=== PATIENT | male | born 1960 | race Caucasian/White ===

== ENCOUNTER 2022-01-19 08:59 | Day surgery (SDC) | payer MEDICARE, MEDICAID, SELFPAY ==
--- NOTE | 2022-01-18 14:24 | HO.ANESPROP2 ---
Documented by User: Nkechi Duran NP 01/18/22 14:25 HPI - Anesthesia Eval Consult details Narrative: 61yo M for Right Basilic Vein Transposition ESRD with HD [facility] Past Medical History Medical History Acute renal failure on dialysis Blind right eye Chronic kidney disease Edema End stage renal disease Gout HTN (hypertension) Neuropathy Sleep apnea Social History Social History Patient Tobacco Use Status: Never used Tobacco Use of substances other than those prescribed or required for medical reasons: No Are you DNR?: No Advance Directives: No Advance Directives Information Provided: Yes Meds Allergies Allergy/AdvReac Type Severity Reaction Status Date / Time prednisone AdvReac Unknown shortness Verified 08/20/19 00:00 of breath zolpidem AdvReac Hallucinati Verified 01/18/22 13:48 ons Home Medications Medication Instructions Recorded Confirmed Last Taken Type albuterol sulfate 90 mcg/actuation 2 puff inhalation Q6H PRN wheezing 01/18/22 01/18/22 Unknown History aerosol inhaler allopurinol 100 mg tablet 2 tab PO DAILY 01/18/22 01/18/22 Unknown History calcitriol 0.5 mcg capsule 1 cap PO 2XW 01/18/22 01/18/22 Unknown History clonidine HCl 0.1 mg tablet 1 tab PO TID 01/18/22 01/18/22 Unknown History clonidine HCl 0.3 mg tablet 1 tab PO TID 01/18/22 01/18/22 Unknown History ferrous sulfate 325 mg (65 mg 1 tab PO DAILY 01/18/22 01/18/22 Unknown History iron) tablet,delayed release folic acid 1 mg tablet 1 tab PO DAILY 01/18/22 01/18/22 Unknown History furosemide 80 mg tablet 1 tab PO BID 01/18/22 01/18/22 Unknown History gabapentin 100 mg capsule 2 cap PO TID 01/18/22 01/18/22 Unknown History levothyroxine 125 mcg tablet 1 tab PO QAM 01/18/22 01/18/22 Unknown History lorazepam 0.5 mg tablet 1 - 2 tab PO 01/18/22 Unknown History metoprolol succinate 50 mg 1 tab PO DAILY 01/18/22 01/18/22 01/19/22 History tablet,extended release 24 hr oxycodone 5 mg tablet 1 tab PO Q6H PRN severe pain 01/18/22 01/18/22 Unknown History pregabalin 50 mg capsule 1 cap PO DAILY PRN unknown 01/18/22 01/18/22 01/19/22 History sevelamer carbonate 800 mg tablet 3 tab PO TID 01/18/22 01/18/22 Unknown History Exam Exam Date and Time: January 18, 2022 142 Assessment and Plan Assessment Anesthesia Assessment: Chart Reviewed Documented by User: Vito Gloria MD 01/19/22 11:50 PMFSH Past Medical History Medical History Acute renal failure on dialysis Blind right eye Chronic kidney disease Edema End stage renal disease Gout HTN (hypertension) Neuropathy Sleep apnea Family History Family history of problems with anesthesia: No Surgical History History of Problems with Anesthesia: No Social History Social History Patient Tobacco Use Status: Never used Tobacco Use of substances other than those prescribed or required for medical reasons: No Are you DNR?: No Advance Directives: No Advance Directives Information Provided: Yes Meds Allergies Allergy/AdvReac Type Severity Reaction Status Date / Time prednisone AdvReac Unknown shortness Verified 08/20/19 00:00 of breath zolpidem AdvReac Hallucinati Verified 01/18/22 13:48 ons Home Medications Medication Instructions Recorded Confirmed Last Taken Type albuterol sulfate 90 mcg/actuation 2 puff inhalation Q6H PRN wheezing 01/18/22 01/18/22 Unknown History aerosol inhaler allopurinol 100 mg tablet 2 tab PO DAILY 01/18/22 01/18/22 Unknown History calcitriol 0.5 mcg capsule 1 cap PO 2XW 01/18/22 01/18/22 Unknown History clonidine HCl 0.1 mg tablet 1 tab PO TID 01/18/22 01/18/22 Unknown History clonidine HCl 0.3 mg tablet 1 tab PO TID 01/18/22 01/18/22 Unknown History ferrous sulfate 325 mg (65 mg 1 tab PO DAILY 01/18/22 01/18/22 Unknown History iron) tablet,delayed release folic acid 1 mg tablet 1 tab PO DAILY 01/18/22 01/18/22 Unknown History furosemide 80 mg tablet 1 tab PO BID 01/18/22 01/18/22 Unknown History gabapentin 100 mg capsule 2 cap PO TID 01/18/22 01/18/22 Unknown History levothyroxine 125 mcg tablet 1 tab PO QAM 01/18/22 01/18/22 Unknown History lorazepam 0.5 mg tablet 1 - 2 tab PO 01/18/22 Unknown History metoprolol succinate 50 mg 1 tab PO DAILY 01/18/22 01/18/22 01/19/22 History tablet,extended release 24 hr oxycodone 5 mg tablet 1 tab PO Q6H PRN severe pain 01/18/22 01/18/22 Unknown History pregabalin 50 mg capsule 1 cap PO DAILY PRN unknown 01/18/22 01/18/22 01/19/22 History sevelamer carbonate 800 mg tablet 3 tab PO TID 01/18/22 01/18/22 Unknown History Exam Airway Mallampati Class: III TM Dist: >3cm Neck ROM: Full Loose/Missing/Broken Teeth: Yes (lower bottom 4 teeth missing) Heart: [id number] Lungs: cta b/l Assessment and Plan Assessment Anesthesia Assessment: Anesthesia Plan Discussed Final Anesthetic Review Family History of Problems with Anesthesia: No History of Problems with Anesthesia: No NPO: Yes ASA Class: IV Final Preanesthetic Review: No Changes in Pt Med Stat, Meds/Allgs Chart Reviewed, Consent Obtained/Reviewed and Anes Risks/Benef Reviewed Patient Risk: High Procedure Risk: Intermediate Assessment/Block/Sedation in SS: Assess/Block/Sedation-SS Anesthetic Plan Anesthetic Plan: GA, MAC: and Agree w/ Assess. and Plan Disposition: Standard PACU
[2022-01-19] VITALS (10 sets, daily range): BP systolic 106–155; BP diastolic 56–85; PULSE 61–82; RESP 14–22; TEMP 35.8–36.3; O2SAT 93–100; BMI 33.5
[2022-01-19 10:29] LABS: Anion Gap 22 (12-20); Carbon Dioxide 23 mmol/L (22-29); Chloride 99 mmol/L (96-108); Potassium 5.5 mmol/L (3.3-5.1); Sodium 138 mmol/L (135-145)
[2022-01-19] MEDS: 0.9 % Sodium Chloride 1,000 ML 50 ML IVCONT (11:31)
--- NOTE | 2022-01-19 16:22 | P.OP_ITS ---
Operative Note Operative Note Date of Service: 01/19/22 Narrative: Pre-op Dx: ESRD Post-op Dx: ESRD Operation: Right arm basilic vein transposition Surgeon: Jarrod Garcia MD Anesthesia: MAC, local Procedure: The patient was placed on the OR table in a supine position. Lower extremity compression devices were placed. The anesthesiologist administered the pre- operative antibiotic. An US of the upper arm cephalic and basilic veins was performed on the right arm. After successful induction of MAC anesthesia, the right arm was prepped and draped in a sterile fashion. A surgical timeout took place. Local anesthetic was used. An incision was made over the upper arm basilic vein, above the elbow. The Bovie electrocautery was used to dissect through the subcutaneous tissue. The basilic vein was isolated and skeletonized. Vessel loops were placed around it. Two more incisions were made along the medial aspect of the upper arm, over the basilic vein. The entire basilic vein was dissected out. Branches were ligated and divided with 2-0 silk ties. The basilic vein was ligated and divided just above the medial epicondyle of the elbow. The basilic vein was marked and tunneled along the bicep. The brachial artery was dissected out, through the incision just above the elbow. Proximal and distal control was obtained. The cut end of the basilic vein was anastomosed to the brachial artery using a 6-0 Prolene suture, in a running fashion. The clamps were released and a thrill was noted. Hemostasis was maintained. The incisions were closed in layers. Surgical glue was applied. The hand was well perfused. The patient tolerated the procedure well. All in strument, sponge and needle counts were correct at the end of the case. Findings: The cephalic outflow vein from the first operation still has flow. It was not ligated.
[2022-01-19] MEDS: fentaNYL citrate/PF 100 MCG/2 ML VIAL 25 MCG IVPUSH ×4 (16:25→16:50)
[2022-01-19] MEDS: oxyCODONE HCl Immed Release 5 MG TABLET PO (16:45)
[2022-01-19] MEDS: Acetaminophen 325 MG TABLET 650 MG PO (17:35)
== END 2022-01-19 17:38 | disposition home or self-care (01) ==
PROVIDERS: Nurse Practitioner; PCP Internal Medicine; Visit Provider Transplant Surgery
PROC: (CPT 36819; principal; 2022-01-19 11:40)
DX: I12.0 Hypertensive chronic kidney disease with stage 5 chronic kidney disease or end stage renal disease (principal); N18.6 End stage renal disease; Z99.2 Dependence on renal dialysis; I25.10 Atherosclerotic heart disease of native coronary artery without angina pectoris; Z79.899 Other long term (current) drug therapy; Z88.8 Allergy status to other drugs, medicaments and biological substances
CPT/HCPCS: 36819; 36415; 80051; J0690; J2250; J2795; J3010; J3370

== ENCOUNTER → 2022-10-02 14:06 | Outpatient (BNVA) | payer MEDICARE, MEDICAID, SELFPAY | PROVIDERS: PCP Internal Medicine; Visit Provider Internal Medicine | DX: M79.604 Pain in right leg (principal); M79.605 Pain in left leg | CPT/HCPCS: 99202 ==

== ENCOUNTER 2022-11-29 06:11 | Inpatient (IN) | payer MEDICARE, MEDICAID, SELFPAY ==
[2022-11-29] VITALS (11 sets, daily range): BP systolic 132–191; BP diastolic 68–86; PULSE 73–90; RESP 14–18; TEMP 36.4–36.9; O2SAT 96–99; BMI 34.7; BMI 35.2
--- NOTE | ~2022-11-29 | US_ITS ---
EXAMINATION: US ARTERIAL DUPLEX LOWER EXTREMITY BILATERAL CLINICAL INFORMATION: Bilateral severe lower extremity pain, rule out peripheral arterial disease. COMPARISON: None TECHNIQUE: Linear transducer grayscale and duplex Doppler ultrasound images of the bilateral lower extremities were obtained. FINDINGS: Duplex Doppler interrogation of the bilateral lower extremities showed normal tri and biphasic arterial waveforms. Arterial peak systolic velocities are as follows: Right: Common femoral: 102 cm/sec Profunda femoral: 43 cm/sec Superficial femoral proximal: 55 cm/sec Superficial femoral mid: 53 cm/sec, incidental collateral branches incidentally noted. Superficial femoral distal: 53 cm/sec Popliteal: 60 cm/sec. Posterior tibial: 46 cm/sec Peroneal: 57 cm/sec Anterior tibial: 46 cm/sec Left: Common femoral: 108 cm/sec Profunda femoral: 62 cm/sec Superficial femoral proximal: 72 cm/sec Superficial femoral mid: 79 cm/sec. Superficial femoral distal: 99 cm/sec, incidental collateral branches. Popliteal: 85 cm/sec. Posterior tibial: 52 cm/sec, incidental collateral branches proximally. Peroneal: 114 cm/sec Anterior tibial: 144 cm/sec US/US arterial duplex LE BI IMPRESSION: Mildly asymmetrically elevated arterial velocities in the left anterior tibial and peroneal arteries suggestive of mild stenosis.
--- NOTE | ~2022-11-29 | CT_ITS ---
EXAMINATION: CT ABDOMEN AND PELVIS WITHOUT CONTRAST CLINICAL INFORMATION: Flank pain, rule out kidney stone. COMPARISON: None available. TECHNIQUE: Multidetector volumetric imaging was performed from the superior aspect of the liver through the pubic symphysis. Sagittal and coronal reformatted images were obtained on the technologist's workstation. This CT examination was performed using dose optimization techniques as appropriate, variously including the following: *Automated exposure control *Adjustment of mA and/or kV according to patient size (this includes techniques or standardized protocols for targeted exams where dose is matched to indication/reason for exam; i.e. extremities or head) *Use of iterative reconstruction technique DLP: 701 mGy-cm FINDINGS: CEILING CLEANER: Median sternotomy hardware. Pelvic phleboliths. Nonspecific bowel pattern. LUNG BASES: Enlarged heart. No pericardial effusion. Mild atelectasis. LIVER, GALLBLADDER, AND BILIARY TREE: The liver is normal in size, shape, and attenuation. No focal hepatic lesion or biliary ductal dilatation is present. The gallbladder is under distended containing 2 cm cholesterol gallstone but no gallbladder wall thickening, or obvious pericholecystic inflammatory changes. PANCREAS: Unremarkable. SPLEEN: Unremarkable. ADRENAL GLANDS: Unremarkable. KIDNEYS AND URETERS: Bilateral kidneys are atrophic. Bilateral renal lesions, some too small to characterize. 2 potential solid lesions in the left lower pole, larger measuring 2.6 cm. No hydronephrosis, hydroureter, or calculi seen. No perinephric stranding. BLADDER: Under distended with diffuse wall thickening. The right superior aspect of the urinary bladder is tethered into the origin of the right fat filled inguinal hernia. GASTROINTESTINAL TRACT: Under distended stomach, small hiatal hernia. Nonobstructive bowel pattern. Unremarkable terminal ileum and appendix. Moderate fecal retention. Diverticulosis without diverticulitis. ABDOMINAL WALL: Large fat filled inguinal hernias, right greater than left. The superior aspect of the urinary bladder is tethered into the origin of the right groin hernia. LYMPH NODES: No pathologic retroperitoneal lymphadenopathy. Nonspecific groin lymph nodes, largest on the left measures 2 cm. VASCULAR: Atherosclerotic calcifications nonaneurysmal aorta and tortuous iliac arteries. Somewhat small caliber inferior vena cava, correlate with volume status. PELVIC VISCERA: Prostate containing calcifications. Pelvic phleboliths. OSSEOUS STRUCTURES: No suspicious osseous lesions. CT/CT abdomen pelvis wo IV con IMPRESSION: No CT evidence of renal, ureteral, bladder calculi, or hydroureteronephrosis. Atrophic kidneys. Bilateral renal lesions with suspicion for left lower pole solid lesion(s). Initial renal sonographic evaluation recommended. If indeterminate, renal protocol MRI should be performed. Cholelithiasis. Diverticulosis. Large fat filled inguinal hernias, right greater than left. On the right, superior aspect of the urinary bladder tethered into the origin of the inguinal hernia. Fleischner guidelines were followed.
--- NOTE | ~2022-11-29 | US_ITS ---
EXAMINATION: US ABDOMEN LIMITED CLINICAL INFORMATION: Right upper quadrant pain. COMPARISON: CT scan of the abdomen and pelvis from earlier today. TECHNIQUE: Real-time imaging of the right upper quadrant abdominal viscera. FINDINGS: PANCREAS: Visualized portions unremarkable. LIVER: Unremarkable. GALLBLADDER: Multiple gallstones are seen without mural thickening or pericholecystic fluid. Color Doppler showed no abnormal vascular flow. COMMON BILE DUCT: Normal in caliber measuring 0.6 cm in diameter. RIGHT KIDNEY: Renal cortical thinning. Interpolar anechoic cyst measures 1.3 cm. No hydronephrosis or nephrolithiasis. Color Doppler showed no abnormal vascular flow. FREE FLUID: None. US/US abdomen limited IMPRESSION: 1. Cholelithiasis without evidence for acute cholecystitis. 2. Right renal cortical atrophy and small interpolar right renal cyst demonstrates benign features, not requiring follow-up at this time.
--- NOTE | ~2022-11-29 | XR_ITS ---
EXAMINATION: XR RIBS, RIGHT CLINICAL INFORMATION: Pain. COMPARISON: None available. TECHNIQUE: A frontal chest and 5 views of the right ribs were obtained. FINDINGS: Lungs are clear. No consolidation, pneumothorax, or pleural effusion. The cardiomediastinal silhouette and pulmonary vasculature are normal. There has been a prior median sternotomy. Osseous structures are unremarkable. Ribs are intact. No fractures are identified. XR/XR ribs RT min 3V w CXR1V IMPRESSION: No active cardiopulmonary disease. No evidence for rib fracture.
--- NOTE | ~2022-11-29 | XR_ITS ---
EXAMINATION: XR FOOT, LEFT CLINICAL INFORMATION: Left foot pain. COMPARISON: None available. TECHNIQUE: AP, lateral, and oblique views of the left foot. FINDINGS: Dorsiflexion of the digits limits evaluation of the phalanges. There is no acute fracture or dislocation. The tarsal bones are normally aligned. Small plantar and retrocalcaneal spurs are noted. Moderate to severe atherosclerosis is noted. XR/XR foot LT 2V IMPRESSION: 1. Small degenerative calcaneal spurs. No acute fracture. 2. Moderate to severe atherosclerosis.
--- NOTE | 2022-11-29 06:32 | MHC.EDTECH ---
Patient came in by ambulance, Patient was changed into hospital attire,vitals were taken. Call randhawa within reach
--- NOTE | 2022-11-29 06:45 | ED.GENADULT ---
HPI - General Adult General Chief complaint: General Medical Stated complaint: dizziness Time Seen by Provider: 11/29/22 06:40 Source: patient Mode of arrival: EMS Limitations: other (poor historian ) History of Present Illness HPI narrative: Patient is a 62 year old male with a history of ESRD who is presenting with bilateral leg pain and right rib pain. Patient states that his legs have been in pain for 12 years due to chronic wounds bilaterally. He is followed by the wound care center for these wounds has baseline numbness, and tingling. He is unable to describe his right rib pain, poor historian states it hurts w/ certain movements and with breathing but denies falls. Patient was unable to go to dialysis this morning due to his pain. He states hes here for pain control Related Data Home Medications Medication Instructions Recorded Confirmed allopurinol 100 mg tablet 2 tab PO DAILY 01/18/22 10/02/22 calcitriol 0.5 mcg capsule 1 cap PO 2XW 01/18/22 10/02/22 levothyroxine 125 mcg tablet 1 tab PO QAM 01/18/22 10/02/22 metoprolol succinate 50 mg 1 tab PO DAILY 01/18/22 10/02/22 tablet,extended release 24 hr pregabalin 50 mg capsule 1 cap PO DAILY PRN unknown 01/18/22 10/02/22 sevelamer carbonate 800 mg tablet 3 tab PO TID 01/18/22 10/02/22 Previous Rx's Medication Instructions Recorded atorvastatin 40 mg tablet 40 mg PO DAILY #30 caps 04/14/20 amlodipine 10 mg tablet 10 mg PO DAILY #30 tabs 09/23/20 Allergies Allergy/AdvReac Type Severity Reaction Status Date / Time prednisone AdvReac Unknown shortness Verified 10/02/22 14:09 of breath zolpidem AdvReac Hallucinati Verified 10/02/22 14:09 ons Review of Systems Review of Systems: Constitutional : No Weight loss, No Fever, No Chills, No Fatigue, No Malaise ENT/Mouth : No sore throat, No Rhinorrhea Eyes: No Eye Pain, No Swelling, No Redness Cardiovascular : No Chest Pain, No SOB, No Dyspnea on Exertion, No Orthopnea, No Edema, No Palpitations Respiratory : No Cough, No Sputum, No Wheezing Gastrointestinal : No Nausea, No Vomiting, No Diarrhea, No Constipation, No abdominal Pain, No Hematochezia, No Melena Genitourinary : No Dysuria, No Urinary Frequency, No Hematuria, Musculoskeletal : +Right sided rib pain, No joint pain, No Myalgias, No Joint Swelling Skin : +bilateral chornic leg wounds Neuro : No Weakness, No Numbness, No Dizziness, No Headache Psych : No Anxiety/Panic, No Depression All other systems reviewed and are negative Yes all other systems are reviewed and are negative [facility] Past Medical History Attestation statement: The following information was validated with the patient. Source: old records reviewed and nursing notes reviewed Medical History (Updated 11/29/22 @ 14:59 by BEN [place]) Acquired hypothyroidism Acute renal failure on dialysis Atherosclerosis of inupiat coronary artery of inupiat heart without angina pectoris Blind right eye Chronic diastolic heart failure Chronic gout due to renal impairment Chronic kidney disease Edema End stage renal disease ESRD on dialysis Essential hypertension Foot pain, bilateral Gout Hallucinations HTN (hypertension) Hyperlipidemia Impacted cerumen of left ear Impaired fasting glucose Iron deficiency anemia Moderate episode of recurrent major depressive disorder Neuropathy Normocytic anemia Obesity, Class II, BMI 35-39.9 Polyp of colon, adenomatous Restless leg syndrome Seasonal allergic rhinitis due to pollen Sensory neuropathy Sleep apnea Stasis dermatitis of both legs Thrombocytopenia Surgical History (Updated 10/01/22 @ 12:13 by Jeronimo Lopez) History of coronary artery bypass graft Social History Social History Alcohol intake: never Patient Tobacco Use Status: Never used Tobacco Smoked in Last 30 Days: No Use of substances other than those prescribed or required for medical reasons: No Advance Directives: Yes Advance Directives Information Provided: No Advance Directives on File: No Physical Exam ED Vital Signs: Vital Signs - 24 hr 11/29/22 06:37 11/29/22 06:48 11/29/22 09:27 Temperature 98.0 F 98.0 F Pulse Rate 73 73 73 Respiratory Rate 18 18 Blood Pressure 137/75 137/75 155/82 H Pulse Oximetry 97 97 Oxygen Delivery Method Room Air Room Air 11/29/22 09:36 11/29/22 09:28 11/29/22 09:31 Temperature 98.3 F Pulse Rate 74 73 78 Respiratory Rate 16 Blood Pressure 166/80 H 132/74 139/68 Pulse Oximetry 96 Oxygen Delivery Method Room Air 11/29/22 11:31 11/29/22 13:51 11/29/22 14:33 Temperature 97.6 F 98.4 F Pulse Rate 79 90 81 Respiratory Rate 14 14 16 Blood Pressure 139/81 171/83 H Pulse Oximetry 96 98 Oxygen Delivery Method Room Air Room Air BMI result Body Mass Index 34.7 VSS Appearance: Alert.? Oriented X3.? No acute distress.? Head: Normocephalic, atraumatic, no step-offs or deformities Eyes: Pupils equal, round and reactive to light.? ENT: Pharynx normal.? Neck: Normal inspection.? Neck supple.? CVS: Normal heart rate and rhythm.? Pulses normal.? Respiratory: No respiratory distress.? Breath sounds normal.? Abdomen: Soft and nontender.? Skin: Skin warm and dry.? Normal skin color.? Normal skin turgor.? Extremities: +bilateral leg wounds to anterior shins that are chronic. No discharge or draingage noted form the wounds, no erythema or warmth. Pulses 1+ dorsalis pedis, anterior tibialis pulses symmetric bilaterally. Motor and sensory function intact bilaterally.? No calf ttp. 5/5 strength to bilateral upper and lower extremities. No footdrop. He is noted to have a large sore to the ball of his left foot lateral aspect, this has been there for a while per patient Back: +Right rib tenderness to palpation. No midline tenderness, no C-spine tenderness, full range of motion, no CVA tenderness bilaterally Neuro: Oriented X 3.? No motor deficit.? No sensory deficit. CN 2-12 intact Course Reevaluation(s) Reevaluation #1: CBC with a macrocytic anemia, chemistry with high potassium 5.4 will given Lokelma, anion gap of 22 likely secondary to acute dehydration poor p.o. intake, also elevated BUN and creatinine chronic in nature however dehydration likely contributing patient eating and drinking well. Patient does have a history of CKD and this is not a new finding, patient on hemodialysis scheduled to be dialyzed on Sunday. Troponin elevated 62.8 likely secondary to CKD, repeat troponin 77.9 not meeting delta criteria, patient without chest pain and shortness of breath, his right-sided pain is likely musculoskeletal, I do not suspect ACS. EKG is also nonischemic. BNP elevated 598, no baseline to compare with no sign sof fluid overload on exam or chf. D-dimer negative, unlikely PE/DVT. COVID negative. CT abdomen pelvis with no evidence of renal or ureteral bladder calculi or hydro ureter nephrosis, atrophic kidneys noted bilateral renal lesions with suspicion for left lower pole solid lesion, discuss this with patient, cholelithiasis no signs of acute cholecystitis, will obtain right upper quadrant ultrasound to rule out cholecystitis due to location of patient's pain. Diverticulosis. Bilateral large fat filled inguinal hernias right greater than left. Time: 11:30 Reevaluation #2: Ultrasound limited of abdomen right upper quadrant with cholelithiasis without evidence for acute cholecystitis. Right renal cortical atrophy and small interpolar right renal cyst. Time: 13:00 Reevaluation #3: US pending. Received a call patient's potassium 6.0. Will give calcium gluconate, D50, albuterol, patient's last glucose in the 80s will not give insulin at this time. Plan is for hospital admission patient will also likely require dialysis. Time: 14:23 Additional Reevaluation(s): Patient's BUN and creatinine chronically elevated secondary to CKD patient missed dialysis, reach out to renal, patient to be admitted, we will correct his potassium, they will dialyze patient while in the hospital. Dr. woods aware of plan. Medications Administered Generic Name Dose Route Start Last Admin Trade Name Freq PRN Reason Stop Dose Admin Calcium Gluconate 2 gm in 100 mls @ 50 mls/hr 11/29/22 14:19 11/29/22 14:39 Calcium Gluconate IV 11/29/22 16:18 50 mls/hr ONCE ONE Administration Discontinued Medications Generic Name Dose Route Start Last Admin Trade Name Freq PRN Reason Stop Dose Admin Albuterol Sulfate 10 mg 11/29/22 14:19 11/29/22 14:31 Albuterol Sulfate 2.5 Mg/0.5 Ml Vial.Neb INHALE 11/29/22 14:20 10 mg ONCE ONE Administration Dextrose 25 gm 11/29/22 14:19 11/29/22 14:39 Dextrose 50 % 25 Gm/50 Ml Syringe IVPUSH 11/29/22 14:20 25 gm ONCE ONE Administration Hydromorphone HCl 1 mg 11/29/22 09:46 11/29/22 10:11 Hydromorphone Hcl 1 Mg/Ml Syringe IVPUSH 11/29/22 09:47 1 mg ONCE ONE Administration Protocol Lidocaine 2 patch 11/29/22 13:15 11/29/22 14:38 Lidocaine 4 % Patch Adh..Patch TRANSDERMA 11/29/22 13:16 2 patch ONCE ONE Administration Protocol Morphine Sulfate 4 mg 11/29/22 06:46 11/29/22 08:35 Morphine Sulfate 4 Mg/Ml Cartridge IVPUSH 11/29/22 06:47 4 mg ONCE ONE Administration Protocol Sodium Zirconium Cyclosilicate 10 gm 11/29/22 13:14 11/29/22 14:39 Sodium Zirconium Cyclosilicate 10 Gm Powd.Pack PO 11/29/22 13:15 10 gm ONCE ONE Administration Medical Decision Making Medical Decision Making [facility] Narrative: 62 year old male presenting with bilateral leg and right rib pain. Exam significant for +bilateral leg wounds to anterior shins that are chronic. No discharge or draingage noted form the wounds, no erythema or warmth. Pulses 1+ dorsalis pedis, anterior tibialis pulses symmetric bilaterally. Motor and sensory function intact bilaterally.? No calf ttp. 5/5 strength to bilateral upper and lower extremities. No footdrop. He is noted to have a large sore to the ball of his left foot lateral aspect, this has been there for a while per patient. R rib pain w/ clear breath sounds This is likely chronic leg pain. Unlikely gangrene, necrotizing infection or acute arterial infarction since it is bilateral in nature, extremities are neurovacularly intact, and chronic in nature. No signs of acute cellulitis, septic joint. Rib pain is likely chornic in nature and musculoskeletal. No signs of flail chest or pneumothorax. This is unlikely pe, acs due to stable vitals and lack of chest pain or shortness of breath. Wounds on legs likely chronic, no signs of osteomyelitis, necrosis, gangrene, arterial or venous occlusion. Plan: labs, imaging, ekg, urine Differential Diagnosis Differential Diagnoses: The differential diagnosis associated with the presentation includes This is likely chronic leg pain. Unlikely gangrene, necrotizing infection or acute arterial infarction since it is bilateral in nature, extremities are neurovacularly intact, and chronic in nature. Rib pain is likely chornic in nature. This is unlikely pe, acs due to stable vitals and lack of chest pain or shortness of breath. Wounds on legs likely chronic, no signs of osteomyelitis, necrosis, gangrene, arterial or venous occlusion. Admission/Observation Consideration of admission/observation: Escalation of care including admission/observation considered Not indicated. Lab Data MDM Lab Attestation statement: I reviewed the patient's lab results. 11/29/22 08:05 11/29/22 08:05 Labs: Lab Results 11/29/22 11/29/22 11/29/22 Range/Units 08:05 08:05 08:05 WBC 8.9 (4.8-10.8) X10*3/uL RBC 3.64 L (4.60-5.80) X10*6/uL Hgb 12.3 L (14.0-18.0) g/dl Hct 37.1 L (42.0-52.0) % MCV 101.9 H (80.0-98.0) fL MCH 33.8 H (27.0-33.0) pg MCHC 33.2 (31.0-36.0) g/dl RDW 15.3 (11.0-16.0) % Plt Count 136 L (160-400) X10*3/uL MPV 9.6 (9.4-12.4) fL Immature Gran % (Auto) 0.6 H (0.0-0.4) % Neut % (Auto) 63.5 (45-73) % Lymph % (Auto) 21.7 (20-40) % [place] % (Auto) 11.1 H (2-11) % Eos % (Auto) 2.4 (0-4) % Baso % (Auto) 0.7 (0-2) % Lymph # (Auto) 1.9 (1.2-4.9) X10*3/uL [place] # (Auto) 1.0 (0.1-1.2) X10*3/uL Eos # (Auto) 0.2 (0.0-0.4) X10*3/uL Baso # (Auto) 0.1 (0.0-0.2) X10*3/uL Abs Immat Gran (auto) 0.05 H (0.00-0.03) X10*3/uL Absolute Neuts (auto) 5.7 (2.0-8.3) x10*3/uL Absolute Nucleated RBC 0.000 (0.0-0.012) X10*3/uL Nucleated RBC % (auto) 0.0 (0.0-0.2) /100WBC D-Dimer High Sensitivty 199 NG/ML Sodium 137 (135-145) mmol/L Potassium 5.4 H (3.3-5.1) mmol/L Chloride 93 L (96-108) mmol/L Carbon Dioxide 27 (22-29) mmol/L Anion Gap 22 H (12-20) BUN 68 H (9-16) mg/dL Creatinine 10.44 H* (0.5-1.4) mg/dL Estim Creat Clear Calc 8.5 Estimated GFR 5 Random Glucose 86 (60-115) mg/dL Lactic Acid (0.5-2.0) mmol/L Calcium 11.0 H (8.4-10.2) mg/dL Magnesium 2.1 (1.6-2.6) mg/dL Total Bilirubin 0.3 (0.0-1.0) mg/dL AST 15 (5-37) U/L ALT 5 (0-40) U/L Alkaline Phosphatase 88 (39-117) U/L Total Creatine Kinase 67 (38-174) U/L Troponin I High Sens (<3.5-35.0) ng/L C-Reactive Protein 1.38 H (< or = 0.50) mg/dL B-Natriuretic Peptide (<100) pg/mL Total Protein 7.2 (6.5-8.0) g/dL Albumin 3.8 (3.5-5.0) g/dL Lipase 31 (8-78) U/L Urine Color Urine Appearance Urine pH (5.0-9.0) Ur Specific [place] (1.005-1.025) Urine Protein (Neg-Trace) mg/dL Urine Glucose (UA) (Negative) mg/dL Urine Ketones (Negative) mg/dL Urine Blood (Negative) Urine Nitrite (Negative) Ur Leukocyte Esterase (Negative) Urine RBC (0-2) /HPF Urine WBC (0-5) /HPF Ur Squamous Epith Cells (0-2) /HPF Urine Bacteria (None Seen) Hyaline Casts (0-2) /LPF COVID-19 ([facility]) (Negative) COVID-19 Clin Com 11/29/22 11/29/2223 Range/Units 08:05 08:05 08:05 WBC (4.8-10.8) X10*3/uL RBC (4.60-5.80) X10*6/uL Hgb (14.0-18.0) g/dl Hct (42.0-52.0) % MCV (80.0-98.0) fL MCH (27.0-33.0) pg MCHC (31.0-36.0) g/dl RDW (11.0-16.0) % Plt Count (160-400) X10*3/uL MPV (9.4-12.4) fL Immature Gran % (Auto) (0.0-0.4) % Neut % (Auto) (45-73) % Lymph % (Auto) (20-40) % [place] % (Auto) (2-11) % Eos % (Auto) (0-4) % Baso % (Auto) (0-2) % Lymph # (Auto) (1.2-4.9) X10*3/uL [place] # (Auto) (0.1-1.2) X10*3/uL Eos # (Auto) (0.0-0.4) X10*3/uL Baso # (Auto) (0.0-0.2) X10*3/uL Abs Immat Gran (auto) (0.00-0.03) X10*3/uL Absolute Neuts (auto) (2.0-8.3) x10*3/uL Absolute Nucleated RBC (0.0-0.012) X10*3/uL Nucleated RBC % (auto) (0.0-0.2) /100WBC D-Dimer High Sensitivty NG/ML Sodium (135-145) mmol/L Potassium (3.3-5.1) mmol/L Chloride (96-108) mmol/L Carbon Dioxide (22-29) mmol/L Anion Gap (12-20) BUN (9-16) mg/dL Creatinine (0.5-1.4) mg/dL Estim Creat Clear Calc Estimated GFR Random Glucose (60-115) mg/dL Lactic Acid 1.0 (0.5-2.0) mmol/L Calcium (8.4-10.2) mg/dL Magnesium (1.6-2.6) mg/dL Total Bilirubin (0.0-1.0) mg/dL AST (5-37) U/L ALT (0-40) U/L Alkaline Phosphatase (39-117) U/L Total Creatine Kinase (38-174) U/L Troponin I High Sens 62.8 H (<3.5-35.0) ng/L C-Reactive Protein (< or = 0.50) mg/dL B-Natriuretic Peptide 598 H (<100) pg/mL Total Protein (6.5-8.0) g/dL Albumin (3.5-5.0) g/dL Lipase (8-78) U/L Urine Color Urine Appearance Urine pH (5.0-9.0) Ur Specific [place] (1.005-1.025) Urine Protein (Neg-Trace) mg/dL Urine Glucose (UA) (Negative) mg/dL Urine Ketones (Negative) mg/dL Urine Blood (Negative) Urine Nitrite (Negative) Ur Leukocyte Esterase (Negative) Urine RBC (0-2) /HPF Urine WBC (0-5) /HPF Ur Squamous Epith Cells (0-2) /HPF Urine Bacteria (None Seen) Hyaline Casts (0-2) /LPF COVID-19 ([facility]) (Negative) COVID-19 Clin Com 11/29/22 11/29/22 11/29/22 Range/Units 08:05 10:58 13:57 WBC (4.8-10.8) X10*3/uL RBC (4.60-5.80) X10*6/uL Hgb (14.0-18.0) g/dl Hct (42.0-52.0) % MCV (80.0-98.0) fL MCH (27.0-33.0) pg MCHC (31.0-36.0) g/dl RDW (11.0-16.0) % Plt Count (160-400) X10*3/uL MPV (9.4-12.4) fL Immature Gran % (Auto) (0.0-0.4) % Neut % (Auto) (45-73) % Lymph % (Auto) (20-40) % [place] % (Auto) (2-11) % Eos % (Auto) (0-4) % Baso % (Auto) (0-2) % Lymph # (Auto) (1.2-4.9) X10*3/uL [place] # (Auto) (0.1-1.2) X10*3/uL Eos # (Auto) (0.0-0.4) X10*3/uL Baso # (Auto) (0.0-0.2) X10*3/uL Abs Immat Gran (auto) (0.00-0.03) X10*3/uL Absolute Neuts (auto) (2.0-8.3) x10*3/uL Absolute Nucleated RBC (0.0-0.012) X10*3/uL Nucleated RBC % (auto) (0.0-0.2) /100WBC D-Dimer High Sensitivty NG/ML Sodium (135-145) mmol/L Potassium 6.0 H* (3.3-5.1) mmol/L Chloride (96-108) mmol/L Carbon Dioxide (22-29) mmol/L Anion Gap (12-20) BUN (9-16) mg/dL Creatinine (0.5-1.4) mg/dL Estim Creat Clear Calc Estimated GFR Random Glucose (60-115) mg/dL Lactic Acid (0.5-2.0) mmol/L Calcium (8.4-10.2) mg/dL Magnesium (1.6-2.6) mg/dL Total Bilirubin (0.0-1.0) mg/dL AST (5-37) U/L ALT (0-40) U/L Alkaline Phosphatase (39-117) U/L Total Creatine Kinase (38-174) U/L Troponin I High Sens 77.9 H (<3.5-35.0) ng/L C-Reactive Protein (< or = 0.50) mg/dL B-Natriuretic Peptide (<100) pg/mL Total Protein (6.5-8.0) g/dL Albumin (3.5-5.0) g/dL Lipase (8-78) U/L Urine Color Urine Appearance Urine pH (5.0-9.0) Ur Specific [place] (1.005-1.025) Urine Protein (Neg-Trace) mg/dL Urine Glucose (UA) (Negative) mg/dL Urine Ketones (Negative) mg/dL Urine Blood (Negative) Urine Nitrite (Negative) Ur Leukocyte Esterase (Negative) Urine RBC (0-2) /HPF Urine WBC (0-5) /HPF Ur Squamous Epith Cells (0-2) /HPF Urine Bacteria (None Seen) Hyaline Casts (0-2) /LPF COVID-19 ([facility]) Negative (Negative) COVID-19 Clin Com See Note 11/29/22 Range/Units 14:28 WBC (4.8-10.8) X10*3/uL RBC (4.60-5.80) X10*6/uL Hgb (14.0-18.0) g/dl Hct (42.0-52.0) % MCV (80.0-98.0) fL MCH (27.0-33.0) pg MCHC (31.0-36.0) g/dl RDW (11.0-16.0) % Plt Count (160-400) X10*3/uL MPV (9.4-12.4) fL Immature Gran % (Auto) (0.0-0.4) % Neut % (Auto) (45-73) % Lymph % (Auto) (20-40) % [place] % (Auto) (2-11) % Eos % (Auto) (0-4) % Baso % (Auto) (0-2) % Lymph # (Auto) (1.2-4.9) X10*3/uL [place] # (Auto) (0.1-1.2) X10*3/uL Eos # (Auto) (0.0-0.4) X10*3/uL Baso # (Auto) (0.0-0.2) X10*3/uL Abs Immat Gran (auto) (0.00-0.03) X10*3/uL Absolute Neuts (auto) (2.0-8.3) x10*3/uL Absolute Nucleated RBC (0.0-0.012) X10*3/uL Nucleated RBC % (auto) (0.0-0.2) /100WBC D-Dimer High Sensitivty NG/ML Sodium (135-145) mmol/L Potassium (3.3-5.1) mmol/L Chloride (96-108) mmol/L Carbon Dioxide (22-29) mmol/L Anion Gap (12-20) BUN (9-16) mg/dL Creatinine (0.5-1.4) mg/dL Estim Creat Clear Calc Estimated GFR Random Glucose (60-115) mg/dL Lactic Acid (0.5-2.0) mmol/L Calcium (8.4-10.2) mg/dL Magnesium (1.6-2.6) mg/dL Total Bilirubin (0.0-1.0) mg/dL AST (5-37) U/L ALT (0-40) U/L Alkaline Phosphatase (39-117) U/L Total Creatine Kinase (38-174) U/L Troponin I High Sens (<3.5-35.0) ng/L C-Reactive Protein (< or = 0.50) mg/dL B-Natriuretic Peptide (<100) pg/mL Total Protein (6.5-8.0) g/dL Albumin (3.5-5.0) g/dL Lipase (8-78) U/L Urine Color Yellow Urine Appearance Clear Urine pH 8.5 (5.0-9.0) Ur Specific [place] 1.010 (1.005-1.025) Urine Protein 300 (3+) H (Neg-Trace) mg/dL Urine Glucose (UA) 100 H (Negative) mg/dL Urine Ketones Negative (Negative) mg/dL Urine Blood Trace H (Negative) Urine Nitrite Negative (Negative) Ur Leukocyte Esterase Negative (Negative) Urine RBC 0-2 (0-2) /HPF Urine WBC 0-5 (0-5) /HPF Ur Squamous Epith Cells 0-2 (0-2) /HPF Urine Bacteria None Seen (None Seen) Hyaline Casts 0-2 (0-2) /LPF COVID-19 ([facility]) (Negative) COVID-19 Clin Com Independent Interpretation I performed an independent interpretation of an: EKG (Ventricular rate of 74, FL normal, QRS normal, QT/QTC normal. No ST elevations or inversions concerning for acute ischemia.), Plain X-Ray (XR/XR foot LT 2V IMPRESSION: 1. Small degenerative calcaneal spurs. No acute fracture. 2. Moderate to severe atherosclerosis.) and Ultrasound (US/US abdomen limited IMPRESSION: 1. Cholelithiasis without evidence for acute cholecystitis. 2. Right renal cortical atrophy and small interpolar right renal cyst demonstrates benign features, not requiring follow-up at this time.) Radiology Impression Discussion of test interpretation with radiology: I have reviewed the radiologist's reading. Prescription Management I considered prescription management with: Pain Medication Morphine for pain. Core Measures AMI core measures followed: Yes Measure exclusions: not indicated Critical Care Time Critical Care Time Critical Care Time: Yes Total Critical Care Time: 35 Attestation: I attest to this time spent taking care of the patient, obtaining history, physical, reviewing labs, imaging, speaking to my attending, speaking to specialist. Discharge Plan Discharge Clinical Impression: Bilateral leg pain, Chronic wound, Acute hyperkalemia, CKD (chronic kidney disease) Patient Disposition: Admitted As Inpatient
--- NOTE | 2022-11-29 06:46 | ECG_ITS ---
Test Reason : WEAKNESS Blood Pressure : / mmHG Vent. Rate : 074 BPM Atrial Rate : 074 BPM P-R Int : 208 ms QRS Dur : 092 ms QT Int : 402 ms P-R-T Axes : 053 -28 074 degrees QTc Int : 446 ms Normal sinus rhythm Minimal voltage criteria for LVH, may be normal variant ( Gregory product ) Inferior infarct , age undetermined Abnormal ECG When compared with ECG of 19-JUL-2015 12:18, Vent. rate has increased BY [address] no longer elevated in Lateral leads T wave inversion no longer evident in Inferior leads Referred By: Cong Jha Electronically Signed By:NICHELLE AGUIAR
--- NOTE | 2022-11-29 06:46 | ED.GENADULT ---
HPI - General Adult General Chief complaint: General Medical Stated complaint: dizziness Time Seen by Provider: 11/29/22 06:40 Source: patient Mode of arrival: ambulatory Limitations: other (poor historian) History of Present Illness HPI narrative: Patient is a 62 year old male with a history of ESRD on dialysis presenting today with a primary complaint of right lower rib pain and pain in his bilateral leg and foot bounds. Patient states he has been having pain in his legs lasting 12 years. He is seen for his wounds at the wound clinic for these wounds. Patient also having right lower rib pain but unable to give more details, poor historian. Related Data Home Medications Medication Instructions Recorded Confirmed allopurinol 100 mg tablet 2 tab PO DAILY 01/18/22 10/02/22 calcitriol 0.5 mcg capsule 1 cap PO 2XW 01/18/22 10/02/22 levothyroxine 125 mcg tablet 1 tab PO QAM 01/18/22 10/02/22 metoprolol succinate 50 mg 1 tab PO DAILY 01/18/22 10/02/22 tablet,extended release 24 hr pregabalin 50 mg capsule 1 cap PO DAILY PRN unknown 01/18/22 10/02/22 sevelamer carbonate 800 mg tablet 3 tab PO TID 01/18/22 10/02/22 Previous Rx's Medication Instructions Recorded atorvastatin 40 mg tablet 40 mg PO DAILY #30 caps 04/14/20 amlodipine 10 mg tablet 10 mg PO DAILY #30 tabs 09/23/20 Allergies Allergy/AdvReac Type Severity Reaction Status Date / Time prednisone AdvReac Unknown shortness Verified 10/02/22 14:09 of breath zolpidem AdvReac Hallucinati Verified 10/02/22 14:09 ons Review of Systems Review of Systems: Constitutional : No Weight loss, No Fever, No Chills, No Fatigue, No Malaise ENT/Mouth : No sore throat, No Rhinorrhea Eyes: No Eye Pain, No Swelling, No Redness Cardiovascular : No Chest Pain, No SOB, No Dyspnea on Exertion, No Orthopnea, No Edema, No Palpitations Respiratory : No Cough, No Sputum, No Wheezing Gastrointestinal : No Nausea, No Vomiting, No Diarrhea, No Constipation, No abdominal Pain, No Hematochezia, No Melena Genitourinary : No Dysuria, No Urinary Frequency, No Hematuria, Musculoskeletal : No joint pain, No Myalgias, No Joint Swelling Skin : +painful chronic leg and feet wounds bilaterally, No rash Neuro : No Weakness, No Numbness, No Dizziness, No Headache Psych : No Anxiety/Panic, No Depression All other systems reviewed and are negative Yes all other systems are reviewed and are negative [facility] Past Medical History Medical History (Updated 11/29/22 @ 07:12 by BEN [place]) Acquired hypothyroidism Acute renal failure on dialysis Atherosclerosis of [place] coronary artery of [place] heart without angina pectoris Blind right eye Chronic diastolic heart failure Chronic gout due to renal impairment Chronic kidney disease Edema End stage renal disease ESRD on dialysis Essential hypertension Foot pain, bilateral Gout Hallucinations HTN (hypertension) Hyperlipidemia Impacted cerumen of left ear Impaired fasting glucose Iron deficiency anemia Moderate episode of recurrent major depressive disorder Neuropathy Normocytic anemia Obesity, Class II, BMI 35-39.9 Polyp of colon, adenomatous Restless leg syndrome Seasonal allergic rhinitis due to pollen Sensory neuropathy Sleep apnea Stasis dermatitis of both legs Thrombocytopenia Surgical History (Updated 10/01/22 @ 12:13 by Jeronimo Lopez) History of coronary artery bypass graft Social History Social History Alcohol intake: never Patient Tobacco Use Status: Never used Tobacco Smoked in Last 30 Days: No Use of substances other than those prescribed or required for medical reasons: No Advance Directives: Yes Advance Directives Information Provided: No Advance Directives on File: No Physical Exam ED Vital Signs: Vital Signs - 24 hr 11/29/22 06:37 11/29/22 06:48 11/29/22 09:27 Temperature 98.0 F 98.0 F Pulse Rate 73 73 73 Respiratory Rate 18 18 Blood Pressure 137/75 137/75 155/82 H Pulse Oximetry 97 97 Oxygen Delivery Method Room Air Room Air 11/29/22 09:36 11/29/22 09:28 11/29/22 09:31 Temperature 98.3 F Pulse Rate 74 73 78 Respiratory Rate 16 Blood Pressure 166/80 H 132/74 139/68 Pulse Oximetry 96 Oxygen Delivery Method Room Air 11/29/22 11:31 Temperature 97.6 F Pulse Rate 79 Respiratory Rate 14 Blood Pressure 139/81 Pulse Oximetry 96 Oxygen Delivery Method Room Air BMI result Body Mass Index 34.7 VSS Appearance: Alert.? Oriented X3.? No acute distress.? Head: Normocephalic, atraumatic, no step-offs or deformities Neck: Normal inspection.? Neck supple.? CVS: Normal heart rate and rhythm.? Pulses normal.? Respiratory: No respiratory distress.? Breath sounds normal.? Abdomen: Soft and nontender.? Skin: +Closed skin wounds to the bilateral legs and feet, no discharge or drainage noted. Pulses 2+ and symmetric bilaterally. Motor and sensory function intact bilaterally. Skin warm and dry. Normal skin turgor.? Extremities: No lower extremity edema.? No calf ttp. 5/5 strength to bilateral upper and lower extremities Back: No midline tenderness, no C-spine tenderness, full range of motion, no CVA tenderness bilaterally Neuro: Oriented X 3.? No motor deficit.? No sensory deficit. CN 2-12 intact Medications Administered Discontinued Medications Generic Name Dose Route Start Last Admin Trade Name Freq PRN Reason Stop Dose Admin Hydromorphone HCl 1 mg 11/29/22 09:46 11/29/22 10:11 Hydromorphone Hcl 1 Mg/Ml Syringe IVPUSH 11/29/22 09:47 1 mg ONCE ONE Administration Protocol Morphine Sulfate 4 mg 11/29/22 06:46 11/29/22 08:35 Morphine Sulfate 4 Mg/Ml Cartridge IVPUSH 11/29/22 06:47 4 mg ONCE ONE Administration Protocol Medical Decision Making Medical Decision Making [facility] Narrative: 62 year old female with bilateral leg pain and right sided leg pain. Exam significant for chronic bilateral leg and foot wounds with no discharge, drainage, or signs of infection noted. Bilateral leg pain is likely chronci in nature. Unlikely gangrene or necrotizing infection, no threat to limb and extremities neurovascularly intact. Rib pain unlikely ACS, PE as no shortness of breath or chest pain. Plan: labs, urine, EKG, imaging Differential Diagnosis Differential Diagnoses: The differential diagnosis associated with the presentation includes Bilateral leg pain is likely chronci in nature. Unlikely gangrene or necrotizing infection, no threat to limb and extremities neurovascularly intact. Rib pain unlikely ACS, PE as no shortness of breath or chest pain. Admission/Observation Consideration of admission/observation: Escalation of care including admission/observation considered Not indicated. Lab Data [facility] Lab Attestation statement: I reviewed the patient's lab results. 11/29/22 08:05 11/29/22 08:05 Labs: Lab Results 11/29/22 11/29/22 11/29/22 Range/Units 08:05 08:05 08:05 WBC 8.9 (4.8-10.8) X10*3/uL RBC 3.64 L (4.60-5.80) X10*6/uL Hgb 12.3 L (14.0-18.0) g/dl Hct 37.1 L (42.0-52.0) % MCV 101.9 H (80.0-98.0) fL MCH 33.8 H (27.0-33.0) pg MCHC 33.2 (31.0-36.0) g/dl RDW 15.3 (11.0-16.0) % Plt Count 136 L (160-400) X10*3/uL MPV 9.6 (9.4-12.4) fL Immature Gran % (Auto) 0.6 H (0.0-0.4) % Neut % (Auto) 63.5 (45-73) % Lymph % (Auto) 21.7 (20-40) % [place] % (Auto) 11.1 H (2-11) % Eos % (Auto) 2.4 (0-4) % Baso % (Auto) 0.7 (0-2) % Lymph # (Auto) 1.9 (1.2-4.9) X10*3/uL [place] # (Auto) 1.0 (0.1-1.2) X10*3/uL Eos # (Auto) 0.2 (0.0-0.4) X10*3/uL Baso # (Auto) 0.1 (0.0-0.2) X10*3/uL Abs Immat Gran (auto) 0.05 H (0.00-0.03) X10*3/uL Absolute Neuts (auto) 5.7 (2.0-8.3) x10*3/uL Absolute Nucleated RBC 0.000 (0.0-0.012) X10*3/uL Nucleated RBC % (auto) 0.0 (0.0-0.2) /100WBC D-Dimer High Sensitivty 199 NG/ML Sodium 137 (135-145) mmol/L Potassium 5.4 H (3.3-5.1) mmol/L Chloride 93 L (96-108) mmol/L Carbon Dioxide 27 (22-29) mmol/L Anion Gap 22 H (12-20) BUN 68 H (9-16) mg/dL Creatinine 10.44 H* (0.5-1.4) mg/dL Estim Creat Clear Calc 8.5 Estimated GFR 5 Random Glucose 86 (60-115) mg/dL Lactic Acid (0.5-2.0) mmol/L Calcium 11.0 H (8.4-10.2) mg/dL Magnesium 2.1 (1.6-2.6) mg/dL Total Bilirubin 0.3 (0.0-1.0) mg/dL AST 15 (5-37) U/L ALT 5 (0-40) U/L Alkaline Phosphatase 88 (39-117) U/L Total Creatine Kinase 67 (38-174) U/L Troponin I High Sens (<3.5-35.0) ng/L C-Reactive Protein 1.38 H (< or = 0.50) mg/dL B-Natriuretic Peptide (<100) pg/mL Total Protein 7.2 (6.5-8.0) g/dL Albumin 3.8 (3.5-5.0) g/dL Lipase 31 (8-78) U/L COVID-19 ([facility]) (Negative) COVID-19 Clin Com 11/29/22 11/29/22 11/29/22 Range/Units 08:05 08:05 08:05 WBC (4.8-10.8) X10*3/uL RBC (4.60-5.80) X10*6/uL Hgb (14.0-18.0) g/dl Hct (42.0-52.0) % MCV (80.0-98.0) fL MCH (27.0-33.0) pg MCHC (31.0-36.0) g/dl RDW (11.0-16.0) % Plt Count (160-400) X10*3/uL MPV (9.4-12.4) fL Immature Gran % (Auto) (0.0-0.4) % Neut % (Auto) (45-73) % Lymph % (Auto) (20-40) % [place] % (Auto) (2-11) % Eos % (Auto) (0-4) % Baso % (Auto) (0-2) % Lymph # (Auto) (1.2-4.9) X10*3/uL [place] # (Auto) (0.1-1.2) X10*3/uL Eos # (Auto) (0.0-0.4) X10*3/uL Baso # (Auto) (0.0-0.2) X10*3/uL Abs Immat Gran (auto) (0.00-0.03) X10*3/uL Absolute Neuts (auto) (2.0-8.3) x10*3/uL Absolute Nucleated RBC (0.0-0.012) X10*3/uL Nucleated RBC % (auto) (0.0-0.2) /100WBC D-Dimer High Sensitivty NG/ML Sodium (135-145) mmol/L Potassium (3.3-5.1) mmol/L Chloride (96-108) mmol/L Carbon Dioxide (22-29) mmol/L Anion Gap (12-20) BUN (9-16) mg/dL Creatinine (0.5-1.4) mg/dL Estim Creat Clear Calc Estimated GFR Random Glucose (60-115) mg/dL Lactic Acid 1.0 (0.5-2.0) mmol/L Calcium (8.4-10.2) mg/dL Magnesium (1.6-2.6) mg/dL Total Bilirubin (0.0-1.0) mg/dL AST (5-37) U/L ALT (0-40) U/L Alkaline Phosphatase (39-117) U/L Total Creatine Kinase (38-174) U/L Troponin I High Sens 62.8 H (<3.5-35.0) ng/L C-Reactive Protein (< or = 0.50) mg/dL B-Natriuretic Peptide 598 H (<100) pg/mL Total Protein (6.5-8.0) g/dL Albumin (3.5-5.0) g/dL Lipase (8-78) U/L COVID-19 ([facility]) (Negative) COVID-19 Clin Com 08/23/23 08/23/23 Range/Units 08:05 10:58 WBC (4.8-10.8) X10*3/uL RBC (4.60-5.80) X10*6/uL Hgb (14.0-18.0) g/dl Hct (42.0-52.0) % MCV (80.0-98.0) fL MCH (27.0-33.0) pg MCHC (31.0-36.0) g/dl RDW (11.0-16.0) % Plt Count (160-400) X10*3/uL MPV (9.4-12.4) fL Immature Gran % (Auto) (0.0-0.4) % Neut % (Auto) (45-73) % Lymph % (Auto) (20-40) % [place] % (Auto) (2-11) % Eos % (Auto) (0-4) % Baso % (Auto) (0-2) % Lymph # (Auto) (1.2-4.9) X10*3/uL [place] # (Auto) (0.1-1.2) X10*3/uL Eos # (Auto) (0.0-0.4) X10*3/uL Baso # (Auto) (0.0-0.2) X10*3/uL Abs Immat Gran (auto) (0.00-0.03) X10*3/uL Absolute Neuts (auto) (2.0-8.3) x10*3/uL Absolute Nucleated RBC (0.0-0.012) X10*3/uL Nucleated RBC % (auto) (0.0-0.2) /100WBC D-Dimer High Sensitivty NG/ML Sodium (135-145) mmol/L Potassium (3.3-5.1) mmol/L Chloride (96-108) mmol/L Carbon Dioxide (22-29) mmol/L Anion Gap (12-20) BUN (9-16) mg/dL Creatinine (0.5-1.4) mg/dL Estim Creat Clear Calc Estimated GFR Random Glucose (60-115) mg/dL Lactic Acid (0.5-2.0) mmol/L Calcium (8.4-10.2) mg/dL Magnesium (1.6-2.6) mg/dL Total Bilirubin (0.0-1.0) mg/dL AST (5-37) U/L ALT (0-40) U/L Alkaline Phosphatase (39-117) U/L Total Creatine Kinase (38-174) U/L Troponin I High Sens 77.9 H (<3.5-35.0) ng/L C-Reactive Protein (< or = 0.50) mg/dL B-Natriuretic Peptide (<100) pg/mL Total Protein (6.5-8.0) g/dL Albumin (3.5-5.0) g/dL Lipase (8-78) U/L COVID-19 ([facility]) Negative (Negative) COVID-19 Clin Com See Note Independent Interpretation I performed an independent interpretation of an: EKG Prescription Management I considered prescription management with: Pain Medication Morphine given for pain. Core Measures AMI core measures followed: Yes Measure exclusions: not indicated Critical Care Time Critical Care Time Critical Care Time: No Discharge Plan Discharge Clinical Impression: Bilateral leg pain, Chronic wound Patient Disposition: Still a Patient Instructions: Leg Pain (ED) Prescriptions: No Action atorvastatin 40 mg tablet 40 mg PO DAILY Qty: 30 3RF amlodipine 10 mg tablet 10 mg PO DAILY Qty: 30 3RF metoprolol succinate 50 mg tablet extended release 24 hr 1 tab PO DAILY allopurinol 100 mg tablet 2 tab PO DAILY calcitriol 0.5 mcg capsule 1 cap PO 2XW levothyroxine 125 mcg tablet 1 tab PO QAM pregabalin 50 mg capsule 1 cap PO DAILY PRN (Reason: unknown) sevelamer carbonate 800 mg tablet 3 tab PO TID
--- OUTSIDE RECORDS SUMMARY | 2022-11-29 07:13 | XMS_ITS | Continuity of Care Document ---
Author Name Unknown Organization [facility] Address [address] [place] [id number]- Care Team Providers Care External Relations Manager Name Role Phone Keri BELTRAN, Leo Moy Primary Care Physician [place] [facility] [place]): [place]06[place]22 - 10/07/[address] [address]- Encounter Diagnosis Leg pain(Final) - 10/06/22 Leg pain(Final) - 10/07/22 Discharge Disposition: A-D/C Home Attending Physician: Kay Mendosa MD Admitting Physician: Nicci Underwood MD Referring Physician: Not on Staff, Referring MD Allergies, Adverse Reactions, Alerts Substance Reaction Severity Status Ambien Prednisone Active Immunizations Given and Recorded Vaccine Date Status Refusal Reason SARS-CoV-2 (COVID-19) mRNA BNT-162b2 vac 05/31/21 Recorded SARS-CoV-2 (COVID-19) mRNA BNT-162b2 vac 06/23/20 Recorded SARS-CoV-2 (COVID-19) mRNA BNT-162b2 vac 06/01/20 Recorded Medications acetaminophen 325 mg oral tablet 650 mg, By Mouth, Every 4 hours, PRN, for 5 days, Temperature Greater than 100.5 not to exceed 4000mg/day, # 40 tablet, Refills 0, Tot. Refills 0, Acute 10/12/22 14:53:00 EDT, Pain , Mild, 10/07/22 14:53:00 EDT, Route to Pharmacy Electronically, [facility]... Start Date: 10/07/22 Stop Date: 10/12/22 Status: Ordered amLODIPine 10 mg oral tablet 1 tablet = 10 mg, By Mouth, Daily, # 90 tablet, 0 Refills, Maintenance, 10/06/22 22:50:00 EDT, Tablet, Partial fill upon patient request if the prescription is for a schedule II opioid drug. Start Date: 10/06/22 Status: Ordered aspirin 81 mg oral delayed release tablet 81 mg, 1, tablet, By Mouth, Daily, # 90 tablet, Refills 0, Maintenance, 05/06/19 18:22:00 EST Start Date: 05/06/19 Status: Ordered docusate sodium 100 mg oral capsule 1 capsule = 100 mg, By Mouth, 2 times a day, PRN as needed for constipation, # 20 capsule, 0 Refills, Maintenance, 08/09/22 12:05:00 EDT, Capsule, Partial fill upon patient request if the prescription is for a schedule II opioid drug. Start Date: 08/09/22 Status: Ordered duloxetine 30 mg oral enteric coated capsule 1 capsule = 30 mg, By Mouth, Daily, # 30 capsule, 0 Refills, Maintenance, 08/09/22 12:01:00 EDT, Partial fill upon patient request if the prescription is for a schedule II opioid drug. Start Date: 08/09/22 Status: Ordered Epoetin Joshua 1 mL = 20,000 units, Subcutaneous Injection, Every Sunday, Sunday and Sunday, 0 Refills, Maintenance, 07/25/21 15:39:00 EDT, Injection, Partial fill upon patient request if the prescription is fora schedule II opioid drug. Start Date: 07/25/21 Status: Ordered Fish Oil 1000 mg oral capsule 2 capsule = 2,000 mg, By Mouth, Daily, 0 Refills, Maintenance, 08/09/22 12:02:00 EDT, Partial fill upon patient request if the prescription is for a schedule II opioid drug. Start Date: 08/09/22 Status: Ordered hydrALAZINE 25 mg oral tablet 50 mg, Tablet, By Mouth, 10/07/22 15:00:00 EDT Start Date: 10/07/22 Stop Date: 10/07/22 Status: Completed hydrALAZINE 50 mg oral tablet 1 tablet = 50 mg, By Mouth, 3 times a day, # 90 tablet, 0 Refills, Maintenance, 08/01/22 13:07:00 EDT, Tablet, [id number], Partial fill upon patient request if the prescription is for a schedule II opioid drug., 175, cm, 08/01/22 11:52:... Start Date: 08/01/22 Status: Ordered levothyroxine 125 mcg (0.125 mg) oral tablet 1 tablet = 0.125 mg, By Mouth, Daily, # 90 tablet, 4 Refills, Maintenance, Tablet Start Date: 07/10/11 Status: Ordered loratadine 10 mg oral tablet 10 mg, 1, tablet, By Mouth, Daily, # 30 tablet, Refills 0, Maintenance, 10/06/22 22:55:00 EDT, Partial fill upon patient request if the prescription is for a schedule II opioid drug. Start Date: 10/06/22 Status: Ordered metoprolol 50 mg oral tablet, extended release 50 mg, XL Tablet, By Mouth, Hold for: SBP <100, HR <60bpm, 10/07/22 9:00:00 EDT Start Date: 10/07/22 Stop Date: 10/07/22 Status: Completed metoprolol succinate 25 mg oral capsule, extended release 2 capsule = 50 mg, By Mouth, Daily, # 30 capsule, 0 Refills, Maintenance, 06/03/19 11:47:00 EST, ERCapsule Start Date: 06/03/19 Status: Ordered oxyCODONE 5 mg oral tablet 5 mg, Tablet, By Mouth, Every 6 hours, Hold for: SBP <100, RR<12/lethargy, PRN for Pain , Moderate, Routine, 10/06/22 23:47:00 EDT Start Date: 10/06/22 Stop Date: 10/08/22 Status: Discontinued oxyCODONE 5 mg oral tablet 5 mg, By Mouth, Every 6 hours, PRN, for 5 days, # 20 tablet, Refills 0, Tot. Refills 0, Acute 10/12/22 14:44:00 EDT, Pain , Moderate, 10/07/22 14:44:00 EDT, Route to Pharmacy Electronically, [facility], Partial fill upon patient request... Start Date: 10/07/22 Stop Date: 10/12/22 Status: Ordered polyethylene glycol 3350 oral powder for reconstitution = 17 Gm, By Mouth, Daily, PRN Constipation, for 15 days, dissolve in water before taking, # 255 Gm,0 Refills, Acute 10/22/22 14:45:00 EDT, 10/07/22 14:45:00 EDT, REC Powder, [facility], Partial fill upon patient request if the prescript... Start Date: 10/07/22 Stop Date: 10/22/22 Status: Ordered sevelamer carbonate 800 mg oral tablet 2 tablet = 1,600 mg, By Mouth, 3 times a day Start Date: 01/27/22 Status: Ordered Vitamin D3 1000 intl units oral tablet 1 tablet = 1,000 International_Units, By Mouth, Daily, # 90 tablet, 3 Refills, Maintenance Start Date: 04/20/11 Status: Ordered Problem List Condition Confirmation Course Effective Dates Status H ealth Status Informant Arthroscopy of knee Confirmed Active Chronic renal impairment Confirmed Active CKD stage 3 Confirmed Active CAD (coronary artery disease) Confirmed Active Edema Confirmed Active Gout Confirmed Active H/O: obesity Confirmed Active Heart failure with preserved ejection fraction Confirmed Active Hypertension Confirmed Active Hypothyroidism Confirmed Active Obese class I Confirmed Active Sleep apnea Confirmed Active Results Orders for Microbiology Reports Name Date Blood Culture (BLOOD CULTURE) 10/06/22 Microbiology Reports TEST:Blood Culture STATUS:Unauthenticated BODY SITE: SOURCE:Blood COLLECTED DATE/TIME:10/06/22 11:55 AM Blood Culture SPECIMEN DESCRIPTION : BLOOD LAC SPECIAL REQUESTS : NONE CULTURE : NO GROWTH AFTER 24 HOURS REPORT STATUS : PRELIMINARY REPORT Radiology Reports * Exam Date Time Procedure Performing Provider Status 10/06/22 10:29 AM Chest 2 Views Frontal and Lat Emmanuel Barry; Auth (Verified) Notes: (Chest 2 Views Frontal and Lat) Reason For Exam: Shortness of Breath RESULT: Chest 2 Views Frontal and Lat Chest 2 Views Frontal and Lat HX OF PRESENT ILLNESS: pt co bilateral leg pain blateral hand pain for 5 years; Reason: Shortness of Breath; Clinical Question(s): CHF COMPARISON: Chest radiograph from 07/31/2022. FINDINGS: LINES AND TUBES: None. LUNGS AND PLEURA: Clear lungs. Normal pulmonary vascularity. Trace bilateral pleural effusions, but decreased since previously. No pneumothorax. HEART, MEDIASTINUM AND NATE: Mild prominence of the cardiac silhouette, unchanged. Normal mediastinal and hilar contour. BONES AND SOFT TISSUES: No acute abnormality. Status post median sternotomy with sternal fixation. IMPRESSION: Trace bilateral pleural effusions, decreased since previously. No acute abnormality.. I have personally reviewed the images and I agree with this report. WSN: [id number] Ordering Physician: Carmen Guzman Dictated By: Yogesh Wilson MD Dictated Date/Time: 10/06/22 10:45 a Reviewed By: Trae Faulkner MD Signed By: Trae Faulkner MD Signed Date/Time: 10/06/22 10:50 am Transcribed By: JUSTEN Transcribed Date/Time: 10/06/22 10:37 am Vital Signs Most recent to oldest [Reference Range]: 1 2 3 Height 175 cm (10/07/22 1:56 PM) 175 cm (10/07/22 11:03 AM) 175 cm (10/07/22 7:47 AM) Weight 106.4 kg (10/06/22 7:28 PM) Oxygen Saturation [94-100 %] 98 % (10/07/22 1:56 PM) 95 % (10/07/22 11:03 AM) 98 % (10/07/22 7:47 AM) Pulse Rate [55-90 bpm] 71 bpm (10/07/22 1:56 PM) 78 bpm (10/07/22 11:03 AM) 77 bpm (10/07/22 8:34 AM) Body Mass Index [18.5-24.99 kg/m2] 34.74 kg/m2 *>HHI* (10/06/22 7:28 PM) Blood Pressure [90-138/55-84 mm Hg] 126/84mm Hg (10/07/22 3:44 PM) 129/77mm Hg (10/07/22 1:56 PM) 135/71mm Hg (10/07/22 11:03 AM) Respiratory Rate [16-30 br/min] 18 br/min (10/07/22 2:41 PM) 18 br/min (10/07/22 1:56 PM) 18 br/min (10/07/22 1:41 PM) Temperature [96.8-100.4 DegF] 98.2 DegF (10/07/22 1:56 PM) 97.4 DegF (10/07/22 11:03 AM) 98 DegF (10/07/22 7:47 AM) Mode of Delivery (Oxygen) Room air (10/07/22 1:56 PM) Room air (10/07/22 11:03 AM) Room air (10/07/22 7:47 AM) Blood pressure sites Arm, left (10/07/22 1:56 PM) Arm, left (10/07/22 11:03 AM) Arm, left (10/07/22 7:47 AM) Temperature Route Oral (10/07/22 1:56 PM) Oral (10/07/22 11:03 AM) Oral (10/07/22 7:47 AM) Dry Weight 106.4 kg (10/06/22 7:28 PM) Social History Social History Type Response Smoking Status Never (less than 100 in lifetime) entered on: 08/01/22 Sex Admission evaluation note * Vero Curry: PERFORM, MODIFY Event Display: Admission Note Authored Date: [id number] Patient: ??MINAL COTTRELL ? Age:??62 Years?Sex:??Male?:??1960?? Chief Complaint/Reason for Consultation Chronic bilateral leg pain for at least 5 years, was as as needed Percocet prescribed by his PCP. ??Seems medication adjustment happened and patient was longer able to control pain. ??Missed dialysissessions due to inability to walk due to pain. History of Present Illness Patient is a 62-year-old male with past medical history of morbid obesity, CAD, s/p x3 CABG (May 2019), KOLE???on CPAP, ESRD???on hemodialysis Sunday/Sunday/Sunday, essential hypertension, hyperlipidemia, gout, hypothyroidism, chronic bilateral lower extremity pain due to known atherosclerosis ofbypass graft with resting pain/claudication???follows with Dr. [facility] for [facility].?? Last visit was 3 days ago. ?? Patient came to emergency department today because he was no longer able to tolerate his chronic pain after his chronic pain medications were ?adjusted.?Patient told this ghost writer that he has long-standing history (at least 5 years) of bilateral chronic lower extremity pain ; and??has been managed well on as needed Percocet that was prescribed by his PCPs??Dr. García and Dr. Berry; apparently Dr. Berry has moved her practice to [place]. ??Unable to set tease out from the patient as to what has changed recently, as he is changing subject very quick something else??regarding when asked whether Percocet is no longer enough, or whether it was reduced. ??Patient becomes defensive stating that he is not a drug addict.?Reportedly PCP??requested that patient see pain specialist (which he did this past Monday 10/02, he cannot recall MD's name?? stating it is somewhere in [place] ).?? Apparently, after being seen by pain specialist,??he was referred to vascular specialist??prior to??starting patient on pain medication plan.?He saw Dr. Perez??for initial visit on 10/02,??and was instructed to come back in a month for completion of the work-up. ??Unfortunately,??due to severity of ongoing pain, along with?? frustration with??the system , ??he missed his Sunday dialysis (10/04), and was unable to complete dialysis today due to the amount of pain that he was then.?? He clarifies that the pain is chronic, and is unchanged in character/location from his chronic pain.?? Denies any new ulcers/lesions/skin rash/edema.?? Remainder review systems is negative for chest pain/dyspnea/cough, no abdominal pain/distention/nausea/vomiting/diarrhea/melena; no symptoms. ?? ED course: Moderately hypertensive while in the emergency department.?? No fevers.?? No hypoxia or tachypnea.?? General chemistry panel was reassuring; without evidence of electrolyte derangements.?? CBC was notable for slightly worsening macrocytic anemia with H/H dropped from previous 13.1/40.8 (08/01) -9.3/20.1 today.?? Chronic thrombocytopenia seems stable. Twelve-lead EKG was obtained to ensure there were no electrolyte???associated abnormalities/arrhythmias, and fortunately there was none.?? No evidence of ischemic findings either. ?? He required 2 doses of 1 mg IV Dilaudid while in the emergency department.?? He is to be admitted for pain management.?? Possible inpatient addiction medicine consultation depending on his overnight clinical course. Review of Systems ?? Constitutional symptoms: ??Negative except as documented in HPI.?? Respiratory symptoms:??No dyspnea. ??No cough. ??No pleuritic pain. Cardiovascular symptoms:??No chest pain, no syncopal events. Gastrointestinal symptoms: ??Negative Genitourinary symptoms: ??Negative Musculoskeletal symptoms:??Chronic bilateral lower extremity pain. Neurologic symptoms:?Negative Objective ? Vital Signs?? Temperature: 98 DegF (10/06/22 19:34:00) Temperature Route: Oral (10/06/22 19:34:00) Pulse Rate: 74 bpm (10/06/22 19:34:00) Respiratory Rate: 18 br/min (10/06/22 23:36:00) Systolic Blood Pressure:??143 mm Hg??High (10/06/22 19:34:00) Diastolic Blood Pressure:??97 mm Hg??High (10/06/22 19:34:00) Blood pressure sites: Arm, right (10/06/22 19:34:00) Mean Arterial Pressure: 112 mm Hg (10/06/22 19:34:00) Pulse Pressure: 46 mm Hg (10/06/22 19:34:00) Oxygen Saturation:??93 %??Low (10/06/22 19:34:00) Mode of Delivery (Oxygen): Room air (10/06/22 19:34:00) Early Warning Score: 5 (10/06/22 23:40:56) ? Pain Scores?? No qualifying data available. ? Intake/Output? No Data Available ? Physical Exam GEN:??Moderately obese gentleman. ??PAEZ x3. ??Nontoxic. ??Appears to be in??moderate distress due to bilateral??lower extremity pain, requesting??additional pain medication.?? Appears euvolemic on exam. CV: Regular rate and rhythm. S1 and S2 normal . No murmurs PULM: ??BS clear to auscultation BL. ABD: Soft. Nontender. Non-distended. Normal bowel sounds present x4 quadrants EXT: No lower extremity edema or asymmetry.?? No hair on the distal aspects of both lower extremity.?? Some healed scabs, without??cellulitic??changes on both shins. NEURO: No gross neurologic focal deficits. PSYCH: AOx3.Patient is calm and pleasant.? Assessment/Plan Patient is a 62-year-old male with past medical history of morbid obesity, CAD, s/p x3 CABG (May 2019), KOLE???on CPAP, ESRD???on hemodialysis Sunday/Sunday/Sunday, essential hypertension, hyperlipidemia, gout, hypothyroidism, chronic bilateral lower extremity pain due to known atherosclerosis ofbypass graft with resting pain/claudication???follows with Dr. Perez for vascular surgery servicesat [facility].?? Last visit was 3 days ago. ? Diagnoses 1. ??Leg pain ??(M79.606) 2. ??Intractable pain ??(R52) ?? Longstanding history of bilateral lower extremity pain, suspect due to known atherosclerotic disease of both legs ??? Recent pain medication adjustment, now with inadequate ain control -Previously was prescribed Percocet by his PCPs, something likely happened and patient was referredto pain specialist, 10/02.??Was subsequently sent to Dr. Perez, who saw him on 10/03 for initial visit with plan for another visit in approximately 1 mo for US..?? Did not yet receive new pain management prescription, and grew frustrated with hw long it takes and still in a lot of pain. ??? It would be ideal, to contact PCPs office during normal business hours (which could be challenging given October weekend) to clarify patient's prior pain management and what has recently changed -Consider inpatient pain specialist if evaluation, to expedite pain medication plan, which will allow for compliance with hemodialysis attendance ??? Tonight will admit patient for pain management with??PRN Tylenol / Oxycodone ??5 mg q6hrs / andDilaudid 1mg q4hrs (was started on Dilaudid by emergency department with good response). ? ESRD???change in HD Sunday/Sunday/Sunday Missed Sunday hemodialysis session, only partially completed Sunday hemodialysis session -Dr. Cash of nephrology kindly saw patient in the emergency department, and will continue hemodialysis as per his current schedule; given there is no indication for urgent hemodialysis ??? Resume all antihypertensive medications, per his medication list -resume sevelamer TID ??? Repeat BMP/electrolytes in the morning ??? Monitor volume status with serial I/Os and daily weights -renal diet ?? Acute on chronic a macrocytic anemia, anemia of chronic disease ??? Slightly down trended from previous 13.1/40.8, two 9.3/28.1 on the day of admission.?? Could bedue to missing EPO tx that he normally receives every Sunday/Sunday/Sunday ??? Denied any symptoms to suggest GI bleed/other bleeding ??? Will Hemoccult stools, although suspicion is very low given he is only on low-dose ASA ??? Repeat CBC in the morning ?? Chronic and Stable Issues: ?? CAD s/p CABG -Continue low-dose ASA, metoprolol, omega 3 supplementation ?? Essential hypertension -Resume hydralazine, metoprolol ?? Hypothyroidism -Continue levothyroxine 0.125mg QD ?? Quality Measures: DVT prophylaxis:??Heparin SQ TID Diet:??Renal diet Code Status:??Full code, as per discussion with patient at bedside ? Histories Allergies Allergies ?(Active and Proposed Allergies Only) Ambien? (Severity: Unknown severity, Onset: Unknown) ?Reactions: Prednisone ? Past Medical History/Problem List Active Problems??(13) Anemia Arthroscopy of knee CAD (coronary artery disease) Chronic renal impairment CKD stage 3 Edema Gout H/O: obesity Heart failure with preserved ejection fraction Hypertension Hypothyroidism Obese class I Sleep apnea ? Past Surgical History x3 CABG??May 2019 ? Social History Alcohol Details:??Use: Never. Employment/School Details:??Status: Retired. Exercise Details:??Self assessment: Poor condition. Home/Environment Details:??Living situation: Home/Independent. ??Lives with: Alone. Substance Abuse Details:??Use: Past. ??Type: Cocaine, Marijuana, Prescription medications. Tobacco Details:??Use: Never (less than 100 in lifetime). Electronic Cigarette/Vaping Details:??Electronic Cigarette Use: Never. ? Psychosocial History Lives alone at home, independent ADLs. ?? Family History No significant family history of her mother or father that patient is aware of Sister ()??breast cancer,??pancreatic cancer ? Medications Home Medications Amlodipine (amLODIPine 10 mg oral tablet)?1?tab(s)?10?Milligram?By Mouth?Daily Aspirin (aspirin 81 mg oral delayed release tablet)?81?Milligram?1?tablet?By Mouth?Daily Cholecalciferol (Vitamin D3 1000 intl units oral tablet)?1?tab(s)?1,000?International Unit?By Mouth?Daily Docusate (docusate sodium 100 mg oral capsule)?1?capsule?100?Milligram?By Mouth?2times a day?as needed?as needed for constipation Duloxetine (duloxetine 30 mg oral enteric coated capsule)?1?capsule?30?Milligram?By Mouth?Daily Epoetin Joshua?1?Milliliter?20,000?unit(s)?Subcutaneous Injection?Every Sunday, Sunday and Sunday hydrALAZINE (hydrALAZINE 50 mg oral tablet)?1?tab(s)?50?Milligram?By Mouth?3 times a day Levothyroxine (levothyroxine 125 mcg (0.125 mg) oral tablet)?1?tab(s)?0.125?Milligram?By Mouth?Daily Loratadine (loratadine 10 mg oral tablet)?10?Milligram?1?tablet?By Mouth?Daily Metoprolol (metoprolol succinate 25 mg oral capsule, extended release)?2?capsule?50?Milligram?By Mouth?Daily [place]-3 Polyunsaturated Fatty Acids (Fish Oil 1000 mg oral capsule)?2?capsule?2,000?Milligram?By Mouth?Daily Sevelamer (sevelamer carbonate 800 mg oral tablet)?2?tab(s)?1,600?Milligram?By Mouth?3 times a day ? Results Recent Labs BLOOD COUNT & DIFF WBC 7.1 k/mm3 ()?? 10/06/2022 11:55 RBC 2.72 m/mm3 (Low)?? 10/06/2022 11:55 Hgb 9.3 Gm/dL (Low)?? 10/06/2022 11:55 Hct 28.1 % (Low)?? 10/06/2022 11:55 MCV 103.3 femtoliters (High)?? 10/06/2022 11:55 MCH 34.2 pg (High)?? 10/06/2022 11:55 MCHC 33.1 g/dL ()?? 10/06/2022 11:55 Platelet Count 121 k/mm3 (Low)?? 10/06/2022 11:55 RDW-SD 53.1 femtoliters (High)?? 10/06/2022 11:55 MPV 10.1 femtoliters ()?? 10/06/2022 11:55 Nucleated RBC (Automated) 0.0 #/100 WBC'S ()?? 10/06/2022 11:55 Abs. NRBC 0.0 k/mm3 ()?? 10/06/2022 11:55 Abs. Neut 5.1 k/mm3 ()?? 10/06/2022 11:55 Abs. Lymph 1.0 k/mm3 ()?? 10/06/2022 11:55 Abs. [place] 0.7 k/mm3 ()?? 10/06/2022 11:55 Abs. Eo 0.2 k/mm3 ()?? 10/06/2022 11:55 Abs. Baso 0.1 k/mm3 ()?? 10/06/2022 11:55 Neut % 71.5 % ()?? 10/06/2022 11:55 Lymph % 14.2 % (Low)?? 10/06/2022 11:55 [place] % 10.2 % ()?? 10/06/2022 11:55 Eos % 2.4 % ()?? 10/06/2022 11:55 Baso % 0.7 % ()?? 10/06/2022 11:55 Imm Gran 1.0 % ()?? 10/06/2022 11:55 Abs. Imm Gran 0.1 k/mm3 ()?? 10/06/2022 11:55 ?? CHEM GENERAL Sodium 139 mmol/L ()?? 10/06/2022 11:55 Potassium 4.3 mmol/L ()?? 10/06/2022 11:55 Chloride 95 mmol/L (Low)?? 10/06/2022 11:55 Bicarbonate Level 31 mmol/L (High)?? 10/06/2022 11:55 Anion Gap 13 ()?? 10/06/2022 11:55 Glucose Level 98 mg/dL ()?? 10/06/2022 11:55 BUN 36 mg/dL (High)?? 10/06/2022 11:55 Creatinine-Blood 6.8 mg/dL (High)?? 10/06/2022 11:55 Estimated GFR Creatinine 8 ML/MIN/1.73 M2 ()?? 10/06/2022 11:55 Calcium 9.6 mg/dL ()?? 10/06/2022 11:55 ?? HEME OTHER Hold Blue Top SPECIMEN DISCARDED AFTER 4 HOURS. ()?? 10/06/2022 11:55 ?? MISC. CHEMISTRY Hold Green Top SPECIMEN DISCARDED AFTER 1 WEEK ()?? 10/06/2022 11:55 Hold Gel Top SPECIMEN DISCARDED AFTER 1 WEEK ()?? 10/06/2022 11:55 Hold Gel Top 2 SPECIMEN DISCARDED AFTER 1 WEEK ()?? 10/06/2022 11:55 ?? VIROLOGY COVID-19 by RT-PCR NEGATIVE ()?? 10/06/2022 10:40 ? Imaging(s) Chest 2 Views Frontal and Lat ?? 10/06/2022 10:29??by Trae Faulkner MD IMPRESSION: ?? Trace bilateral pleural effusions, decreased since previously. No acute abnormality.. ? Hospital Progress note * Shi Orellana RN: PERFORM, SIGN, VERIFY Event Display: Progress Note Hospital Authored Date: Patient: MINAL COTTRELL JR Age: 62 years Sex: Male : 1960 Associated Diagnoses: None Author: Shi Orellana RN Findings Evaluation (Discharge Note: Patient A+Ox4. 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 Medicated with PRN oxycodone and tylenol for bilat leg pain with fair effect. Lungs clear,+BS. Bilat lower leg ulcers which patient reports he recently saw Dr Perez who provided a cream and is using it with a dressing at home. Tolerating PO well. Ambulating with walker to bathroom and gary k to bed with steady gait. All discharge paperwork reviewed and signed. IV removed. Left unit via wheelchair to pharmacy and brown entrance to meet ride home.) * Erin Middleton RN: PERFORM, SIGN, VERIFY Event Display: Progress Note Hospital Authored Date: Patient: MINAL COTTRELL JR Age: 62 years Sex: Male : 1960 Associated Diagnoses: None Author: Erin Middleton RN Findings Narrative/Incidental Behavioral Resource RN Note - Chart reviewed due to triggering of systems- generated psych consult per Hanna Suicide Severity Scale on edge polisher assessment of suicidality. Patient stated, yes when asked if ???wished to be ?? in the past month but denied having ???suicidal thoughts?? inthe past month. Symptoms MAY warrant formal psych consult at this time - relayed this to Dr. Mendosa via Cortext. Please continue to assess for depression and suicidal ideation, consider placing formal psychiatric consult if warranted. Education on symptoms of depression and when to seek help placed in pt's dc plan. Please do not hesitate to order new psychiatric consult if patient???s SI status changes. Please call Behavior Resource team at [phone] or Cortext/page with any questions or concerns: Vitor Iglesias, Rica Ramsay, Lucy Montana or Erin Middleton . * Mickey Mercer RN: PERFORM, SIGN, VERIFY Event Display: Progress Note Hospital Authored Date: Patient: MINAL COTTRELL JR Age: 62 years Sex: Male : 1960 Associated Diagnoses: None Author: Mickey Mercer RN Findings Upon arrival to unit patient alert and oriented to self/time/place/event Patient reports 06/16 LE pain, medicated with PRN Dilaudid 1mg prior to arrival to unit Patient ambulatory with walker and tolerating PO intake Will continue to monitor, safety and comfort measures maintained Consult note * Patricia Cash MD: PERFORM, MODIFY, MODIFY, MODIFY Event Display: Consultation Note Authored Date: [id number] Patient: ??MINAL COTTRELL ? Age:??62 Years?Sex:??Male?:??1960?? Primary Applications Developer:??_ Attending:??Not on Staff, Attending MD Admission Date: 10/06/2022 ?? Chief Complaint and Reason for Consultation ?? LE pain, Maintain MWF regimen of HD ? History of Present Illness ?? 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 Now presenting lower extremity excruciating pain that is now resolved with IV Dilaudid.?? Patient has had2 reduce the duration of his hemodialysis session and calluses under because of lower extremity pain.?? He reports it is not acute, has been going on for a while but nobody wants to prescribe opioidsfor his pain.?? He was previously on Percocet that has since discontinued.?? Now being evaluated by vascular for lower extremity ulcers as well as this pain. ?? Denies shortness of breath, nausea vomiting, any acute illness.?? He has g decent urine output at baseline apparently.?? Review of system otherwise negative Past Medical History Active Problems??(13) Anemia Arthroscopy of knee CAD (coronary artery disease) Chronic renal impairment CKD stage 3 Edema Gout H/O: obesity Heart failure with preserved ejection fraction Hypertension Hypothyroidism Obese class I Sleep apnea ? Medications: Medication List ? Active Medications ?Ordered ? Hydromorphone: 1 mg, 1 mL, IV Push Slowly, Every 15 minutes, PRN: ? Pain , Moderate. ?Prescribed ? Cholecalciferol: 1,000 International_Units, 1 tablet, By Mouth, ? Daily, 90 tablet. ? hydrALAZINE: 50 mg, 1 tablet, By Mouth, 3 times a day, 90 tablet, 0 ? Refill(s). ? Levothyroxine: 0.125 mg, 1 tablet, By Mouth, Daily, 90 tablet. ?Documented ? Amlodipine: 10 mg, 1 tablet, By Mouth, Daily, 0 Refill(s). ? Aspirin: 81 mg, 1 tablet, By Mouth, Daily, 90 tablet, 0 Refill(s). ? Docusate: 100 mg, 1 capsule, By Mouth, 2 times a day, PRN: as needed ? for constipation, 20 capsule, 0 Refill(s). ? Duloxetine: 30 mg, 1 capsule, By Mouth, Daily, 30 capsule, 0 ? Refill(s). ? Epoetin Joshua: 20,000 units, 1 mL, Subcutaneous Injection, Every ? Sunday, Sunday and Sunday, 0 Refill(s). ? Metoprolol: 50 mg, 2 capsule, By Mouth, Daily, 30 capsule, 0 ? Refill(s). ? [place]-3 Polyunsaturated Fatty Acids: 2,000 mg, 2 capsule, By Mouth, ? Daily, 0 Refill(s). ? Sevelamer: 1,600 mg, 2 tablet, By Mouth, 3 times a day. ? Medications Inactivated in the Last 72 Hours ? Allopurinol: 100 mg, 1 tablet, By Mouth, Daily, 60 tablet, 0 ? Refill(s). ?? FH: reviewed and non-contributory ?? Social: reviewed ? Review of Systems Const: no fever, no chills HEENT: no dizziness, no headaches, no vision changes Resp: no SOB, no wheezing, no cough CV: no chest pain, no palpitations, no edema, no orthopnea, no syncope GI: no abdominal pain, no n/v, no diarrhea, no constipation, no melena, no hematochezia : no dysuria, no hematuria MSK: no myalgias, no DROM, no back pain Neuro: no paresthesias, no focal weakness?? Skin: no rashes Heme: No easy bruising, no bleeding or clotting tendency ?? 01/16 systems were reviewed and were negative for any positive or negative complain, except as mentioned above. ?? Objective Vital Signs (last 24 hrs) ?Last Charted Heart Rate Peripheral?73 bpm ??(OCT 06 13:41) Resp Rate?16 br/min ??(OCT 06 13:41) SBP?H??153mm Hg ??(OCT 06 13:41) DBP?65 mm Hg ??(OCT 06 13:41) SpO2?98 % ??(OCT 06 13:41) No qualifying data available. ?? Intake/Output? No Data Available ?? Physical Exam General: ??NAD, AAOx4 Cardio: normal S1 snd S2, no MRG, RRR Resp: CTAB Abdo: NT, ND, Extremities: No peripheral edema, Skin: No rashes or other abnormalities Neuro: Grossly intact Dialysis Access: RUE fistula ?? BLOOD COUNT & DIFF WBC 7.1 k/mm3 ()?? 10/06/2022 11:55 RBC 2.72 m/mm3 (Low)?? 10/06/2022 11:55 Hgb 9.3 Gm/dL (Low)?? 10/06/2022 11:55 Hct 28.1 % (Low)?? 10/06/2022 11:55 MCV 103.3 femtoliters (High)?? 10/06/2022 11:55 MCH 34.2 pg (High)?? 10/06/2022 11:55 MCHC 33.1 g/dL ()?? 10/06/2022 11:55 Platelet Count 121 k/mm3 (Low)?? 10/06/2022 11:55 RDW-SD 53.1 femtoliters (High)?? 10/06/2022 11:55 MPV 10.1 femtoliters ()?? 10/06/2022 11:55 Nucleated RBC (Automated) 0.0 #/100 WBC'S ()?? 10/06/2022 11:55 Abs. NRBC 0.0 k/mm3 ()?? 10/06/2022 11:55 Abs. Neut 5.1 k/mm3 ()?? 10/06/2022 11:55 Abs. Lymph 1.0 k/mm3 ()?? 10/06/2022 11:55 Abs. [place] 0.7 k/mm3 ()?? 10/06/2022 11:55 Abs. Eo 0.2 k/mm3 ()?? 10/06/2022 11:55 Abs. Baso 0.1 k/mm3 ()?? 10/06/2022 11:55 Neut % 71.5 % ()?? 10/06/2022 11:55 Lymph % 14.2 % (Low)?? 10/06/2022 11:55 [place] % 10.2 % ()?? 10/06/2022 11:55 Eos % 2.4 % ()?? 10/06/2022 11:55 Baso % 0.7 % ()?? 10/06/2022 11:55 Imm Gran 1.0 % ()?? 10/06/2022 11:55 Abs. Imm Gran 0.1 k/mm3 ()?? 10/06/2022 11:55 ?? CHEM GENERAL Sodium 139 mmol/L ()?? 10/06/2022 11:55 Potassium 4.3 mmol/L ()?? 10/06/2022 11:55 Chloride 95 mmol/L (Low)?? 10/06/2022 11:55 Bicarbonate Level 31 mmol/L (High)?? 10/06/2022 11:55 Anion Gap 13 ()?? 10/06/2022 11:55 Glucose Level 98 mg/dL ()?? 10/06/2022 11:55 BUN 36 mg/dL (High)?? 10/06/2022 11:55 Creatinine-Blood 6.8 mg/dL (High)?? 10/06/2022 11:55 Estimated GFR Creatinine 8 ML/MIN/1.73 M2 ()?? 10/06/2022 11:55 Calcium 9.6 mg/dL ()?? 10/06/2022 11:55 ?? HEME OTHER Hold Blue Top SPECIMEN DISCARDED AFTER 4 HOURS. ()?? 10/06/2022 11:55 ?? MISC. CHEMISTRY Hold Green Top SPECIMEN DISCARDED AFTER 1 WEEK ()?? 10/06/2022 11:55 Hold Gel Top SPECIMEN DISCARDED AFTER 1 WEEK ()?? 10/06/2022 11:55 Hold Gel Top 2 SPECIMEN DISCARDED AFTER 1 WEEK ()?? 10/06/2022 11:55 ?? VIROLOGY COVID-19 by RT-PCR NEGATIVE ()?? 10/06/2022 10:40 ?? No qualifying data available ? Assessment/Plan ?? 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 ESRD on HD MWF @ [place] FSGS HTN Accesss: AVF RUE LE ulcers- partially healed LE pain ? Patient has longstanding lower extremity pain that has led to discontinuation of his hemodialysis session today and prompting admission to the ED for opioids. He is hoping that he will receive more opioids for home so that he can continue his hemodialysis session.?? He was recently seen by vascularwith no intervention however reports that her ultrasound needs to be done later in October.? Recommendations ?? -We will continue hemodialysis as per schedule MWF?? via AVF RUE -There is no indication for urgent hemodialysis Rx for hemodialysis session tomorrow -We will continue home antihypertensives : Amlodipine 10 mg, metoprolol 50, hydralazine -Anemia of chronic disease continue Velphoro - can discuss with vascular team if any inpatient intervention is needed, i doubt it - pain management as per primary ?? Discussed with Dr Steven ?? Thank you for allowing us to participate in care of this patient. Renal team will continue to follow. Please do not hesitate to contact with any questions/concerns should they arise. ?? Patricai Cash MD Nephrology??fellow PGY-4 ?? Available by [facility]?? Please note that this document was generated with the assistance of??ISMA[employer]?voice recognition technology, and may contain vocabulary/syntax errors.?Please do not hesitate to contact me in case of any questions or concerns. ? Note * Navya BELTRAN, Kay: PERFORM Event Display: Discharge/Transfer Note Hospital Authored Date: [id number] Patient: ??MINAL COTTRELL ? Age:??62 Years?Sex:??Male?:??1960?? Patient Information Discharge Location: [facility] Primary Care Physician: Leo Saavedra MD Admit Date/Time: 10/06/22 09:33 Discharge Disposition Discharge Disposition: Home: No Services Discharge Diagnosis Leg pain (M79.606) Intractable pain (R52) Leg pain (M79.606) _ Discharge Medications Acetaminophen (acetaminophen 325 mg oral tablet)?650?Milligram?By Mouth?Every 4 hours?as needed?for 5?Days?Temperature Greater than 100.5not to exceed 4000 mg/day?Pain , Mild Amlodipine (amLODIPine 10 mg oral tablet)?1?tab(s)?10?Milligram?By Mouth?Daily Aspirin (aspirin 81 mg oral delayed release tablet)?81?Milligram?1?tablet?By Mouth?Daily Cholecalciferol (Vitamin D3 1000 intl units oral tablet)?1?tab(s)?1,000?International Unit?By Mouth?Daily Docusate (docusate sodium 100 mg oral capsule)?1?capsule?100?Milligram?By Mouth?2times a day?as needed?as needed for constipation Duloxetine (duloxetine 30 mg oral enteric coated capsule)?1?capsule?30?Milligram?By Mouth?Daily Epoetin Joshua?1?Milliliter?20,000?unit(s)?Subcutaneous Injection?Every Sunday, Sunday and Sunday hydrALAZINE (hydrALAZINE 50 mg oral tablet)?1?tab(s)?50?Milligram?By Mouth?3 times a day Levothyroxine (levothyroxine 125 mcg (0.125 mg) oral tablet)?1?tab(s)?0.125?Milligram?By Mouth?Daily Loratadine (loratadine 10 mg oral tablet)?10?Milligram?1?tablet?By Mouth?Daily Metoprolol (metoprolol succinate 25 mg oral capsule, extended release)?2?capsule?50?Milligram?By Mouth?Daily [place]-3 Polyunsaturated Fatty Acids (Fish Oil 1000 mg oral capsule)?2?capsule?2,000?Milligram?By Mouth?Daily Oxycodone (oxyCODONE 5 mg oral tablet)?5?Milligram?By Mouth?Every 6 hours?as needed?for 5?Days?Pain , Moderate Polyethylene Glycol 3350 (polyethylene glycol 3350 oral powder for reconstitution)?17?gram?By Mouth?Daily?as needed?Constipation?for 15?Days?dissolve in water before taking Sevelamer (sevelamer carbonate 800 mg oral tablet)?2?tab(s)?1,600?Milligram?By Mouth?3 times a day ?? Medications Started Acetaminophen (acetaminophen 325 mg oral tablet)?650?Milligram?By Mouth?Every 4 hours?as needed?for 5?Days?Temperature Greater than 100.5not to exceed 4000 mg/day?Pain , Mild Oxycodone (oxyCODONE 5 mg oral tablet)?5?Milligram?By Mouth?Every 6 hours?as needed?for 5?Days?Pain , Moderate Polyethylene Glycol 3350 (polyethylene glycol 3350 oral powder for reconstitution)?17?gram?By Mouth?Daily?as needed?Constipation?for 15?Days?dissolve in water before taking Medications Discontinued None Doses Changed None PCP Follow-Up/Heads-Up Patient came with significant lower extremity pain. ??Started on acetaminophen and??oxycodone. ??Patient is to follow-up with Dr. Copeland and pain clinic. ??He will also benefit from wound care??evaluation as outpatient. Future Appointments Sunday 1:00 PM EDT ?? Where: [facility] [address] [address]- Status: Pending Sunday 2:30 PM EDT ?? With: Xiomara Dave NP Where: [facility] [address] [place] [id number]- Status: Pending Objective ??62-year-old male with?? medical history of morbid obesity, CAD, s/p x3 CABG (May 2019), KOLE???on CPAP, ESRD???on hemodialysis Sunday/Sunday/Sunday, essential hypertension, hyperlipidemia, gout, hypothyroidism, chronic bilateral lower extremity pain due to known atherosclerosis of bypass graft with resting pain/claudication???follows with Dr. Perez for vascular surgery services at [facility].?? Last visit was 3 days??prior to ED arrival. ? Longstanding history of bilateral lower extremity pain, suspect due to known atherosclerotic disease of both legs Previously was prescribed Percocet by his PCPs, something likely happened and patient was referred to pain specialist, 10/02.?? Was subsequently sent to Dr. Perez, who saw him on 10/03 for initial visit with plan for another visit in approximately 1 mo for US..? Good pain control with Tylenol and Oxycodone for now. Please continue meds as outpatient and adjust as needed. Pt will follow up with Dr. Perez and pain management as outpatient. ? ESRD???change in HD Sunday/Sunday/Sunday Missed Sunday hemodialysis session, only partially completed Sunday hemodialysis session Continue meds and HD as scheduled. ?? Acute on chronic a macrocytic anemia, anemia of chronic disease Pt has Hgb of??9.7 from 13 in the??past No bleeding noticed. Remained stable during??hospital stay Outpatient follow up.? CAD s/p CABG Continue low-dose ASA, metoprolol, omega 3 supplementation ?? Essential hypertension Resume hydralazine, metoprolol ?? Hypothyroidism Continue levothyroxine 0.125mg QD ?? Leg ulceration-- present on admission Uses cream provided by??his PCP Outpatient wound care follow up. ? Measurements?? Height: 175 cm (10/07/22) Weight: 106.4 kg (10/06/22) Dry Weight: 106.4 kg (10/06/22) Body Mass Index:??34.74 kg/m2??Critical (10/06/22) ? Vital Signs?? Temperature: 98.2 DegF (10/07/22 13:56:00) Temperature Route: Oral (10/07/22 13:56:00) Pulse Rate: 71 bpm (10/07/22 13:56:00) Respiratory Rate: 18 br/min (10/07/22 13:56:00) Systolic Blood Pressure: 129 mm Hg (10/07/22 13:56:00) Diastolic Blood Pressure: 77 mm Hg (10/07/22 13:56:00) Blood pressure sites: Arm, left (10/07/22 13:56:00) Mean Arterial Pressure: 94 mm Hg (10/07/22 13:56:00) Pulse Pressure: 52 mm Hg (10/07/22 13:56:00) Oxygen Saturation: 98 % (10/07/22 13:56:00) Mode of Delivery (Oxygen): Room air (10/07/22 13:56:00) Early Warning Score: 3 (10/07/22 13:56:58) ? . Physical Exam GEN:??Lying on the bed, not in any apparent distress CV: Regular rate and rhythm. S1 and S2 normal . No murmurs PULM: ??BS clear to auscultation BL. ABD: Soft. Nontender. Non-distended. Normal bowel sounds present x4 quadrants EXT: No lower extremity edema or asymmetry.?? No hair on the distal aspects of both lower extremity.?? Some healed scabs, without??cellulitic??changes on both shins.?? Mild??abrasions noticed on the front of the nugent area. ??No signs of infection. NEURO: No gross neurologic focal deficits. PSYCH: AOx3.Patient is calm and pleasant.?? Pending Results Blood Culture ordered on 10/06/2022 Patient Education Titles Depression: Tips to Help Yourself?? Depression?? Follow-Up Appointments Added Follow Up ?Time Frame ?Comments Leo Saavedra MD?1 to 2 weeks Patient Instructions During this hospitalization you were??treated for: Significant leg pain Lower extremity wound Atherosclerosis of bypass graft of both legs with rest pain ? You will go home with the following NEW medications: Acetaminophen (acetaminophen 325 mg oral tablet)?650?Milligram?By Mouth?Every 4 hours?as needed?for 5?Days?Temperature Greater than 100.5not to exceed 4000 mg/day?Pain , Mild Oxycodone (oxyCODONE 5 mg oral tablet)?5?Milligram?By Mouth?Every 6 hours?as needed?for 5?Days?Pain , Moderate Polyethylene Glycol 3350 (polyethylene glycol 3350 oral powder for reconstitution)?17?gram?By Mouth?Daily?as needed?Constipation?for 15?Days?dissolve in water before taking ? The following medications were CHANGED : None ? The following medications were?? STOPPED: None ? Activity changes: -?As tolerated. ? Who to follow up with after being discharged from the hospital: -??Please follow up at your primary??care doctor's office in 1-2 weeks. Please make appointment with the clinic. - Please follow up with??Dr. Perez??as outpatient. Please call office to schedule appointment. - You can use current wound treatment provided by your primary care provider.?? You will benefit from visiting ??wound care clinic as outpatient, your primary?? care doctor needs to make the arrangement. ?? Reasons to immediately return to the emergency room or call 911: - You pass out or faint. - You have any other concerns that you think require emergency management. Post Discharge Care Diet: Renal diet Discharge ?10/07/22 15:01:00 EDT Discharge Prescriptions ?ePrescribed, ??10/07/22 15:01:00 EDT Home Health Face to Face ^HomeHealth[facility]F Results Discharge Labs BLOOD COUNT & DIFF WBC 7.0 k/mm3 ()?? 10/07/2022 00:19 RBC 2.93 m/mm3 (Low)?? 10/07/2022 00:19 Hgb 9.7 Gm/dL (Low)?? 10/07/2022 00:19 Hct 30.5 % (Low)?? 10/07/2022 00:19 MCV 104.1 femtoliters (High)?? 10/07/2022 00:19 MCH 33.1 pg ()?? 10/07/2022 00:19 MCHC 31.8 g/dL (Low)?? 10/07/2022 00:19 Platelet Count 116 k/mm3 (Low)?? 10/07/2022 00:19 RDW-SD 54.3 femtoliters (High)?? 10/07/2022 00:19 MPV 10.8 femtoliters ()?? 10/07/2022 00:19 Nucleated RBC (Automated) 0.0 #/100 WBC'S ()?? 10/07/2022 00:19 Abs. NRBC 0.0 k/mm3 ()?? 10/07/2022 00:19 Abs. Neut 5.1 k/mm3 ()?? 10/06/2022 11:55 Abs. Lymph 1.0 k/mm3 ()?? 10/06/2022 11:55 Abs. [place] 0.7 k/mm3 ()?? 10/06/2022 11:55 Abs. Eo 0.2 k/mm3 ()?? 10/06/2022 11:55 Abs. Baso 0.1 k/mm3 ()?? 10/06/2022 11:55 Neut % 71.5 % ()?? 10/06/2022 11:55 Lymph % 14.2 % (Low)?? 10/06/2022 11:55 [place] % 10.2 % ()?? 10/06/2022 11:55 Eos % 2.4 % ()?? 10/06/2022 11:55 Baso % 0.7 % ()?? 10/06/2022 11:55 Imm Gran 1.0 % ()?? 10/06/2022 11:55 Abs. Imm Gran 0.1 k/mm3 ()?? 10/06/2022 11:55 ?? CHEM GENERAL Sodium 137 mmol/L ()?? 10/07/2022 00:19 Potassium 4.6 mmol/L ()?? 10/07/2022 00:19 Chloride 95 mmol/L (Low)?? 10/07/2022 00:19 Bicarbonate Level 28 mmol/L ()?? 10/07/2022 00:19 Anion Gap 14 ()?? 10/07/2022 00:19 Glucose Level 94 mg/dL ()?? 10/07/2022 00:19 BUN 41 mg/dL (High)?? 10/07/2022 00:19 Creatinine-Blood 7.4 mg/dL (High)?? 10/07/2022 00:19 Estimated GFR Creatinine 8 ML/MIN/1.73 M2 ()?? 10/07/2022 00:19 Calcium 9.4 mg/dL ()?? 10/07/2022 00:19 Magnesium 2.2 mg/dL ()?? 10/07/2022 00:19 ? HEME OTHER Hold Blue Top SPECIMEN DISCARDED AFTER 4 HOURS. ()?? 10/06/2022 11:55 ? MISC. CHEMISTRY Hold Green Top SPECIMEN DISCARDED AFTER 1 WEEK ()?? 10/06/2022 11:55 Hold Gel Top SPECIMEN DISCARDED AFTER 1 WEEK ()?? 10/06/2022 11:55 Hold Gel Top 2 SPECIMEN DISCARDED AFTER 1 WEEK ()?? 10/06/2022 11:55 ? URINE OTHER Est Creatinine Clearance 10.05 mL/min ()?? 10/07/2022 02:47 ? VIROLOGY COVID-19 by RT-PCR NEGATIVE ()?? 10/06/2022 10:40 ? Microbiology ?? COVID-19 (Novel Coronavirus), Rapid PCR?? Completed?? Source: Nasal Body Site: Nose Collected Dt/Tm: 10/06/2022 09:55 Last Updated Dt/Tm: 10/06/2022 11:45 ? Imaging(s) ?Chest 2 Views Frontal and Lat ?? 10/06/2022 10:29??by Trae Faulkner MD ?IMPRESSION: ?? Trace bilateral pleural effusions, decreased since previously. No acute abnormality.. ? 35 minutes spent on discharge * Esteban RENDON , Shi Ross: PERFORM, MODIFY Event Display: Patient Education/Instruction Authored Date: Inpatient Adult Discharge Instructions [address] [address] Name: MINAL COTTRELL : 1960 Visit: 10/06/2022 09:33:00 Current Date: 10/07/2022 15:28 Account: [id number] Inpatient Adult Discharge Instructions We would like to thank you for allowing us to assist you with your healthcare needs. The following includes patient education materials and information regarding your injury/illness. Our entire staffstrives to provide an excellent experience for our patients and their families. PLEASE ENSURE YOU FOLLOW-UP PER THE INSTRUCTIONS BELOW! ?? YOUR OPINION IS IMPORTANT TO US! Please complete the survey you may receive by mail or email. Your feedback will be used to make improvements to the healthcare experiences of our patients and their families. Surveys are administered by [employer]. ?? If further treatment with your primary care physician or another doctor is recommended, it is important for you to keep the appointment. Call your primary care physician or return to the Emergency Department immediately if your condition worsens, fails to improve, or new symptoms develop. If you need to find a doctor, you can call [email or web address] for a referral at [phone] or toll free at [phone]) or log in to [email or web address].. ?? You can view and manage your care through the patient portal or by using a health care tyrone of your choosing. [employer] is a website that allows you to securely view your medical information including your hospital discharge summary, office visit summaries, medications and follow-up visits. You can also request appointments, renew medications, and request access to your medical information using a health care tyrone of your choosing, or just ask a question. You can enroll at [email or web address] or register during your next office visit. You have been discharged from [facility], Patient Care Unit: D3B. If you have any questions regarding these instructions after you leave, please call us and we will be happy to assist you. [facility] Your Care Team Attending Physician Kay Mendosa MD Discharging Providers Kay Mendosa MD Reason for Admission Chronic bilateral leg pain for at least 5 years, was as as needed Percocet prescribed by his PCP. ??Seems medication adjustment happened and patient was longer able to control pain. ??Missed dialysissessions due to inability to walk due to pain. Your Diagnosis Leg pain Intractable pain Leg pain Tests Performed Below is a partial list of the tests performed during your hospitalization. You may have had other tests and procedures not included in this list. Please discuss all test results with your provider. Basic Metabolic Panel CBC CBC w/ Differential COVID-19 (Novel Coronavirus), Rapid PCR HOLD BLUE TUBE HOLD GEL TUBE X2 HOLD GREEN TUBE Magnesium Level XR Chest 2 Views Frontal and Lat Primary Care Provider Keri BELTRAN, Leo Moy Advance Directive Health Care Proxy on File Yes - Health Care Proxy Discharge Vitals Temperature: 98.2 DegF Height: 175 cm Pulse Rate: 71 bpm Weight: 106.4 kg Respiratory Rate: 18 br/min Body Mass Index:??34.74 kg/m2??Critical Systolic Blood Pressure: 129 mm Hg Body surface area: 2.27 Diastolic Blood Pressure: 77 mm Hg ?? Oxygen Saturation: 98 % ?? Studies Pending All tests and labs ordered during this hospital stay have been completed unless listed below. Please discuss all pending results with your provider listed above in these instructions. ?? Blood Culture What to do next Instructions From Your Doctor During this hospitalization you were??treated for: Significant leg pain Lower extremity wound Atherosclerosis of bypass graft of both legs with rest pain ? You will go home with the following NEW medications: Acetaminophen (acetaminophen 325 mg oral tablet)?650?Milligram?By Mouth?Every 4 hours?as needed?for 5?Days?Temperature Greater than 100.5not to exceed 4000 mg/day?Pain , Mild Oxycodone (oxyCODONE 5 mg oral tablet)?5?Milligram?By Mouth?Every 6 hours?as needed?for 5?Days?Pain , Moderate Polyethylene Glycol 3350 (polyethylene glycol 3350 oral powder for reconstitution)?17?gram?By Mouth?Daily?as needed?Constipation?for 15?Days?dissolve in water before taking ? The following medications were CHANGED : None ? The following medications were?? STOPPED: None ? Activity changes: -?As tolerated. ? Who to follow up with after being discharged from the hospital: -??Please follow up at your primary??care doctor's office in 1-2 weeks. Please make appointment with the clinic. - Please follow up with??Dr. Perez??as outpatient. Please call office to schedule appointment. - You can use current wound treatment provided by your primary care provider.?? You will benefit from visiting ??wound care clinic as outpatient, your primary?? care doctor needs to make the arrangement. ?? Reasons to immediately return to the emergency room or call 911: - You pass out or faint. - You have any other concerns that you think require emergency management. Discharge Orders Diet:??Renal diet Scheduled Follow-Up Appointments Sunday 1:00 PM EDT ?? Where: [facility] [address] [place] [id number]- Status: Pending Sunday 2:30 PM EDT ?? With: Tenzin CASEY, Xiomara Peña Where: [facility] [address] [address]- Status: Pending You Need to Schedule the Following Appointments Follow Up with??Keri BELTRAN, Leo Moy When:??Within 1 to 2 weeks Where: [address] [place] [address] [address] [place] [address]- Discharge Medications SIMBA MINAL :1960 Visit Date:10/06/2022 Medications: Please continue your medications until treatment is completed or stopped by your provider. Medications not listed below should be discontinued. Discuss any questions related to medications with your provider. What How Much When Instructions Next Dose New Acetaminophen (acetaminophen 325 mg oral tablet) 650 Milligram Oral Every 4 hours as needed for Pain , Mild Duration: 5 Days Temperature Greater than 100.5 not to exceed 4000 mg/ day ?? Pickup at [facility] 3 take as directed New Oxycodone (oxyCODONE 5 mg oral tablet) 5 Milligram Oral Every 6 hours as needed for Pain , Moderate Duration: 5 Days Pickup at [facility] 3 next due 730pm New Polyethylene Glycol 3350 (polyethylene glycol 3350 oral powder for reconstitution) 17 gram Oral Daily as needed for Constipation Duration: 15 Days dissolve in water before taking ?? Pickup at [facility] 3 take as directed Unchanged Amlodipine (amLODIPine 10 mg oral tablet) 1 tab(s) Oral Daily take tomorrow morning Unchanged Aspirin (aspirin 81 mg oral delayed release tablet) 1 tab(s) Oral Daily take tomorrow morning Unchanged Cholecalciferol (Vitamin D3 1000 intl units oral tablet) 1 tab(s) Oral Daily take as directed Unchanged Docusate (docusate sodium 100 mg oral capsule) 1 capsule Oral Twice a day as needed for as needed for constipation take as directed Unchanged Duloxetine (duloxetine 30 mg oral enteric coated capsule) 1 capsule Oral Daily take tomorrow morning Unchanged Epoetin Joshua 20,000 unit(s) Subcutaneous Injection Sunday, Sunday and Sunday take as directed Unchanged hydrALAZINE (hydrALAZINE 50 mg oral tablet) 1 tab(s) Oral 3 times a day take at 9pm tonight Unchanged Levothyroxine (levothyroxine 125 mcg (0.125 mg) oral tablet) 1 tab(s) Oral Daily take tomorrow morning Unchanged Loratadine (loratadine 10 mg oral tablet) 1 tab(s) Oral Daily take tomorrow morning Unchanged Metoprolol (metoprolol succinate 25 mg oral capsule, extended release) 2 capsule Oral Daily take tomorrow morning Unchanged [place]-3 Polyunsaturated Fatty Acids (Fish Oil 1000 mg oral capsule) 2 capsule Oral Daily take as directed Unchanged Sevelamer (sevelamer carbonate 800 mg oral tablet) 2 tab(s) Oral 3 times a day take with dinner Pharmacy Information [facility] 3: [address], [place] [id number] [phone] Test Results Below is a partial list of the most recent Laboratory test results done prior to this discharge. You may have had other tests and procedures not included in this list. Please discuss all test resultswith your provider. Est Creatinine Clearance - 10.05 mL/min (10/07/2022) Basic Metabolic Panel (10/07/2022) ???Sodium - 137 mmol/L???Potassium - 4.6 mmol/L???Chloride - 95 mmol/L???Bicarbonate Level - 28 mmol/L???Anion Gap - 14???Glucose Level - 94 mg/dL???BUN - 41 mg/dL???Creatinine-Blood - 7.4 mg/dL???Estimated GFR Creatinine - 8 ML/MIN/1.73 M2???Calcium - 9.4 mg/dL CBC (10/07/2022) ???WBC - 7.0 k/mm3???RBC - 2.93 m/mm3???Hgb - 9.7 Gm/dL???Hct - 30.5 %???MCV - 104.1 femtoliters???MCH - 33.1 pg???MCHC - 31.8 g/dL???Platelet Count - 116 k/mm3???RDW-SD - 54.3 femtoliters???MPV - 10.8 femtoliters???Nucleated RBC (Automated) - 0.0 #/100 WBC'S???Abs. NRBC - 0.0 k/mm3 CBC w/ Differential (10/06/2022) ???WBC - 7.1 k/mm3???RBC - 2.72 m/mm3???Hgb - 9.3 Gm/dL???Hct - 28.1 %???MCV - 103.3 femtoliters???MCH - 34.2 pg???MCHC - 33.1 g/dL???Platelet Count - 121 k/mm3???RDW-SD - 53.1 femtoliters???MPV - 10.1 femtoliters???Nucleated RBC (Automated) - 0.0 #/100 WBC'S???Abs. NRBC - 0.0 k/mm3???Abs. Neut - 5.1 k/mm3???Abs. Lymph - 1.0 k/mm3???Abs. [place] - 0.7 k/mm3???Abs. Eo - 0.2 k/mm3???Abs. Baso - 0.1 k/mm3???Neut % - 71.5 %???Lymph % - 14.2 %???[place] % - 10.2 %???Eos % - 2.4 %???Baso % - 0.7 %???Imm Gran - 1.0 %???Abs. Imm Gran - 0.1 k/mm3 COVID-19 (Novel Coronavirus), Rapid PCR (10/06/2022) ???COVID-19 by RT-PCR - NEGATIVE HOLD BLUE TUBE (10/06/2022) ???Hold Blue Top - SPECIMEN DISCARDED AFTER 4 HOURS. HOLD GEL TUBE X2 (10/06/2022) ???Hold Gel Top - SPECIMEN DISCARDED AFTER 1 WEEK???Hold Gel Top 2 - SPECIMEN DISCARDED AFTER 1 WEEK HOLD GREEN TUBE (10/06/2022) ???Hold Green Top - SPECIMEN DISCARDED AFTER 1 WEEK Magnesium Level (10/07/2022) ???Magnesium - 2.2 mg/dL Allergies (NKA means No Known Allergies) Ambien??(Prednisone) Problems Active Problems??(13) Anemia?? Arthroscopy of knee?? CAD (coronary artery disease)?? Chronic renal impairment?? CKD stage 3?? Edema?? Gout?? H/O: obesity?? Heart failure with preserved ejection fraction?? Hypertension?? Hypothyroidism?? Obese class I?? Sleep apnea?? Education Materials Below is the list of Educational Leaflet Providered with your Discharge Instructions. Oxycodone Oral Tablet?? Measuring Your Pain?? Depression: Tips to Help Yourself?? Depression?? Valuables and Belongings I fully understand and agree that [facility] accepts no responsibility for all my personal property including clothing, toilet articles, radios, jewelry, dentures, hearing aids, rings, money, or any other property that is in my possession or is brought to me after admission. I understand certain valuables may be placed in a hospital safe for a short period of time. I understand that the hospital is not liable for loss or damage due to accident, fire, or other natural occurrence while said property is in the safe. I accept full responsibility for any personal property that I keep with me, and will not hold the hospital responsible in case of loss or disappearance. I acknowledge that i have been encouraged to send valuables and belongings home. ?? No Valuables/Belongings: No valuables/belongings present Review of Valuable and Belonging List: With patient Date for Pt to Sign Valuables/Belongings: 10/06/22 16:41:00 ?? Other Discharge Information ? Pulmonary Rehab Status?? Pulmonary Rehab Discharge Status?? Respiratory Rate: 18 br/min ? Common Emergency Awareness Tips IS IT A STROKE? Act FAST and Check for these signs: FACE Does the face look uneven? ARM Does one arm drift down? SPEECH Does their speech sound strange? TIME Call at any sign of stroke ?? Heart Attack Signs Chest discomfort: Most heart attacks involve discomfort in the center of the chest and lasts more than a few minutes, or goes away and comes back. It can feel like uncomfortable pressure, squeezing, fullness or pain. Discomfort in upper body: Symptoms can include pain or discomfort in one or both arms, back, neck, jaw or stomach. Shortness of breath: With or without discomfort. Other signs: Breaking out in a cold sweat, nausea, or lightheaded. Remember, MINUTES DO MATTER. If you experience any of these heart attack warning signs, call to get immediate medical attention! ?? Smoking can increase your chances of developing chronic health problems and can cause harmful effects to other family members in your house. If you smoke, you are strongly encouraged to quit. Please call [facility] at [phone] or [phone] or log in to [email or web address][email or web address] for referrals to smoking cessation programs. ?? 558 Suicide & Crisis Lifeline is available 30/10 if you or someone you know needs to find a reason to keep living. By calling 021 you'll be connected to a skilled, trained counselor at a crisis center in your area. INPATIENT DISCHARGE INSTRUCTIONS SIGNATURE PAGE MINAL COTTRELL Location:[facility] Registration Date and Time:10/06/2022 09:33 EDT Primary Care Physician: Keri BELTRAN, Leo Moy, Attending Physician: Navya BELTRAN, Kay, I MINAL COTTRELL, have received the above patient education materials/instructions and have verbalized understanding. If ambulance or transport services are being used I further acknowledge being given a choice of service. ?? If you need to contact me, please call me at this number: . Patient/Bank Cashier Name: Patient/Bank Cashier Signature: Relationship to Patient: Witness Name/Signature: Date: * Esteban RENDON , Shi Lujan.: PERFORM Event Display: Patient Education Leaflets Authored Date: [id number] Oxycodone Oral Tablet ?? [id number] Oxycodone Oral Tablet Brands: Roxicodone Uses For pain. ?? Instructions This medicine may be taken with or without food. Swallow with a full glass (8 oz) of water unless your doctor gives you different instructions. Store at room temperature away from heat, light, and moisture. Do not keep in the bathroom. Please ask your doctor, nurse, or pharmacist how to discard unused medicines safely. To reduce constipation, eat high fiber foods, drink plenty of water and exercise. Avoid grapefruit juice while on this medicine. Drug interactions can change how medicines work or increase risk for side effects. Tell your healthcare providers about all medicines taken. Include prescription and vxiy-wnn-yguqlco medicines, vitamins, and herbal medicines. Speak with your doctor or pharmacist before starting or stopping any medicine. Tell your doctor if symptoms do not get better or if they get worse. ?? Cautions This medicine has an opioid. Opioids help many people but may cause addiction, especially if used for a long time. The addiction risk is higher if you have a substance use disorder (overuse of or addiction to drugs or alcohol). Ask your doctor about the benefits and risks. Ask your doctor or pharmacist if you should have naloxone on hand to treat opioid overdose. Teach your family or household members about the signs of an opioid overdose and how to treat it. If you stop this medicine suddenly after using it for a long time, you may have withdrawal. Your doctor may slowly lower your dose before stopping it. Tell your doctor right away if you have symptoms, such as unusual sweating, watering eyes, runny nose, chills, diarrhea, yawning, muscle aches, restlessness, anxiety, trouble sleeping, or thoughts of suicide. Tell your doctor and pharmacist if you ever had an allergic reaction to a medicine. Do not use the medication any more than instructed. This medicine may cause dizziness or fainting, especially after exercising or in hot weather. Be very careful when standing or sitting up quickly. If possible, avoid using with alcohol, marijuana, or other medicines that can cause dizziness or drowsiness. These include allergy/cold products, muscle relaxers, sleep aids, and pain relievers. Your ability to stay alert or to react quickly may be impaired by this medicine. Do not drive or operate machinery until you know how this medicine will affect you. This medicine passes into breast milk. Ask your doctor before . This medicine can hurt a new baby in the womb. If you become while on this medicine, tell your doctor immediately. Your doctor may switch you to a different medicine. This medicine should be used with caution in patients with breathing difficulties. Call your doctor right away if you notice slow or shallow breathing. Do not share this medicine with anyone who has not been prescribed this medicine. Some patients have serious side effects from this medicine. Ask your pharmacist to show you the information from the Food and Drug Administration (FDA) and discuss it with you. ?? Side Effects The following is a list of some common side effects from this medicine. Please speak with your doctor about what you should do if you experience these or other side effects. ??? decreased appetite ??? constipation ??? dizziness or drowsiness ??? lightheadedness ??? nausea and vomiting If you have any of the following side effects, you may be getting too much medicine. Please contactyour doctor to let them know about these side effects. ??? confusion ??? fainting ??? unusual or unexplained tiredness or weakness ??? difficulty or discomfort urinating Call your doctor or get medical help right away if you notice any of these more serious side effects: ??? agitated feeling or trouble sleeping ??? decreased awareness or responsiveness ??? breathing interruption during sleep ??? shallow, irregular breathing ??? hallucinations (unusual thoughts, seeing or hearing things that are not real) ??? seizures ??? severe stomach or bowel pain ??? weight loss A few people may have an allergic reaction to this medicine. Symptoms can include difficulty breathing, skin rash, itching, swelling, or severe dizziness. If you notice any of these symptoms, seek medical help quickly. ?? Extra Please speak with your doctor, nurse, or pharmacist if you have any questions about this medicine. ?? [email or web address] IMPORTANT NOTE: This document tells you briefly how to take your medicine, but it does not tell youall there is to know about it. Your doctor or pharmacist may give you other documents about your medicine. Please talk to them if you have any questions. Always follow their advice. There is a more complete description of this medicine available in [place]. Scan this code on your smartphone or tablet or use the web address below. You can also ask your pharmacist for a printout. If you have any questions, please ask your pharmacist. The display and use of this drug information is subject to Terms of Use. Copyright(c) 2022 [employer]. ?? [employer]. All rights reserved. This information is not intended as a substitute for professional medical care. Always follow your healthcare professional's instructions. ?? * Esteban RENDON , Shi Ross: PERFORM Event Display: Patient Education Leaflets Authored Date: [id number] Measuring Your Pain ?? 97374 Measuring Your Pain A pain scale helps you rate pain intensity. In the scale, 0 means no pain, and 10 is the worst painpossible. Pain scales are not used to compare your pain with another person's pain. A pain scale isused only to measure how your pain changes for you.??You should rate your??pain every few hours. You may feel some pain even with medicines.??It's important to??tell your healthcare provider if medici lyle don't reduce the pain. Be sure to mention if the pain suddenly increases or changes. Keep track of your pain each day. You might copy the pain journal on this page or use a small notebook. Show the journal to your healthcare provider. Last Reviewed Date: 2021 ?? [employer]. All rights reserved. This information is not intended as a substitute for professional medical care. Always follow your healthcare professional's instructions. ?? * Erin Middleton RN: PERFORM Event Display: Patient Education Leaflets Authored Date: [id number] Depression: Tips to Help Yourself ?? 22739 Depression: Tips to Help Yourself As your healthcare providers help treat your depression, you can also help yourself. Keep in mind that your illness affects you emotionally, physically, mentally, and socially. So full recovery will take time. Take care of your body and your soul, and be patient with yourself as you get better. Self-care ??? Educate yourself. Read about treatment and medicine options. If you have the energy, attend local conferences or support groups. Keep a list of useful websites and helpful books and usethem as needed. This illness is not your fault. Don???t blame yourself for your depression. ??? Manage early symptoms. If you notice symptoms returning, have triggers, or identify other factors that may lead to a depressive episode, get help as soon as possible. Ask trusted friends and family to monitor your behavior and let you know if they see anything of concern. ??? Work with your provider. Find a provider you can trust. Communicate honestly with that person. Share information on your treatment for depression and your reaction to medicines. You may need to try different medicines before finding the right one. ??? Be prepared for a crisis. Know what to do if you have a crisis. Keep the phone number of a crisis hotline handy. Know where your community's urgent care centers and the closest emergency department are. ??? Hold off on big decisions. Depression can cloud your judgment. So wait until you feel better before making major life decisions. These include changing jobs, moving, making an expensive purchase, or getting or . ??? Be patient. Recovering from depression is a process. Don???t be discouraged if it takes some time to feel better. ??? Keep it simple. Depression saps your energy and concentration. So you won???t be able to do all the things you used to do. Set small goals and do what you can. ??? Be with others. Don???t isolate yourself???you???ll only feel worse. Try to be with other people. And take part in fun activities when you can. Go to a movie, ballgame, judaism service, or social event. Talk openly with people you can trust. And accept help when it???s offered. ?? Take care of your body People with depression often lose the desire to take care of themselves. That only makes their problems worse. During treatment and afterward, make a point to: ??? Exercise. It???s a great way to take care of your body. And studies have shown that exercise helps fight depression. Aim for 30 minutesof moderate activity a day. Walking in small blocks of time (5-10 minutes) is a good way to start, but anything that gets you moving (gardening, house cleaning) counts. ??? Not use drugs or alcohol. These may ease the pain in the short term. But they???ll only make your problems worse in the long run. ??? Get relief from stress. Ask your healthcare provider for relaxation exercises and techniquesto help ease stress. Consider activities like meditation, yoga, progressive muscle relaxation, or david chi. ??? Eat right. A balanced and healthy diet helps keep your body healthy. ??? Get adequate sleep. Aim for 8 hours per night. Too much or too little sleep can cause other physical and emotional problems. ?? Last Reviewed Date: 2021 ?? 1057-9683 [employer]. All rights reserved. This information is not intended as a substitute for professional medical care. Always follow your healthcare professional's instructions. ?? Patient Care team information Care Team Personnel Name: Nicole Soria RN Position: [facility] RN Member Role: Primary Care Nurse Name: Nettie Woods RN Position: [facility] ED RN W/OE and Tasks Member Role: Primary Care Nurse Name: Amelia Molina RN Position: [facility] RN Member Role: Primary Care Nurse Name: Tami Morrow RN Position: [facility] RN Member Role: Primary Care Nurse Name: Grabiel Russell RN Position: [facility] RN Member Role: Primary Care Nurse Name: Nika Swift Position: [facility] RN Member Role: Primary Care Nurse Name: Mickey Mercer RN Position: [facility] RN Member Role: Primary Care Nurse Name: Shaina Briscoe RN Position: [facility] AMB Nurse Member Role: Primary Care Nurse Name: Leo Almendarez RN Position: [facility] RN Member Role: Primary Care Nurse Name: Delilah López RN Position: [facility] RN Member Role: Primary Care Nurse Name: Vu Martinez RN Position: [facility] RN Member Role: Primary Care Nurse Name: Salvador Ngo RN Position: [facility] RN Supv Member Role: Primary Care Nurse Name: Toya Valenzuela Position: [facility] RN Member Role: Primary Care Nurse Name: Leo Saavedra MD Position: [facility] General Pediatrics MD Member Role: PCP Address: Address: [address] [place] [address] [address] [place] [address]- Name: Nkechi Worley RN Position: [facility] RN Member Role: Primary Care Nurse Name: Delilah Guadarrama RN Position: [facility] RN Member Role: Primary Care Nurse Name: Thai Quesada MD Position: [facility] Renal MD Member Role: [employer] Consulting Physician Address: Address: [address] [facility] [place] [facility] [address] [facility], [place] [address]- Name: Emmanuel Soriano RN Position: [facility] RN Member Role: Primary Care Nurse Name: Ainsley Galdamez Position: [facility] Associate Professional Member Role: [employer] Consulting Provider Address: Address: [address] [facility] [place] [address]- [place] Name: Nidia Pollock RN Position: [facility] RN Member Role: Primary Care Nurse Name: Naresh Gibbons MD Position: [facility] Physician - Infectious Disease Member Role: Lifetime Consulting Physician Address: Address: [facility] [facility] [place] [address]- [place] Name: Lily Campbell RN Position: [facility] RN Member Role: Primary Care Nurse Name: Veena Mayberry RN Position: [facility] RN Supv Member Role: Primary Care Nurse Name: Yi Paiz RN Position: [facility] RN Member Role: Primary Care Nurse Name: [facility] Attending Position: [facility] ED Medicine MD Name: Harry White Position: [facility] ED TA [facility] Member Role: [employer] Name: Myesha Crandall Position: [facility] ED RN W/OE and Tasks Member Role: Patient Care Provider Name: Carmen Guzman MD Position: [facility] Resident Member Role: ED Resident Address: Address: [address] [place] [address] [place] [address]- Care Team Related Persons Name: BENNIE HERNÁNDEZ Address: home [address] [place] [address] Name: GENO COTTRELL Address: home [address] [address] Name: HEATHER HINOJOSA
--- OUTSIDE RECORDS SUMMARY | 2022-11-29 07:13 | XMS_ITS | Continuity of Care Document ---
Author Name Unknown Organization [facility] Address [address] [place] [address]- Care Team Providers Care Flat Folder Name Role Phone Keri BELTRAN, Leo Moy Primary Care Physician Encounter [facility] Date(s): 11/13/22 - 11/20/22 [facility] [address] [place], [place] [address] Attending Physician: Xiomara Dave NP Admitting Physician: Xiomara Dave NP Allergies, Adverse Reactions, Alerts Substance Reaction Severity Status Ambien Prednisone Active Immunizations Given and Recorded Vaccine Date Status Refusal Reason SARS-CoV-2 (COVID-19) mRNA BNT-162b2 vac 05/31/21 Recorded SARS-CoV-2 (COVID-19) mRNA BNT-162b2 vac 06/23/20 Recorded SARS-CoV-2 (COVID-19) mRNA BNT-162b2 vac 06/01/20 Recorded Medications amLODIPine 10 mg oral tablet 1 tablet [...] drug. Start Date: 08/09/22 Status: Ordered hydrALAZINE 50 mg oral tablet 1 tablet [...] drug. Start Date: 10/06/22 Status: Ordered metoprolol succinate 25 mg oral capsule, extended release 2 capsule = 50 mg, By Mouth, Daily, # 30 capsule, 0 Refills, Maintenance, 06/03/19 11:47:00 EST, ERCapsule Start Date: 06/03/19 Status: Ordered sevelamer carbonate 800 mg oral [...] I Confirmed Active Sleep apnea Confirmed Active Vital Signs Most recent to oldest [Reference Range]: 1 Height 175 cm (11/13/22 2:27 PM) Weight 106.36 kg (11/13/22 2:27 PM) Oxygen Saturation [94-100 %] 98 % (11/13/22 2:27 PM) Pulse Rate [55-90 bpm] 68 bpm (11/13/22 2:27 PM) Body Mass Index [18.5-24.99 kg/m2] 34.73 kg/m2 *>HHI* (11/13/22 2:27 PM) Blood Pressure [90-138/55-84 mm Hg] 142/ 88mm Hg *H* (11/13/22 2:27 PM) Blood pressure sites Arm, left (11/13/22 2:27 PM) Weight Obtained Via Patient/family state d (11/13/22 2:27 PM) Social History Social History Type Response Smoking Status Never (less than 100 in lifetime) entered on: 08/01/22 Sex Note * Rebecca Lee: PERFORM, SIGN, VERIFY Event Display: Patient Education/Instruction Authored Date: [id number] [facility] *[facility] [address] Clinical Summary Name MINAL COTTRELL Age 62 Years 1960 PCP Keri BELTRAN, Leo Moy PCP Visit Date 11/13/2022 13:48:00 Additional Instructions: Scheduled Appointments?? Future Appointments ?*BVS??Lab[address] ?Phone:??--?Fax:??-- ?Appt. Date:??11/16/2022?1:00 PM ?Scheduled Provider:??Ultrasound Room 4 [facility] ?*BVS[address]??[place],??[place],??[address] ?Phone:??--?Fax:??-- ?Appt. Date:??11/30/2022?2:00 PM ?Scheduled Provider:??Cecilia BELTRAN, Juan Jose Warren Follow-Up Instructions ?? With: Address: When: Tenzin CASEY, Xiomara Peña 09/07/2022 12:00 AM Comments: Bilateral venous insufficiency studies??and follow-up with MD who deals with veins Diagnosis Medications: Please continue your medications until treatment is completed or stopped by your provider. Discuss any questions related to medications with your provider. Medications to Continue with No Changes These medications were not printed or sent to your pharmacy Amlodipine (amLODIPine 10 mg oral tablet) 1 tab(s) Oral Daily. Next Dose: Aspirin (aspirin 81 mg oral delayed release tablet) 1 tab(s) Oral Daily. Next Dose: Cholecalciferol (Vitamin D3 1000 intl units oral tablet) 1 tab(s) Oral Daily. Refills: 3. Next Dose: Docusate (docusate sodium 100 mg oral capsule) 1 capsule Oral twice a day as needed as needed for constipation. Next Dose: Duloxetine (duloxetine 30 mg oral enteric coated capsule) 1 capsule Oral Daily. Next Dose: Epoetin Joshua 20,000 unit(s) Subcutaneous Injection Sunday, Sunday and Sunday. Next Dose: hydrALAZINE (hydrALAZINE 50 mg oral tablet) 1 tab(s) Oral 3 times a day. Refills: 0. Next Dose: Levothyroxine (levothyroxine 125 mcg (0.125 mg) oral tablet) 1 tab(s) Oral Daily. Refills: 4. Next Dose: Loratadine (loratadine 10 mg oral tablet) 1 tab(s) Oral Daily. Next Dose: Metoprolol (metoprolol succinate 25 mg oral capsule, extended release) 2 capsule Oral Daily. Next Dose: [place]-3 Polyunsaturated Fatty Acids (Fish Oil 1000 mg oral capsule) 2 capsule Oral Daily. Next Dose: Sevelamer (sevelamer carbonate 800 mg oral tablet) 2 tab(s) Oral 3 times a day. Next Dose: Allergy Info:?? Ambien Medications Given This Visit Future Orders ?VL Venous Dup Scan Venous Insuf LE Bilat? Order Date:11/13/22?- Complete within?4 week(s) Vital Signs Height 175 cm Weight 106.36 kg BMI 34.73 kg/m2 Blood Pressure 142 mm Hg/88 mm Hg Temperature Pulse Rate 68 bpm Respiratory Rate 02 Sat Mode of Delivery 98 %/ You can now view a summary of your hospital visit from the comfort of your home through a free online portal called [employer]. [employer] is a website that allows you to securely view your medical information including discharge summary, medications and follow-up visits. ??You can alsosend a secure electronic message to your doctor???s office to request appointments, renew medications or just ask a question. You can enroll at [email or web address] or register during your next office visit. Disclaimer:?? The information provided is of a general nature and is intended to be used in conjunction with the recommendations and advice of your health care practitioner. ??Every effort has been made to ensure that the information provided is accurate and complete at the time it is provided to you however, as your needs change, or, as new ??information becomes available, different or additional instructions may be required. If you have questions, please consult with your primary care provider or pharmacist, as appropriate. ??This information is not intended to serve as substitution for assessment and evaluation by a qualified health care provider. If you do not have a primary care provider, you may find a [facility] provider by calling [facility] at [phone]. For information about the plan of care including goals and instructions for your diagnosis, please see the patient education orders section of this document. Patient Education Materials?? The content of this educational material or handout may have been modified, supplemented, or adapted from its original content and format to support your individualized medical care. Patient Care team information Care Team Personnel Name: Nicole Soria RN Position: S RN Member Role: Primary Care Nurse Name: Nettie Woods RN Position: [facility] RN W/OE and Tasks Member Role: Primary Care Nurse Name: Amelia Molina RN Position: S RN Member Role: Primary Care Nurse Name: Tami Morrow RN Position: S RN Member Role: Primary Care Nurse Name: Grabiel Russell RN Position: S RN Member Role: Primary Care Nurse Name: Nika Swift Position: [facility] RN Member Role: Primary Care Nurse Name: Mickey Mercer RN Position: [facility] RN Member Role: Primary Care Nurse Name: Shaina Briscoe RN Position: [facility] AMB Nurse Member Role: Primary Care Nurse Name: Leo Almendarez RN Position: [facility] RN Member Role: Primary Care Nurse Name: Delilah López RN Position: [facility] RN Member Role: Primary Care Nurse Name: Vu Martinez RN Position: [facility] RN Member Role: Primary Care Nurse Name: Salvador gNo RN Position: [facility] RN Supv Member Role: Primary Care Nurse Name: Toya Valenzuela Position: [facility] RN Member Role: Primary Care Nurse Name: Leo Saavedra MD Position: [facility] General Pediatrics MD Member Role: PCP Address: Address: [address] [place] [address] [address] [place] [address]- Name: Nkechi Worley RN Position: [facility] RN Member Role: Primary Care Nurse Name: Delilah Guadarrama RN Position: [facility] RN Member Role: Primary Care Nurse Name: Thai Quesada MD Position: [facility] Renal MD Member Role: Lifetime Consulting Physician Address: Address: [address] [facility] [address] [facility], [place] [address]- [place] Name: Emmanuel Soriano RN Position: [facility] RN Member Role: Primary Care Nurse Name: Ainsley Galdamez Position: [facility] Associate Professional Member Role: Lifetime Consulting Provider Address: Address: [address] [facility] [place] [address]- [place] Name: Nidia Pollock RN Position: [facility] RN Member Role: Primary Care Nurse Name: Naresh Gibbons MD Position: [facility] Physician - Infectious Disease Member Role: Lifetime Consulting Physician Address: Address: [address] [facility] [place] [address]- [place] Name: Lily Campbell RN Position: [facility] RN Member Role: Primary Care Nurse Name: Veena Mayberry RN Position: [facility] RN Supv Member Role: Primary Care Nurse Name: Yi Paiz RN Position: [facility] RN Member Role: Primary Care Nurse Care Team Related Persons Name: BENNIE HERNÁNDEZ Address: [address] [place] [address] Name: GENO COTTRELL Address: [address] [address] Name: HEATHER HINOJOSA
--- OUTSIDE RECORDS SUMMARY | 2022-11-29 07:14 | XMS_ITS | Continuity of Care Document ---
Author Name Unknown Organization [facility] Address [address] [place] [address]- Care Team Providers Care Pastoral Counselor Name Role Phone Leo Saavedra MD Primary Care Physician [phone] Encounter [facility] Date(s): 11/16/22 - 11/23/22 [facility] [address] [place], [place] [address] Attending Physician: Philip Perez MD Admitting Physician: Philip Perez MD Referring Physician: Leo Saavedra MD Allergies, Adverse Reactions, Alerts Substance Reaction [...] I Confirmed Active Sleep apnea Confirmed Active Social History Social History Type Response Smoking Status Never (less than 100 in lifetime) entered on: 08/01/22 Sex Note * Rebecca Lee: PERFORM, SIGN, VERIFY Event Display: Patient Education/Instruction Authored Date: [id number] [facility] *[facility] [address] Clinical Summary Name MINAL COTTRELL Age 62 Years 1960 PCP Keri BELTRAN, Leo Moy PCP Visit Date 11/16/2022 12:39:00 Additional Instructions: Scheduled Appointments?? Future Appointments ?*BVS??[address]??[place],??[place],??[address] ?Phone:??--?Fax:??-- ?Appt. Date:??11/30/2022?2:00 PM ?Scheduled Provider:??Cecilia BELTRAN, Juan Jose Warren Follow-Up Instructions ?? Diagnosis Medications: Please continue your medications until [...] release) 2 capsule Oral Daily. Next Dose: [place]-3 Polyunsaturated Fatty Acids (Fish Oil 1000 mg oral capsule) 2 capsule Oral Daily. Next Dose: Sevelamer (sevelamer carbonate 800 mg oral tablet) 2 tab(s) Oral 3 times a day. Next Dose: Allergy Info:?? Ambien Medications Given This Visit Future Orders ?No future orders Vital Signs Height Weight BMI Blood Pressure / Temperature Pulse Rate Respiratory Rate 02 Sat Mode of Delivery / You can now view a summary of your hospital visit from the comfort of your home through a free online portal called [employer]. [employer] is a website that allows you to securely view your medical information including discharge summary, medications and follow-up visits. ??You can alsosend a secure electronic message to your doctor???s office to request appointments, renew medications or just ask a question. You can enroll at [email or web address] or register during your next office visit. [...] primary care provider, you may find a [facility] provider by calling [facility] at [phone]. For information about the plan of care including goals and instructions for your diagnosis, please see the patient education orders section of this document. Patient Education Materials?? The content of this educational material or handout may have been modified, supplemented, or adapted from its original content and format to support your individualized medical care. * Rebecca Lee: PERFORM, SIGN, VERIFY Event Display: Patient Education/Instruction Authored Date: [id number] [facility] *[facility]S [address] Clinical Summary Name MINAL COTTRELL Age 62 Years 1960 PCP Keri BELTRAN, Leo Moy PCP Visit Date 11/16/2022 12:39:00 Additional Instructions: Scheduled Appointments?? Future Appointments ?*BVS??[address]??[place],??[place],??[address] ?Phone:??--?Fax:??-- ?Appt. Date:??11/30/2022?2:00 PM ?Scheduled Provider:??Cecilia BELTRAN, Juan Jose Warren Follow-Up Instructions ?? Diagnosis Medications: Please continue your medications until [...] release) 2 capsule Oral Daily. Next Dose: [place]-3 Polyunsaturated Fatty Acids (Fish Oil 1000 mg oral capsule) 2 capsule Oral Daily. Next Dose: Sevelamer (sevelamer carbonate 800 mg oral tablet) 2 tab(s) Oral 3 times a day. Next Dose: Allergy Info:?? Ambien Medications Given This Visit Future Orders ?No future orders Vital Signs Height Weight BMI Blood Pressure / Temperature Pulse Rate Respiratory Rate 02 Sat Mode of Delivery / You can now view a summary of your hospital visit from the comfort of your home through a free online portal called [employer]. [employer] is a website that allows you to securely view your medical information including discharge summary, medications and follow-up visits. ??You can alsosend a secure electronic message to your doctor???s office to request appointments, renew medications or just ask a question. You can enroll at [email or web address] or register during your next office visit. [...] primary care provider, you may find a [facility] provider by calling [facility] at [phone]. For information about the plan of care [...] Team Personnel Name: Nicole Soria RN Position: [facility] RN Member Role: Primary Care Nurse Name: Nettie Woods RN Position: [facility] ED RN W/OE and Tasks Member Role: Primary Care Nurse Name: Amelia Molina RN Position: [facility] RN Member Role: Primary Care Nurse Name: Tami Morrow RN Position: [facility] RN Member Role: Primary Care Nurse Name: Grabiel Russell RN Position: [facility] RN Member Role: Primary Care Nurse Name: Nika Swift Position: [facility] RN Member Role: Primary Care Nurse Name: Mickey Mercer RN Position: [facility] RN Member Role: Primary Care Nurse Name: Shaina Briscoe RN Position: [facility] FLASH Nurse Member Role: Primary Care Nurse Name: Leo Almendarez RN Position: [facility] RN Member Role: Primary Care Nurse Name: Delilah López RN Position: [facility] RN Member Role: Primary Care Nurse Name: Vu Martinez RN Position: [facility] RN Member Role: Primary Care Nurse Name: Salvador Ngo RN Position: S RN Supv Member Role: Primary Care Nurse Name: Toya Valenzuela Position: S RN Member Role: Primary Care Nurse Name: Leo Saavedra MD Position: [facility] General Pediatrics MD Member Role: PCP Address: Address: [address] [facility] [address] [place] [address]- [place] Name: Nkechi Worley RN Position: S RN Member Role: Primary Care Nurse Name: Delilah Guadarrama RN Position: S RN Member Role: Primary Care Nurse Name: Thai Quesada MD Position: [facility] Renal MD Member Role: Lifetime Consulting Physician Address: Address: [address] [facility] [address] [facility], [place] [address]- [place] Name: Emmanuel Soriano RN Position: [facility] RN Member Role: Primary Care Nurse Name: Ainsley Galdamez Position: [facility] Associate Professional Member Role: Lifetime Consulting Provider Address: Address: [address] [facility] [place] [address]- [place] Name: Nidia Pollock RN Position: S RN Member Role: Primary Care Nurse Name: Naresh Gibbons MD Position: [facility] Physician - Infectious Disease Member Role: Lifetime Consulting Physician Address: Address: [address] [facility] [place] [address]- [place] Name: Lily Campbell RN Position: S RN Member Role: Primary Care Nurse Name: Veena Mayberry RN Position: S RN Supv Member Role: Primary Care Nurse Name: Yi Paiz RN Position: S RN Member Role: Primary Care Nurse Care Team Related Persons Name: BENNIE HERNÁNDEZ Address: [address] [place] [address] Name: GENO COTTRELL Address: [address] [address] Name: HEATHER HINOJOSA
--- OUTSIDE RECORDS SUMMARY | 2022-11-29 07:14 | XMS_ITS | Continuity of Care Document ---
Author Name Unknown Organization [facility] Address [address] [place] [address]- Care Team Providers Care Silver Chaser Name Role Phone Keri BELTRAN, Leo Moy Primary Care Physician Encounter [facility] Date(s): 10/03/22 - 11/02/22 [facility] [address] [place] [address]- Allergies, Adverse Reactions, Alerts Substance Reaction Severity [...] 100 in lifetime) entered on: 08/01/22 Sex Patient Care team information Care Team Personnel Name: Nicole Soria RN Position: [facility] RN Member Role: Primary Care Nurse Name: Nettie Woods RN Position: [facility] ED RN W/OE and Tasks Member Role: Primary Care Nurse Name: Amelia Molina RN Position: [facility] RN Member Role: Primary Care Nurse Name: Tami Morrow RN Position: [facility] RN Member Role: Primary Care Nurse Name: Grabiel Russell RN Position: [facility] RN Member Role: Primary Care Nurse Name: Nika Swift Position: [facility] RN Member Role: Primary Care Nurse Name: Mickey Mercer RN Position: [facility] RN Member Role: Primary Care Nurse Name: Shaina Briscoe RN Position: [facility] AMB Nurse Member Role: Primary Care Nurse Name: Leo Almendarez RN Position: [facility] RN Member Role: Primary Care Nurse Name: Delilah López RN Position: [facility] RN Member Role: Primary Care Nurse Name: Vu Martinez RN Position: [facility] RN Member Role: Primary Care Nurse Name: Salvador Ngo RN Position: [facility] RN Supcorby Member Role: Primary Care Nurse Name: Toya Valenzuela Position: [facility] RN Member Role: Primary Care Nurse Name: Leo Saavedra MD Position: [facility] General Pediatrics MD Member Role: PCP Address: Address: [address] [place] [address] [address] [place] [address]- Name: Nkechi Worley RN Position: [facility] RN Member Role: Primary Care Nurse Name: Delilah Guadarrama RN Position: [facility] RN Member Role: Primary Care Nurse Name: Thai Quesada MD Position: [facility] Renal MD Member Role: Lifetime Consulting Physician Address: Address: [address] [facility] [place] [address]- Name: Emmanuel Soriano RN Position: S RN Member Role: Primary Care Nurse Name: Ainsley Galdamez Position: [facility] Associate Professional Member Role: Lifetime Consulting Provider Address: Address: [address] [facility] [place] [address]- Name: Nidia Pollock RN Position: [facility] RN Member Role: Primary Care Nurse Name: Naresh Gibbons MD Position: [facility] Physician - Infectious Disease Member Role: Lifetime Consulting Physician Address: Address: [address] [facility] [place] [address]- Name: Lily Campbell RN Position: [facility] RN Member Role: Primary Care Nurse Name: Veena Mayberry RN Position: [facility] RN Supv Member Role: Primary Care Nurse Name: Yi Paiz RN Position: [facility] RN Member Role: Primary Care Nurse Care Team Related Persons Name: BENNIE HERNÁNDEZ Address: home [address] [place] [address] Name: GENO COTTRELL Address: home [address] [address] Name: HEATHER HINOJOSA
--- OUTSIDE RECORDS SUMMARY | 2022-11-29 07:14 | XMS_ITS | Continuity of Care Document ---
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 Start Date: 10/07/22 Stop Date: 10/12/22 Status: [...] 10/07/22 14:44:00 EDT, [facility], Partial fill upon patient request... 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 Discharge Diagnosis 10/03/22 Vital Signs Most recent to oldest [Reference Range]: 1 Height 175 cm (10/03/22 3:47 PM) Weight 106.36 kg (10/03/22 3:47 PM) Oxygen Saturation [94-100 %] 97 % (10/03/22 3:47 PM) Pulse Rate [55-90 bpm] 83 bpm (10/03/22 3:47 PM) Body Mass Index [18.5-24.99 kg/m2] 34.73 kg/m2 *>HHI* (10/03/22 3:47 PM) Blood Pressure [90-138/55-84 mm Hg] 140/ 80mm Hg *H* (10/03/22 3:47 PM) Mode of Delivery (Oxygen) Room air (10/03/22 3:47 PM) Blood pressure sites Arm, left (10/03/22 3:47 PM) Weight Obtained Via Patient/family state d (10/03/22 3:47 PM) Social History Social History Type Response Smoking Status Never (less than 100 in lifetime) entered on: 08/01/22 Sex Note * Georges Cornell: PERFORM, SIGN, VERIFY Event Display: Patient Education/Instruction Authored Date: [id number] [facility] [address] Clinical Summary Name MINAL COTTRELL Age 62 Years 1960 PCP Keri BELTRAN, Leo Moy PCP Visit Date 10/03/2022 15:31:00 Additional Instructions: Scheduled Appointments?? Future Appointments ?No Future Appointments Scheduled Follow-Up Instructions ?? With: Address: When: Chris BELTRAN, Philip Warren 09/12/2022 12:00 AM Comments: Please have him return for repeat the MICHAEL TBI and??wound evaluation with??next available CARTON INSPECTOR in about??3 to 4 weeks Diagnosis Atherosclerosis of unspecified type of bypass graft(s) of the extremities with rest pain, bilaterallegs Medications: Please continue your medications until treatment is completed or stopped by your provider. Discuss any questions related to medications with your provider. Medications to Continue with No Changes These medications were not printed or sent to your pharmacy Amlodipine (Norvasc 10 mg oral tablet) 1 tab(s) Oral [...] tab(s) Oral Daily. Refills: 4. Next Dose: Metoprolol (metoprolol succinate 25 mg oral capsule, extended release) 2 capsule Oral Daily. Next Dose: Provencal-3 Polyunsaturated Fatty Acids (Fish Oil 1000 mg oral capsule) 2 capsule Oral Daily. Next Dose: Sevelamer (sevelamer carbonate 800 mg oral tablet) 2 tab(s) Oral 3 times a day. Next Dose: Allergy Info:?? Ambien Medications Given This Visit Future Orders ?VL Ankle Brachial Indices? Order Date:10/24/22?- Complete by?10/28/22 Vital Signs Height 175 cm Weight 106.36 kg BMI 34.73 kg/m2 Blood Pressure 140 mm Hg/80 mm Hg Temperature Pulse Rate 83 bpm Respiratory Rate 02 Sat Mode of Delivery 97 %/Room air You can now view a summary of your hospital visit from the comfort of your home through a free online portal called [facility]. [facility] is a website that allows you to securely view your medical information including discharge summary, medications and follow-up visits. ??You can alsosend a secure electronic message to your doctor???s office to request appointments, renew medications or just ask a question. You can enroll at [email or web address] or register during your next office visit. [...] primary care provider, you may find a [facility] provider by calling [facility] at [phone]. For information about the plan of care [...] Team Personnel Name: Nicole Soria RN Position: [facility] RN Member Role: Primary Care Nurse Name: Nettie Woods RN Position: [facility] ED RN W/OE and Tasks Member Role: Primary Care Nurse Name: Amelia Molina RN Position: [facility] RN Member Role: Primary Care Nurse Name: Tami Morrow RN Position: [facility] RN Member Role: Primary Care Nurse Name: Grabiel Russell RN Position: [facility] RN Member Role: Primary Care Nurse Name: Nika Swift Position: [facility] RN Member Role: Primary Care Nurse Name: Mickey Mercer RN Position: [facility] RN Member Role: Primary Care Nurse Name: Shaina Briscoe RN Position: [facility] AMB Nurse Member Role: Primary Care Nurse Name: Leo Almendarez RN Position: [facility] RN Member Role: Primary Care Nurse Name: Delilah López RN Position: [facility] RN Member Role: Primary Care Nurse Name: Vu Martinez RN Position: [facility] RN Member Role: Primary Care Nurse Name: Salvador Ngo RN Position: [facility] RN Supv Member Role: Primary Care Nurse Name: Toya Valenzuela Position: [facility] RN Member Role: Primary Care Nurse Name: Leo Saavedra MD Position: [facility] General Pediatrics MD Member Role: PCP Address: Address: [address] [place] [address] [address] [place] [address]- Name: Nkechi Worley RN Position: [facility] RN Member Role: Primary Care Nurse Name: Delilah Guadarrama RN Position: [facility] RN Member Role: Primary Care Nurse Name: Thai Quesada MD Position: [facility] Renal MD Member Role: Lifetime Consulting Physician Address: Address: [address] [facility] [place], [place] [address]- [place] Name: Emmanuel Soriano RN Position: [facility] RN Member Role: Primary Care Nurse Name: Ainsley Galdamez Position: [facility] Associate Professional Member Role: Lifetime Consulting Provider Address: Address: [address] [facility] [place] [address]- Name: Nidia Pollock RN Position: [facility] RN Member Role: Primary Care Nurse Name: Naresh Gibbons MD Position: [facility] Physician - Infectious Disease Member Role: Lifetime Consulting Physician Address: Address: [address] [place] [address] Infectious [place] [address]- Name: Lily Campbell RN Position: [facility] RN Member Role: Primary Care Nurse Name: Veena Mayberry RN Position: [facility] RN Supv Member Role: Primary Care Nurse Name: Yi Paiz RN Position: [facility] RN Member Role: Primary Care Nurse Care Team Related Persons Name: BENNIE HERNÁNDEZ Address: home [address] [place] [address] Name: GENO COTTRELL Address: [address] [address] Name: HEATHER HINOJOSA
[2022-11-29 08:13] LABS: MANUAL DIFF FLAG NO
[2022-11-29 08:23] LABS: Basophils Absolute Auto 0.1 X10*3/uL (0.0-0.2); Basophils Percent Auto 0.7 % (0-2); Eosinophils Absolute Auto 0.2 X10*3/uL (0.0-0.4); Eosinophils Percent Auto 2.4 % (0-4); Hematocrit 37.1 % (42.0-52.0); Hemoglobin 12.3 g/dl (14.0-18.0); Imm Gran Abs Auto 0.05 X10*3/uL (0.00-0.03); Imm Gran Pct Auto 0.6 % (0.0-0.4); Lymphocytes Absolute Auto 1.9 X10*3/uL (1.2-4.9); Lymphocytes Percent Auto 21.7 % (20-40); Mean Corpuscular HGB Conc 33.2 g/dl (31.0-36.0); Mean Corpuscular Hemoglobin 33.8 pg (27.0-33.0); Mean Corpuscular Volume 101.9 fL (80.0-98.0); Mean Platelet Volume 9.6 fL (9.4-12.4); Monocytes Percent Auto 11.1 % (2-11); Neutrophils Absolute Auto 5.7 x10*3/uL (2.0-8.3); Neutrophils Percent Auto 63.5 % (45-73); Platelet Count 136 X10*3/uL (160-400); Red Blood Count 3.64 X10*6/uL (4.60-5.80); Red Cell Distribution Width 15.3 % (11.0-16.0); White Blood Count 8.9 X10*3/uL (4.8-10.8)
[2022-11-29 08:29] LABS: D Dimer High Sensitivity 199 NG/ML
[2022-11-29] MEDS: Morphine Sulfate 4 MG/ML CARTRIDGE IVPUSH (08:35)
[2022-11-29 08:36] LABS: B Type Natriuretic Peptide 598 pg/mL (<100)
[2022-11-29 08:38] LABS: Troponin-I High Sensitivity 62.8 ng/L (<3.5-35.0)
[2022-11-29 08:39] LABS: COVID-19 Test Negative (Negative); IDNOW Serial# BCCEAD1C
[2022-11-29 08:44] LABS: Alanine Aminotransferase 5 U/L (0-40); Albumin Level 3.8 g/dL (3.5-5.0); Alkaline Phosphatase 88 U/L (39-117); Anion Gap 22 (12-20); Aspartate Amino Transferase 15 U/L (5-37); Bilirubin Total 0.3 mg/dL (0.0-1.0); Blood Urea Nitrogen 68 mg/dL (9-16); C Reactive Protein 1.38 mg/dL (< or = 0.50); Carbon Dioxide 27 mmol/L (22-29); Chloride 93 mmol/L (96-108); Creatinine Clr Calc Pharmacy 8.5; Estimated Glomerular Filt Rate 5; Glucose Random 86 mg/dL (60-115); Lipase 31 U/L (8-78); Magnesium 2.1 mg/dL (1.6-2.6); Potassium 5.4 mmol/L (3.3-5.1); Sodium 137 mmol/L (135-145); Total Protein 7.2 g/dL (6.5-8.0)
--- NOTE | 2022-11-29 08:50 | PC.NURSE ---
ULTRASOUND AT BEDSIDE.
--- NOTE | 2022-11-29 09:51 | PC.NURSE ---
PT A/O X 3 NO SOB/JOSE ANTONIO NOTED SPEAKS IN FULL SENTENCES. LUNGS MAXINE UPPER - DIMINISHED. MAXINE LOWER LUNGS - CTA . HEART SOUNDS - REGULAR. ABD SOFT AND NON-TENDER. BX + X 4 QUADS. L LOWER LEG - HAS SMALL OPEN WOUNDS. PT REFUSED TO HAVE LOWER LEFT LEG WRAPPED. NO EDEMA NOTED. PT C/O INCREASING MAXINE LEG PAIN. MLP (KELLY) AWARE.
[2022-11-29] MEDS: HYDROmorphone HCl 1 MG/ML SYRINGE IVPUSH ×2 (10:11→21:31)
[2022-11-29 11:22] LABS: Troponin-I High Sensitivity 77.9 ng/L (<3.5-35.0)
[2022-11-29] MEDS: Albuterol Sulfate 2.5 MG/0.5 ML VIAL.NEB 10 MG INHALE (14:31)
[2022-11-29 14:35] LABS: Appearance Urine Clear; Color Urine Yellow; Glucose Urine UA 100 mg/dL (Negative); Leukocyte Esterase Urine Negative (Negative); Nitrite Urine Negative (Negative); PH 8.5 (5.0-9.0); UMIC TRIGGER UACC YES; Urine Blood Trace (Negative); Urine Ketones Negative (Negative); Urine Protein 300 (3+) mg/dL (Neg-Trace)
[2022-11-29 14:38] LABS: Bacteria Urine None Seen (None Seen); Hyaline Casts Urine 0-2 /LPF (0-2); RBC Urine 0-2 /HPF (0-2); Squamous Epithelial Cell Urine 0-2 /HPF (0-2); WBC Urine 0-5 /HPF (0-5)
[2022-11-29] MEDS: Lidocaine 4 % Patch ADH..PATCH 2 PATCH TRANSDERMA (14:38)
[2022-11-29] MEDS: Calcium Gluconate/NaCl,Iso-Osm 2 GM/100 ML PLAST..BAG IV (14:39)
[2022-11-29] MEDS: Sodium Zirconium Cyclosilicate 10 GM POWD.PACK PO (14:39)
[2022-11-29] MEDS: Dextrose 50 % 25 GM/50 ML SYRINGE IVPUSH (14:39)
--- NOTE | 2022-11-29 15:15 | PHA.MEDREC ---
Pharmacy Consult ? Medication Reconciliation Pharmacy has completed the medication reconciliation. Patient reported medications. Informed patient we do not have Velphoro, and he will see if he can have family bring it in. Marleny Murphy, Mary CarmenD
--- NOTE | 2022-11-29 15:38 | PM.IMHP ---
History of Present Illness Date of Service: 11/29/22 Attending physician on admission: Francisco García Chief Complaint: Bilateral leg pain, missed dialysis Pt is a 62-year-old male with a PMH significant for?ESRD on hemodialysis M/W/F, hypothyroidism, CAD, HTN, neuropathy, restless leg syndrome, chronic venous stasis ulcers bilaterally of lower legs, and hypothyroidism who presents to the ED with intractable lower leg pain. Patient has been experiencing pain in his lower extremities for the past 12 years and claims no one's done anything about it. Pain is described as sharp, shooting and radiating up his legs. For the past few years patient has had chronic stasis ulcers on his lower legs bilaterally. Patient is followed by wound care clinic for his ulcers, and has recently started seeing a Pain Care Clinic. Patient also notes that he missed dialysis earlier today due to his leg pain and being in the emergency room. He admits he has missed dialysis ?a few times? before. Additionally patient has chronic back and shoulder pain. Denies chest pain/pressure, palpitations. No shortness of breath. Denies fever, chills, nausea, vomiting, abdominal pain. In the ED patient was afebrile, but hypertensive up tot 171/83. Labs were significant for H&H 12.3/37.1, MCV 101.9, potassium 5.4 repeat 6.0, BUN 69, creatinine 10.44, initial troponin 62.8 with repeat 77.9, CRP 1.38, BNP 598. Lactic acid WNL at 1.0. UA negative for UTI. Left foot x-ray showed small degenerative calcaneal spurs and moderate to severe atherosclerosis, but negative for acute fractures or evidence of osteomyelitis. Arterial duplex ultrasound bilateral lower extremities found mildly asymmetrical elevated arterial velocities in the left anterior tibial and peroneal arteries, suggestive of mild stenosis. CT of abdomen and pelvis showed no evidence of renal, ureteral, bladder calculi or hydroureteronephrosis. Did show bilateral renal lesions with suspicion for left lower pole solid lesion, recommended to get initial renal sonographic evaluation. Also found large fat filled inguinal hernias, right greater than left. Abdominal ultrasound found cholelithiasis without evidence of acute cholecystitis, also found small interpolar right renal cyst demonstrating likely benign features, not requiring follow-up. EKG demonstrated normal sinus rhythm without evidence of ST elevations or depressions. Pt was treated with morphine, hydromorphone albuterol, lidocaine patch, glaucoma, calcium gluconate, and dextrose. Pt will be admitted to the hospital for missed dialysis and hyperkalemia in the setting of lower leg pain. Review of Systems Review of Systems: Chronic bilateral lower leg pain Chronic back and shoulder pain Missed dialysis Denies fever, chills, nausea, vomiting, abdominal pain No headache, lightheadedness, dizziness Denies chest pain/pressure, palpitations Yes all other systems are reviewed and are negative [facility] Medical History (Updated 11/29/22 @ 18:16 by BEN Pierson) Acquired hypothyroidism Acute renal failure on dialysis Atherosclerosis of grayling coronary artery of grayling heart without angina pectoris Blind right eye Chronic diastolic heart failure Chronic gout due to renal impairment Chronic kidney disease Edema End stage renal disease ESRD on dialysis Essential hypertension Foot pain, bilateral Gout Hallucinations HTN (hypertension) Hyperlipidemia Impacted cerumen of left ear Impaired fasting glucose Iron deficiency anemia Moderate episode of recurrent major depressive disorder Neuropathy Normocytic anemia Obesity, Class II, BMI 35-39.9 Polyp of colon, adenomatous Restless leg syndrome Seasonal allergic rhinitis due to pollen Sensory neuropathy Sleep apnea Stasis dermatitis of both legs Thrombocytopenia Surgical History History of coronary artery bypass graft Social History Alcohol intake: never Patient Tobacco Use Status: Never used Tobacco Smoked in Last 30 Days: No Use of substances other than those prescribed or required for medical reasons: No Advance Directives: Yes Advance Directives Information Provided: No Advance Directives on File: No Meds Allergies Allergy/AdvReac Type Severity Reaction Status Date / Time prednisone AdvReac Unknown shortness Verified 10/02/22 14:09 of breath zolpidem AdvReac Hallucinati Verified 10/02/22 14:09 ons Active Medications: Current Medications Calcium Gluconate (Calcium Gluconate) 2 gm in 100 mls @ 50 mls/hr IV ONCE ONE Stop: 11/29/22 16:18 Last Admin: 11/29/22 14:39 Dose: 50 mls/hr Home Medications Medication Instructions Recorded Confirmed Last Taken Type levothyroxine 125 mcg tablet 1 tab PO QAM 01/18/22 11/29/22 Unknown History metoprolol succinate 50 mg 1 tab PO DAILY 01/18/22 11/29/22 01/19/22 History tablet,extended release 24 hr aspirin 81 mg chewable tablet 81 mg PO DAILY 11/29/22 11/29/22 Unknown History cholecalciferol (vitamin D3) 25 25 mcg PO DAILY 11/29/22 11/29/22 Unknown History mcg (1,000 unit) tablet docusate sodium 100 mg tablet 200 mg PO DAILY 11/29/22 11/29/22 Unknown History omega 1-jsq-cxy-fish oil 1,000 mg 1 cap PO DAILY 11/29/22 11/29/22 Unknown History (120 mg-180 mg) capsule (Fish Oil) sucroferric oxyhydroxide 500 mg 1,500 mg PO BID 11/29/22 11/29/22 Unknown History chewable tablet (Velphoro) Physical Exam Vital Signs and Narrative: Vital Signs: Last Vital Signs Temp 98.4 F 11/29/22 13:51 Pulse 81 11/29/22 14:33 Resp 16 11/29/22 14:33 BP 171/83 H 11/29/22 13:51 Pulse Ox 98 11/29/22 13:51 O2 Del Method Room Air 11/29/22 13:51 BMI result Body Mass Index 34.7 Constitutional: Alert, in no acute distress. Mental Status: Oriented to person, place and time. Eyes: Pupils are equal, round, and reactive to light. Ear, Nose, and Throat: Oropharynx clear, mucous membranes moist. Ears and nose without deformities. Trachea midline. Respiratory: Clear to auscultation bilaterally. No wheezing, rales, or rhonchi. Cardiovascular: S1, S2 regular. No murmurs, rubs, or gallops. Gastrointestinal: Abdomen soft, non-tender, non-distended. Normal bowel sounds. Neurologic: Cranial nerves II-XII are grossly intact bilaterally. No focal neurological deficits. Moves all extremities spontaneously. Skin: No rashes or lesions noted. Musculoskeletal: No cyanosis or clubbing. Extremities: No edema. Multiple sores and ulcerations as depicted below. No evidence of infection. Psychiatric: Normal mood and affect. Results Labs 11/29/22 08:05 11/29/22 13:57 Labs: Laboratory Results - last 24 hr 11/29/22 11/29/22 11/29/22 08:05 08:05 08:05 MCV 101.9 H MCH 33.8 H MCHC 33.2 RDW 15.3 Plt Count 136 L MPV 9.6 Immature Gran % (Auto) 0.6 H Neut % (Auto) 63.5 Lymph % (Auto) 21.7 Dodge % (Auto) 11.1 H Eos % (Auto) 2.4 Baso % (Auto) 0.7 Lymph # (Auto) 1.9 Dodge # (Auto) 1.0 Eos # (Auto) 0.2 Baso # (Auto) 0.1 Abs Immat Gran (auto) 0.05 H Absolute Neuts (auto) 5.7 Absolute Nucleated RBC 0.000 Nucleated RBC % (auto) 0.0 D-Dimer High Sensitivty 199 Anion Gap 22 H Estim Creat Clear Calc 8.5 Estimated GFR 5 Random Glucose 86 Lactic Acid Calcium 11.0 H Magnesium 2.1 Total Bilirubin 0.3 AST 15 ALT 5 Alkaline Phosphatase 88 Total Creatine Kinase 67 C-Reactive Protein 1.38 H B-Natriuretic Peptide Total Protein 7.2 Albumin 3.8 Lipase 31 Urine Color Urine Appearance Urine pH Ur Specific Jayess Urine Protein Urine Glucose (UA) Urine Ketones Urine Blood Urine Nitrite Ur Leukocyte Esterase Urine RBC Urine WBC Ur Squamous Epith Cells Urine Bacteria Hyaline Casts COVID-19 ([facility]) COVID-19 Clin Com 11/29/22 11/29/22 11/29/22 08:05 08:05 08:05 MCV MCH MCHC RDW Plt Count MPV Immature Gran % (Auto) Neut % (Auto) Lymph % (Auto) Dodge % (Auto) Eos % (Auto) Baso % (Auto) Lymph # (Auto) Dodge # (Auto) Eos # (Auto) Baso # (Auto) Abs Immat Gran (auto) Absolute Neuts (auto) Absolute Nucleated RBC Nucleated RBC % (auto) D-Dimer High Sensitivty Anion Gap Estim Creat Clear Calc Estimated GFR Random Glucose Lactic Acid 1.0 Calcium Magnesium Total Bilirubin AST ALT Alkaline Phosphatase Total Creatine Kinase C-Reactive Protein B-Natriuretic Peptide 598 H Total Protein Albumin Lipase Urine Color Urine Appearance Urine pH Ur Specific Jayess Urine Protein Urine Glucose (UA) Urine Ketones Urine Blood Urine Nitrite Ur Leukocyte Esterase Urine RBC Urine WBC Ur Squamous Epith Cells Urine Bacteria Hyaline Casts COVID-19 ([facility]) Negative COVID-19 Clin Com See Note 11/29/22 14:28 MCV MCH MCHC RDW Plt Count MPV Immature Gran % (Auto) Neut % (Auto) Lymph % (Auto) Dodge % (Auto) Eos % (Auto) Baso % (Auto) Lymph # (Auto) Dodge # (Auto) Eos # (Auto) Baso # (Auto) Abs Immat Gran (auto) Absolute Neuts (auto) Absolute Nucleated RBC Nucleated RBC % (auto) D-Dimer High Sensitivty Anion Gap Estim Creat Clear Calc Estimated GFR Random Glucose Lactic Acid Calcium Magnesium Total Bilirubin AST ALT Alkaline Phosphatase Total Creatine Kinase C-Reactive Protein B-Natriuretic Peptide Total Protein Albumin Lipase Urine Color Yellow Urine Appearance Clear Urine pH 8.5 Ur Specific Jayess 1.010 Urine Protein 300 (3+) H Urine Glucose (UA) 100 H Urine Ketones Negative Urine Blood Trace H Urine Nitrite Negative Ur Leukocyte Esterase Negative Urine RBC 0-2 Urine WBC 0-5 Ur Squamous Epith Cells 0-2 Urine Bacteria None Seen Hyaline Casts 0-2 COVID-19 ([facility]) COVID-19 Clin Com Imaging Radiologist's Impressions: Impressions Duplex Scan Lower Extremity Artery 11/29/22 09:08 IMPRESSION: Mildly asymmetrically elevated arterial velocities in the left anterior tibial and peroneal arteries suggestive of mild stenosis. Abdomen/Pelvis CT 11/29/22 09:20 IMPRESSION: No CT evidence of renal, ureteral, bladder calculi, or hydroureteronephrosis. Atrophic kidneys. Bilateral renal lesions with suspicion for left lower pole solid lesion(s). Initial renal sonographic evaluation recommended. If indeterminate, renal protocol MRI should be performed. Cholelithiasis. Diverticulosis. Large fat filled inguinal hernias, right greater than left. On the right, superior aspect of the urinary bladder tethered into the origin of the inguinal hernia. Fleischner guidelines were followed. Foot X-Ray 11/29/22 11:51 IMPRESSION: 1. Small degenerative calcaneal spurs. No acute fracture. 2. Moderate to severe atherosclerosis. Abdomen Ultrasound 11/29/22 11:55 IMPRESSION: 1. Cholelithiasis without evidence for acute cholecystitis. 2. Right renal cortical atrophy and small interpolar right renal cyst demonstrates benign features, not requiring follow-up at this time. Assessment and Plan (1) Acute hyperkalemia: Status: Acute (2) End stage renal disease: Status: Acute Plan Pt is a 62-year-old male with a PMH significant for?ESRD on hemodialysis M/W/F, hypothyroidism, CAD, HTN, neuropathy, restless leg syndrome, chronic venous stasis ulcers bilaterally of lower legs, and hypothyroidism who presents to the ED with intractable lower leg pain. Patient has been experiencing pain in his lower extremities for the past 12 years and claims no one's done anything about it. Pain is described as sharp, shooting and radiating up his legs. For the past few years patient has had chronic stasis ulcers on his lower legs bilaterally. Patient is followed by wound care clinic for his ulcers, and has recently started seeing a Pain Care Clinic. Patient also notes that he missed dialysis earlier today due to his leg pain and being in the emergency room. Pt will be admitted to the hospital for missed dialysis and hyperkalemia in the setting of lower leg pain. ESRD on hemodialysis M/W/F Patient missed dialysis earlier today due to being in the ED for lower leg pain Nephrology consult Patient to receive the emergent dialysis Hyperkalemia Patient's potassium 5.4 with repeat 6.0 Patient received Lokelma, calcium gluconate, dialysis Follow BMP Lower leg radiculopathy Analgesics for pain management Follow-up outpatient with Pain Clinic Chronic venous stasis lower leg ulcerations No sign of acute infection Follow-up outpatient with wound care HTN Continue amlodipine Hypothyroidism Continue levothyroxine CAD Continue aspirin Full Code Attending:?Dr. García DVT Prophylaxis: Heparin Pt will require a hospitalization of at least two nights for treatment of?hyperkalemia and missed dialysis with emergent dialysis and close monitoring. Time Spent With Patient Time: Total time managing care of this patient today ____ minutes. Quality Stroke Does the patient have a stroke diagnosis?: No VTE Prior VTE?: No VTE Risk Level:: Medical - moderate - high VTE Device Contraindication: Treatment Not Indicated VTE Drug Contraindication: N/A - Med Ordered
[2022-11-29] MEDS: Acetaminophen 325 MG TABLET 650 MG PO (21:32)
--- NOTE | 2022-11-29 21:42 | PC.NURSE ---
First call to [facility]. Nkechi
[2022-11-30] MEDS: oxyCODONE HCl Immed Release 5 MG TABLET 10 MG PO ×3 (00:54→11:34)
[2022-11-30] MEDS: 0.9 % Sodium Chloride Flush 3 ML SYRINGE IVFLUSH ×3 (00:55→17:02)
[2022-11-30 04:00] VITALS: BP 135/68; PULSE 74; RESP 18; TEMP 36.3; O2SAT 98
[2022-11-30] MEDS: Levothyroxine Sodium 125 MCG TABLET PO (06:15)
[2022-11-30 06:32] LABS: Anion Gap 20 (12-20); Blood Urea Nitrogen 49 mg/dL (9-16); Calcium 10.4 mg/dL (8.4-10.2); Carbon Dioxide 21 mmol/L (22-29); Chloride 97 mmol/L (96-108); Creatinine Clr Calc Pharmacy 9.9; Estimated Glomerular Filt Rate 6; Glucose Random 82 mg/dL (60-115); Potassium 5.3 mmol/L (3.3-5.1); Sodium 133 mmol/L (135-145)
[2022-11-30 06:57] LABS: Hemoglobin 13.9 g/dl (14.0-18.0); Mean Corpuscular HGB Conc 32.3 g/dl (31.0-36.0); Mean Corpuscular Hemoglobin 33.7 pg (27.0-33.0); Mean Corpuscular Volume 104.4 fL (80.0-98.0); Mean Platelet Volume 10.2 fL (9.4-12.4); Platelet Count 120 X10*3/uL (160-400); Red Blood Count 4.12 X10*6/uL (4.60-5.80); Red Cell Distribution Width 15.7 % (11.0-16.0); White Blood Count 7.7 X10*3/uL (4.8-10.8)
[2022-11-30 07:27] VITALS: BP 161/97; PULSE 73; RESP 20; TEMP 37.1; O2SAT 99
[2022-11-30] MEDS: Cholecalciferol (Vitamin D3) 25 MCG TABLET PO (08:28)
[2022-11-30] MEDS: amLODIPine Besylate 10 MG TABLET PO (08:28)
[2022-11-30] MEDS: Metoprolol Succinate ER 50 MG TAB.ER.24H PO (08:28)
[2022-11-30] MEDS: Aspirin 81 MG TAB.CHEW PO (08:28)
[2022-11-30] MEDS: Docusate Sodium 100 MG CAPSULE 200 MG PO (08:28)
--- NOTE | 2022-11-30 09:41 | MHC.CM.PN ---
IMM 11/30. Pt admitted with leg pain, and missed dialysis. Pt lives at home alone, has VNA with [facility], goes to outpatient wound care clinic, and pain care clinic, and HD on . D/C plan is to return home with resumption of previous services. Pts sister to transport. Pt states his daughter Trupti is HCP, copy requested. PCP: Leo Jovel vax: x 2
--- NOTE | 2022-11-30 10:23 | PM.CNNEP ---
History of Present Illness Reason for Consult Consult date: 12/01/22 Reason for consult: ESRD Chief Complaint Chief complaint: leg pain, missed dialysis History of Present Illness Narrative: 62-year-old male with a PMH significant for?ESRD on hemodialysis M/W/F, hypothyroidism, CAD, HTN, neuropathy, restless leg syndrome, chronic venous stasis ulcers bilaterally of lower legs, and hypothyroidism who presents to the ED with intractable lower leg pain.? Patient has been experiencing pain in his lower extremities for the past 12 years and claims no one's done anything about it. Pain is described as sharp, shooting and radiating up his legs.? For the past few years patient has had chronic stasis ulcers on his lower legs bilaterally.? Patient is followed by wound care clinic for his ulcers, and has recently started seeing a Pain Care Clinic.? Patient also notes that he missed dialysis earlier today due to his leg pain and being in the emergency room.? He admits he has missed dialysis ?a few times? before.? Additionally patient has chronic back and shoulder pain.? Denies chest pain/pressure, palpitations.? No shortness of breath.? Denies fever, chills, nausea, vomiting, abdominal pain. Had HD yesterday Review of Systems Review of Systems No headache. No nausea vomiting. No abdominal pain. No shortness of breath. No cough. No dysuria urgency or hematuria. Leg wound PMFSH Past Medical History Medical History Acquired hypothyroidism Acute renal failure on dialysis Atherosclerosis of [place] coronary artery of [place] heart without angina pectoris Blind right eye Chronic diastolic heart failure Chronic gout due to renal impairment Chronic kidney disease Edema End stage renal disease ESRD on dialysis Essential hypertension Foot pain, bilateral Gout Hallucinations HTN (hypertension) Hyperlipidemia Impacted cerumen of left ear Impaired fasting glucose Iron deficiency anemia Moderate episode of recurrent major depressive disorder Neuropathy Normocytic anemia Obesity, Class II, BMI 35-39.9 Polyp of colon, adenomatous Restless leg syndrome Seasonal allergic rhinitis due to pollen Sensory neuropathy Sleep apnea Stasis dermatitis of both legs Thrombocytopenia Surgical History Surgical History History of coronary artery bypass graft Social History Social History Household Members: None Housing: Apartment Do you presently have visiting nurse or other home services: Yes Alcohol intake: never Patient Tobacco Use Status: Never used Tobacco Smoked in Last 30 Days: No Use of substances other than those prescribed or required for medical reasons: No Currently Displaying Signs/Symptoms of Drug Intoxication Withdrawal: No Have you been hit, kicked, punched, or otherwise hurt by someone within the past year? If so, by whom?: No Do you feel safe in your current relationship?: No Is there a partner from a previous relationship who is making you feel unsafe now?: No Are you made to feel afraid or neglected: No Advance Directives: No Advance Directives Information Provided: No Advance Directives on File: No Do you have thoughts of harming others: None Do you have a plan to hurt others: No Plan How much weight loss: 34pounds or more Eating poorly because of decreased appetite: No Nutrition Risks: No Nutritional Risk service: No Meds Allergies Allergy/AdvReac Type Severity Reaction Status Date / Time prednisone AdvReac Unknown shortness Verified 10/02/22 14:09 of breath zolpidem AdvReac Hallucinati Verified 10/02/22 14:09 ons Active Medications: Current Medications Acetaminophen (Acetaminophen 325 Mg Tablet) 650 mg PO Q6H PRN PRN Reason: Pain, Mild (Pain Scale 1-3) Last Admin: 11/29/22 21:32 Dose: 650 mg Amlodipine Besylate (Amlodipine Besylate 10 Mg Tablet) 10 mg PO DAILY [facility]; Protocol Last Admin: 11/30/22 08:28 Dose: 10 mg Aspirin (Aspirin 81 Mg Tab.Chew) 81 mg PO DAILY [facility] Last Admin: 11/30/22 08:28 Dose: 81 mg Docusate Sodium (Docusate Sodium 100 Mg Capsule) 100 mg PO DAILY PRN PRN Reason: Constipation Docusate Sodium (Docusate Sodium 100 Mg Capsule) 200 mg PO DAILY [facility] Last Admin: 11/30/22 08:28 Dose: 200 mg Heparin Sodium (Porcine) (Heparin Sodium,Porcine 5,000 Unit/Ml Vial) 5,000 unit SUBCUT Q8H [facility] Last Admin: 11/30/22 00:55 Dose: Not Given Hydromorphone HCl (Hydromorphone Hcl 1 Mg/Ml Syringe) 1 mg IVPUSH Q4H PRN; Protocol PRN Reason: Pain, Severe (Pain Scale 7-10) Last Admin: 11/29/22 21:31 Dose: 1 mg Levothyroxine Sodium (Levothyroxine Sodium 125 Mcg Tablet) 125 mcg PO DAILY@0600 [facility] Last Admin: 11/30/22 06:15 Dose: 125 mcg Metoprolol Succinate (Metoprolol Succinate Er 50 Mg Tab.Er.24h) 50 mg PO DAILY [facility]; Protocol Last Admin: 11/30/22 08:28 Dose: 50 mg Ondansetron HCl (Ondansetron Hcl 4 Mg/2 Ml Vial) 4 mg IVPUSH Q8H PRN PRN Reason: Nausea and Vomiting Oxycodone HCl (Oxycodone Hcl Immed Release 5 Mg Tablet) 10 mg PO Q4H PRN PRN Reason: Pain, Moderate(Pain Scale 4-6) Last Admin: 11/30/22 06:15 Dose: 10 mg Sodium Chloride (0.9 % Sodium Chloride Flush 3 Ml Syringe) 3 ml IVFLUSH QSHIFT [facility] Last Admin: 11/30/22 08:28 Dose: 3 ml Sodium Zirconium Cyclosilicate (Sodium Zirconium Cyclosilicate 10 Gm Powd.Pack) 10 gm PO DAILY [facility] Vitamin D (Cholecalciferol (Vitamin D3) 25 Mcg Tablet) 25 mcg PO DAILY [facility] Last Admin: 11/30/22 08:28 Dose: 25 mcg Home Medications Medication Instructions Recorded Confirmed Last Taken Type levothyroxine 125 mcg tablet 1 tab PO QAM 01/18/22 11/29/22 Unknown History metoprolol succinate 50 mg 1 tab PO DAILY 01/18/22 11/29/22 01/19/22 History tablet,extended release 24 hr aspirin 81 mg chewable tablet 81 mg PO DAILY 11/29/22 11/29/22 Unknown History cholecalciferol (vitamin D3) 25 25 mcg PO DAILY 11/29/22 11/29/22 Unknown History mcg (1,000 unit) tablet docusate sodium 100 mg tablet 200 mg PO DAILY 11/29/22 11/29/22 Unknown History omega 6-nbv-yxh-fish oil 1,000 mg 1 cap PO DAILY 11/29/22 11/29/22 Unknown History (120 mg-180 mg) capsule (Fish Oil) sucroferric oxyhydroxide 500 mg 1,500 mg PO BID 11/29/22 11/29/22 Unknown History chewable tablet (Velphoro) Physical Exam Vital Signs: Last Vital Signs Temp 98.7 F 11/30/22 07:27 Pulse 73 11/30/22 07:27 Resp 20 11/30/22 07:27 BP 161/97 H 11/30/22 07:27 Pulse Ox 99 11/30/22 07:27 O2 Del Method Room Air 11/30/22 07:27 BMI result Body Mass Index 35.2 Comfortable Neck is supple Lung: Air entry equal Heart: S1,S2, normal. No rub Abd: Soft. BS + NS : Alert.No asterexis Ext: lwg wounds Results Lab Results 11/30/22 05:25 11/30/22 05:25 Lab results: Chemistry 11/29/22 11/29/22 11/30/22 08:05 13:57 05:25 Sodium 137 133 L Potassium 5.4 H 6.0 H* 5.3 H Carbon Dioxide 27 21 L BUN 68 H 49 H Creatinine 10.44 H* 8.98 H* Calcium 11.0 H 10.4 H Hematology 11/29/22 11/30/22 08:05 05:25 WBC 8.9 7.7 Hgb 12.3 L 13.9 L Plt Count 136 L 120 L Urinalysis 11/29/22 14:28 Urine Color Yellow Urine Appearance Clear Urine pH 8.5 Ur Specific [place] 1.010 Urine Protein 300 (3+) H Urine Glucose (UA) 100 H Urine Ketones Negative Urine Blood Trace H Urine Nitrite Negative Ur Leukocyte Esterase Negative Urine RBC 0-2 Urine WBC 0-5 Ur Squamous Epith Cells 0-2 Hyaline Casts 0-2 Assessment and Plan (1) End stage renal disease: Status: Acute (2) Acute hyperkalemia: Status: Acute Plan ESRD. No overt signs or symptoms of uremia. Continue dialysis 3 times a week. Hyperkalemia We will administer 1 dose of Lokelma. Keep on low-potassium diet. Time Spent With Patient Time: Total time managing care of this patient today ____ minutes. Procedures Date of Service Date of Service: 12/01/22
[2022-11-30 10:57] VITALS: BP 129/79; PULSE 71; RESP 20; TEMP 36.3; O2SAT 96
--- NOTE | 2022-11-30 11:04 | MHC.CLN ---
NUTRITION REVIEW OF WEIGHT HX SHOWS NO SIGNIFICANT WEIGHT CHANGE X 10 MONTHS. WEIGHT FLUCTUATION ANTICIPATED WITH HEMODIALYSIS.
[2022-11-30] MEDS: Heparin Sodium,Porcine 5,000 UNIT/ML VIAL 5000 UNIT SUBCUT (11:32)
[2022-11-30] MEDS: Sodium Zirconium Cyclosilicate 10 GM POWD.PACK PO (12:58)
[2022-11-30] MEDS: HYDROmorphone HCl 1 MG/ML SYRINGE IVPUSH ×2 (13:00→17:02)
--- NOTE | 2022-11-30 13:07 | HO.PM.IMPN ---
Subjective Subjective Date of Service: 11/30/22 Interval History: Notes improvement after dialysis; pain control adequate on current regiment. Patient has a longstanding history of radicular type pain Review of Systems Denies chest pain Denies shortness of breath Denies nausea vomiting diarrhea Denies fever chills Physical Exam Vital Signs: Vital Signs: Last Vital Signs Temp 97.4 F 11/30/22 10:57 Pulse 71 11/30/22 10:57 Resp 20 11/30/22 10:57 BP 129/79 11/30/22 10:57 Pulse Ox 96 11/30/22 10:57 O2 Del Method Room Air 11/30/22 10:57 BMI result Body Mass Index 35.2 Const: Other: Awake alert comfortable appearing Resp: Other: Clear to auscultation bilaterally no rales rhonchi or wheezes Cardio: Other: No S4; positive S1-S2; no S3 murmurs rubs or gallops Extrem: Other: No edema bilaterally Objective Data Active Medications Acetaminophen (Acetaminophen 325 Mg Tablet) 650 mg PO Q6H PRN PRN Reason: Pain, Mild (Pain Scale 1-3) Last Admin: 11/29/22 21:32 Dose: 650 mg Documented By: DORIS Amlodipine Besylate (Amlodipine Besylate 10 Mg Tablet) 10 mg PO DAILY [facility]; Protocol Last Admin: 11/30/22 08:28 Dose: 10 mg Documented By: VALERIE Aspirin (Aspirin 81 Mg Tab.Chew) 81 mg PO DAILY [facility] Last Admin: 11/30/22 08:28 Dose: 81 mg Documented By: VALERIE Docusate Sodium (Docusate Sodium 100 Mg Capsule) 100 mg PO DAILY PRN PRN Reason: Constipation Docusate Sodium (Docusate Sodium 100 Mg Capsule) 200 mg PO DAILY [facility] Last Admin: 11/30/22 08:28 Dose: 200 mg Documented By: VALERIE Heparin Sodium (Porcine) (Heparin Sodium,Porcine 5,000 Unit/Ml Vial) 5,000 unit SUBCUT Q8H [facility] Last Admin: 11/30/22 11:32 Dose: 5,000 unit Documented By: VALERIE Hydromorphone HCl (Hydromorphone Hcl 1 Mg/Ml Syringe) 1 mg IVPUSH Q4H PRN; Protocol PRN Reason: Pain, Severe (Pain Scale 7-10) Last Admin: 11/30/22 13:00 Dose: 1 mg Documented By: VALERIE Levothyroxine Sodium (Levothyroxine Sodium 125 Mcg Tablet) 125 mcg PO DAILY@0600 [facility] Last Admin: 11/30/22 06:15 Dose: 125 mcg Documented By: DOUG Metoprolol Succinate (Metoprolol Succinate Er 50 Mg Tab.Er.24h) 50 mg PO DAILY [facility]; Protocol Last Admin: 11/30/22 08:28 Dose: 50 mg Documented By: VALERIE Ondansetron HCl (Ondansetron Hcl 4 Mg/2 Ml Vial) 4 mg IVPUSH Q8H PRN PRN Reason: Nausea and Vomiting Oxycodone HCl (Oxycodone Hcl Immed Release 5 Mg Tablet) 10 mg PO Q4H PRN PRN Reason: Pain, Moderate(Pain Scale 4-6) Last Admin: 11/30/22 11:34 Dose: 10 mg Documented By: VALERIE Sodium Chloride (0.9 % Sodium Chloride Flush 3 Ml Syringe) [facility] Last Admin: 11/30/22 08:28 Dose: 3 ml Documented By: VALERIE Sodium Zirconium Cyclosilicate (Sodium Zirconium Cyclosilicate 10 Gm Powd.Pack) 10 gm PO DAILY [facility] Last Admin: 11/30/22 12:58 Dose: 10 gm Documented By: VALERIE Vitamin D (Cholecalciferol (Vitamin D3) 25 Mcg Tablet) 25 mcg PO DAILY [facility] Last Admin: 11/30/22 08:28 Dose: 25 mcg Documented By: VALERIE Labs 11/30/22 05:25 11/30/22 05:25 Labs: Laboratory Results - last 24 hr 11/29/22 11/30/22 11/30/22 14:28 05:25 05:25 MCV 104.4 H MCH 33.7 H MCHC 32.3 RDW 15.7 Plt Count 120 L MPV 10.2 Absolute Nucleated RBC 0.000 Nucleated RBC % (auto) 0.0 Anion Gap 20 Estim Creat Clear Calc 9.9 Estimated GFR 6 Random Glucose 82 Calcium 10.4 H Urine Color Yellow Urine Appearance Clear Urine pH 8.5 Ur Specific [place] 1.010 Urine Protein 300 (3+) H Urine Glucose (UA) 100 H Urine Ketones Negative Urine Blood Trace H Urine Nitrite Negative Ur Leukocyte Esterase Negative Urine RBC 0-2 Urine WBC 0-5 Ur Squamous Epith Cells 0-2 Urine Bacteria None Seen Hyaline Casts 0-2 Microbiology Microbiology Results: Microbiology 11/29/22 08:07 Blood Culture - Preliminary Blood - Venous No growth after 24 hours. 11/29/22 08:05 Blood Culture - Preliminary Blood - Venous No growth after 24 hours. Assessment and Plan (1) Acute hyperkalemia: Status: Acute (2) End stage renal disease: Status: Acute Plan Pt is a 62-year-old male with a PMH significant for?ESRD on hemodialysis M/W/F, hypothyroidism, CAD, HTN, neuropathy, restless leg syndrome, chronic venous stasis ulcers bilaterally of lower legs, and hypothyroidism who presents to the ED with intractable lower leg pain. Patient has been experiencing pain in his lower extremities for the past 12 years and claims no one's done anything about it. Pain is described as sharp, shooting and radiating up his legs. For the past few years patient has had chronic stasis ulcers on his lower legs bilaterally. Patient is followed by wound care clinic for his ulcers, and has recently started seeing a Pain Care Clinic. Patient also notes that he missed dialysis earlier today due to his leg pain and being in the emergency room. Pt will be admitted to the hospital for missed dialysis and hyperkalemia in the setting of lower leg pain. 1.ESRD on hemodialysis; M/W/F -HD yesterday with overall improvement -potassium still elevated; creatinine 8. . . Schedule for dialysis in a.m.. Hopeful discharge thereafter -follow renals/divalents 2.Hyperkalemia -potassium 5.3 today -repeat Lokelma -HD in a.m. 3.Lower leg radiculopathy -longstanding -continue current pain regimen 2.HTN -acceptable control on current therapies -adjust as indicated Full Code Heparin Requires ongoing hospitalization to establish normalization of hyperkalemia with dialysis Time Spent With Patient Time: Total time managing care of this patient today ____ minutes. Quality Stroke Does the patient have a stroke diagnosis?: No VTE Prior VTE?: No VTE Risk Level:: Medical - moderate - high VTE Device Contraindication: Treatment Not Indicated VTE Drug Contraindication: N/A - Med Ordered
[2022-11-30 16:00] VITALS: BP 118/75; PULSE 76; RESP 18; TEMP 36.1; O2SAT 97
[2022-11-30 19:59] VITALS: BP 139/77; PULSE 71; RESP 18; TEMP 36.1; O2SAT 99
[2022-11-30 23:26] VITALS: BP 148/87; PULSE 66; RESP 18; TEMP 37.1; O2SAT 100
[2022-12-01] MEDS: HYDROmorphone HCl 1 MG/ML SYRINGE IVPUSH ×3 (01:01→12:35)
[2022-12-01] MEDS: 0.9 % Sodium Chloride Flush 3 ML SYRINGE IVFLUSH ×2 (01:23→08:27)
[2022-12-01] MEDS: Heparin Sodium,Porcine 5,000 UNIT/ML VIAL 5000 UNIT SUBCUT (01:29)
[2022-12-01 04:00] VITALS: BP 132/76; PULSE 71; TEMP 36.4; O2SAT 98
[2022-12-01] MEDS: oxyCODONE HCl Immed Release 5 MG TABLET 10 MG PO (04:46)
[2022-12-01] MEDS: Levothyroxine Sodium 125 MCG TABLET PO (04:47)
[2022-12-01 06:50] LABS: MANUAL DIFF FLAG NO
[2022-12-01 06:55] LABS: Basophils Absolute Auto 0.1 X10*3/uL (0.0-0.2); Basophils Percent Auto 0.6 % (0-2); Eosinophils Absolute Auto 0.3 X10*3/uL (0.0-0.4); Eosinophils Percent Auto 3.2 % (0-4); Hematocrit 41.3 % (42.0-52.0); Hemoglobin 13.2 g/dl (14.0-18.0); Imm Gran Abs Auto 0.07 X10*3/uL (0.00-0.03); Imm Gran Pct Auto 0.8 % (0.0-0.4); Lymphocytes Absolute Auto 1.3 X10*3/uL (1.2-4.9); Lymphocytes Percent Auto 15.9 % (20-40); Mean Corpuscular Hemoglobin 33.4 pg (27.0-33.0); Mean Corpuscular Volume 104.6 fL (80.0-98.0); Mean Platelet Volume 9.4 fL (9.4-12.4); Monocytes Absolute Auto 0.8 X10*3/uL (0.1-1.2); Monocytes Percent Auto 9.5 % (2-11); Neutrophils Absolute Auto 5.9 x10*3/uL (2.0-8.3); Platelet Count 131 X10*3/uL (160-400); Red Blood Count 3.95 X10*6/uL (4.60-5.80); Red Cell Distribution Width 15.5 % (11.0-16.0); White Blood Count 8.4 X10*3/uL (4.8-10.8)
[2022-12-01 07:39] VITALS: BP 161/73; PULSE 74; RESP 20; TEMP 36.3; O2SAT 98
[2022-12-01 07:51] LABS: Alanine Aminotransferase 6 U/L (0-40); Albumin Level 3.8 g/dL (3.5-5.0); Alkaline Phosphatase 91 U/L (39-117); Anion Gap 25 (12-20); Aspartate Amino Transferase 14 U/L (5-37); Bilirubin Total 0.4 mg/dL (0.0-1.0); Blood Urea Nitrogen 79 mg/dL (9-16); Calcium 10.5 mg/dL (8.4-10.2); Carbon Dioxide 20 mmol/L (22-29); Chloride 96 mmol/L (96-108); Estimated Glomerular Filt Rate 5; Glucose Fasting 77 mg/dL (60-99); Potassium 6.5 mmol/L (3.3-5.1); Sodium 134 mmol/L (135-145); Total Protein 7.4 g/dL (6.5-8.0)
[2022-12-01] MEDS: Docusate Sodium 100 MG CAPSULE 200 MG PO (08:24)
[2022-12-01] MEDS: amLODIPine Besylate 10 MG TABLET PO (08:24)
[2022-12-01] MEDS: Sodium Zirconium Cyclosilicate 10 GM POWD.PACK PO (08:24)
[2022-12-01] MEDS: Aspirin 81 MG TAB.CHEW PO (08:24)
[2022-12-01] MEDS: Metoprolol Succinate ER 50 MG TAB.ER.24H PO (08:25)
[2022-12-01] MEDS: Cholecalciferol (Vitamin D3) 25 MCG TABLET PO (08:25)
--- NOTE | 2022-12-01 11:38 | P.DS_ITS ---
DS: Providers Provider Date of Service: 12/01/22 Date of admission: 11/29/22 17:41 Date of discharge: 12/01/22 Primary care physician: Leo Saavedra MD Consults: 11/29/22 17:40 Consult to Nephrology Routine Consulting Provider: [facility] Reason for consultation: Missed dialysis DS: Diagnosis Discharge Diagnosis (1) Acute hyperkalemia: Status: Acute (2) End stage renal disease: Status: Acute DS: Summary Hospital Course Hospital Course: Pt is a 62-year-old male with a PMH significant for?ESRD on hemodialysis M/W/F, hypothyroidism, CAD, HTN, neuropathy, restless leg syndrome, chronic venous stasis ulcers bilaterally of lower legs, and hypothyroidism who presents to the ED with intractable lower leg pain.? Patient has been experiencing pain in his lower extremities for the past 12 years and claims no one's done anything about it. Pain is described as sharp, shooting and radiating up his legs.? For the past few years patient has had chronic stasis ulcers on his lower legs bilaterally.? Patient is followed by wound care clinic for his ulcers, and has recently started seeing a Pain Care Clinic.? Patient also notes that he missed dialysis earlier today due to his leg pain and being in the emergency room.? He admits he has missed dialysis ?a few times? before.? Additionally patient has chronic back and shoulder pain.? Denies chest pain/pressure, palpitations.? No shortness of breath.? Denies fever, chills, nausea, vomiting, abdominal pain. In the ED patient was afebrile, but hypertensive up tot 171/83. Labs were significant for H&H 12.3/37.1, MCV 101.9, potassium 5.4 repeat 6.0, BUN 69, creatinine 10.44, initial troponin 62.8 with repeat 77.9, CRP 1.38, BNP 598. Lactic acid WNL at 1.0.? UA negative for UTI.? Left foot x-ray showed small degenerative calcaneal spurs and moderate to severe atherosclerosis, but negative for acute fractures or evidence of osteomyelitis.? Arterial duplex u ltrasound bilateral lower extremities found mildly asymmetrical elevated arterial velocities in the left anterior tibial and peroneal arteries, suggestive of mild stenosis.? CT of abdomen and pelvis showed no evidence of renal, ureteral, bladder calculi or hydroureteronephrosis.? Did show bilateral renal lesions with suspicion for left lower pole solid lesion, recommended to get initial renal sonographic evaluation.? Also found large fat filled inguinal hernias, right greater than left.? Abdominal ultrasound found cholelithiasis without evidence of acute cholecystitis, also found small interpolar right renal cyst demonstrating likely benign features, not requiring follow-up. EKG demonstrated normal sinus rhythm without evidence of ST elevations or depressions. Pt was treated with morphine, hydromorphone albuterol, lidocaine patch, glaucoma, calcium gluconate, and dextrose. Pt will be admitted to the hospital for missed dialysis and hyperkalemia in the setting of lower leg pain. Hospital course Patient taken urgently to dialysis with some improvement and potassium. Hyperkalemia was treated with volume and Lokelma. On the day of discharge he received an additional dialysis session to comply with his Sunday regimen. He has had a longstanding history of radicular type back pain for which he was taking oxycodone in hospital. He will be given a short script for the same. He can resume his Sunday dialysis schedule as outpatient follow-up with PCP as scheduled Time Spent with Patient Time attestation: Total time managing care of this patient today ____ minutes. Discharge coordination time: Greater than 30 minutes Quality: Safe Use of Opioids Does Pt have an Active Cancer Diagnosis on the Problem List?: No Quality: Stroke Does the patient have a stroke diagnosis?: No Physical Exam Vital Signs: Vital Signs: Last Vital Signs Temp 97.3 F 12/01/22 07:39 Pulse 74 12/01/22 07:39 Resp 20 12/01/22 07:39 BP 161/73 H 12/01/22 07:39 Pulse Ox 98 12/01/22 07:39 O2 Del Method Room Air 12/01/22 07:39 BMI result Body Mass Index 35.2 Const: Other: Awake alert comfortable appearing Resp: Other: Clear to auscultation bilaterally no rales rhonchi or wheezes Cardio: Other: No S4; positive S1-S2; no S3 murmurs rubs or gallops Extrem: Other: No edema bilaterally DS: Data Data Completed and Pending Labs on day of discharge: Laboratory Results - last 24 hr 12/01/22 12/01/22 06:30 06:30 WBC 8.4 RBC 3.95 L Hgb 13.2 L Hct 41.3 L MCV 104.6 H MCH 33.4 H MCHC 32.0 RDW 15.5 Plt Count 131 L MPV 9.4 Immature Gran % (Auto) 0.8 H Neut % (Auto) 70.0 Lymph % (Auto) 15.9 L [place] % (Auto) 9.5 Eos % (Auto) 3.2 Baso % (Auto) 0.6 Lymph # (Auto) 1.3 [place] # (Auto) 0.8 Eos # (Auto) 0.3 Baso # (Auto) 0.1 Abs Immat Gran (auto) 0.07 H Absolute Neuts (auto) 5.9 Absolute Nucleated RBC 0.000 Nucleated RBC % (auto) 0.0 Sodium 134 L Potassium 6.5 H* D Chloride 96 Carbon Dioxide 20 L Anion Gap 25 H BUN 79 H Creatinine 11.26 H* Estim Creat Clear Calc 8.0 Estimated GFR 5 Fasting Glucose 77 Calcium 10.5 H Total Bilirubin 0.4 AST 14 ALT 6 Alkaline Phosphatase 91 Total Protein 7.4 Albumin 3.8 Preliminary micro results at discharge 11/29/22 08:07 Blood Culture - Preliminary Blood - Venous No growth after 48 hours. 11/29/22 08:05 Blood Culture - Preliminary Blood - Venous No growth after 48 hours. Discharge Plan Discharge Anticipated Discharge Date/Time: 12/01/22 11:35 Patient Disposition: Home, Self-Care Discharge Diagnosis: End-stage renal disease with hyperkalemia Referrals: Leo Saavedra MD [Primary Care Provider] - 1 Week Discharge Medications: New oxycodone 5 mg Tablet 10 mg PO Q4H PRN (Reason: Pain, Moderate(Pain Scale 4-6)) Qty: 30 0RF Rx Instructions: Partial Fill upon patient request. Continued amlodipine 10 mg tablet 10 mg PO DAILY Qty: 30 3RF metoprolol succinate 50 mg tablet extended release 24 hr 1 tab PO DAILY levothyroxine 125 mcg tablet 1 tab PO QAM Velphoro 500 mg tablet,chewable 1,500 mg PO BID aspirin 81 mg Tablet,Chewable 81 mg PO DAILY docusate sodium 100 mg Tablet 200 mg PO DAILY cholecalciferol (vitamin D3) 25 mcg (1,000 unit) Tablet 25 mcg PO DAILY omega 4-agj-dym-fish oil [Fish Oil] 1,000 mg (120 mg-180 mg) Capsule 1 cap PO DAILY Discharge Orders: Discharge Order (Routine); Ordered 12/01/22 Ordered By: Francisco García Diet: Advance to usual diet Activity on Discharge: As tolerated Stand Alone Forms: Patient Portal Discharge page Care Plan Goals: Resume home medicine as taken prior to hospitalization Health Concerns: Oxycodone 5 mg 1-2 every 4 hours as needed for pain Plan of Treatment: Follow-up with dialysis as scheduled Assessment: See discharge summary Patient Instructions: Leg Pain (ED)
--- NOTE | 2022-12-01 14:15 | MHC.CM.PN ---
Pt medically cleared for D/C home with resumption of [facility], pt will arrange for his own transport home.
--- NOTE | 2022-12-01 15:01 | W.PM.DNNEP ---
Subjective Subjective This patient was seen during dialysis. Interval history: Notes improvement after dialysis; pain control adequate on current regiment. Patient has a longstanding history of radicular type pain Physical Exam Vital Signs: Vital Signs: Last Vital Signs Temp 97.3 F 12/01/22 07:39 Pulse 74 12/01/22 07:39 Resp 20 12/01/22 07:39 BP 161/73 H 12/01/22 07:39 Pulse Ox 98 12/01/22 07:39 O2 Del Method Room Air 12/01/22 07:39 BMI result Body Mass Index 35.2 Const: Other: Awake alert comfortable appearing Resp: Other: Clear to auscultation bilaterally no rales rhonchi or wheezes Cardio: Other: No S4; positive S1-S2; no S3 murmurs rubs or gallops Extrem: Other: No edema bilaterally Assessment & Plan Assessment and plan (1) End stage renal disease: Status: Acute (2) Acute hyperkalemia: Status: Acute Plan ESRD. No overt signs or symptoms of uremia. Continue dialysis 3 times a week. Hyperkalemia We will administer 1 dose of Lokelma. Keep on low-potassium diet. Time Spent With Patient Time: Total time managing care of this patient today ____ minutes. Procedures Date of Service Date of Service: 12/01/22
== END 2022-12-01 15:44 | disposition home or self-care (01) | DRG 640 ==
LOC: HO.ED 14:26 → HO.EDOVER 17:50 → HO.IMC 21:38
PROVIDERS: Physician Assistant; Admitting Provider Student in an Organized Health Care Education/Training Program; Emergency Provider Emergency Medicine; PCP Internal Medicine; Visit Provider Hospitalist
DX: E87.5 Hyperkalemia (principal); N18.6 End stage renal disease; I12.0 Hypertensive chronic kidney disease with stage 5 chronic kidney disease or end stage renal disease; F33.1 Major depressive disorder, recurrent, moderate; L97.829 Non-pressure chronic ulcer of other part of left lower leg with unspecified severity; L97.819 Non-pressure chronic ulcer of other part of right lower leg with unspecified severity; E03.9 Hypothyroidism, unspecified; I25.10 Atherosclerotic heart disease of native coronary artery without angina pectoris; I87.2 Venous insufficiency (chronic) (peripheral); Z20.822 Contact with and (suspected) exposure to COVID-19; Z99.2 Dependence on renal dialysis; Z91.158 Patient's noncompliance with renal dialysis for other reason; Z95.1 Presence of aortocoronary bypass graft; Z79.82 Long term (current) use of aspirin; Z79.890 Hormone replacement therapy; Z79.899 Other long term (current) drug therapy
CPT/HCPCS: 36415; 71101; 73620; 74176; 76705; 80048; 80053; 81001; 82550; 83605; 83690; 83735; 83880; 84132; 84484; 85025; 85027; 85379; 86140; 87040; 87205; 87635; 90999; 93005; 93925; 94640; 99285; J0613; J1170; J1643; J2270

== ENCOUNTER → 2022-11-29 17:41 | Outpatient (BNV) | payer MEDICARE, MEDICAID, SELFPAY | PROVIDERS: Admitting Provider Student in an Organized Health Care Education/Training Program; Emergency Provider Emergency Medicine; PCP Internal Medicine; Visit Provider Student in an Organized Health Care Education/Training Program | DX: N18.6 End stage renal disease (principal); E87.5 Hyperkalemia | CPT/HCPCS: 99223; 99233; 99239 ==

== ENCOUNTER 2022-12-08 07:19 | Emergency (ER) | payer MEDICARE, MEDICAID, SELFPAY ==
--- NOTE | ~2022-12-08 | CT_ITS ---
EXAMINATION: CT ABDOMEN AND PELVIS WITHOUT CONTRAST CLINICAL INFORMATION: Right flank pain COMPARISON: Ultrasound abdomen from 11/29/2022, CT abdomen from 11/29/2022 TECHNIQUE: Multidetector volumetric imaging was performed from the superior aspect of the liver through the pubic symphysis. Sagittal and coronal reformatted images were obtained on the technologist's workstation. This CT examination was performed using dose optimization techniques as appropriate, variously including the following: *Automated exposure control *Adjustment of mA and/or kV according to patient size (this includes techniques or standardized protocols for targeted exams where dose is matched to indication/reason for exam; i.e. extremities or head) *Use of iterative reconstruction technique DLP: 722 mGy-cm FINDINGS: LUNG BASES: Left basilar atelectasis. No pneumothorax. No large pleural effusion. LIVER, GALLBLADDER, AND BILIARY TREE: The liver is normal in size, shape, and attenuation. No focal hepatic lesion or biliary ductal dilatation is present. Cholelithiasis without wall thickening or pericholecystic fluid. PANCREAS: Mild fatty infiltration of the pancreas. SPLEEN: Pain is borderline enlarged measuring 13.5 cm ADRENAL GLANDS: Unremarkable. KIDNEYS AND URETERS: Bilateral renal cortical atrophy. Simple appearing cystic focus along the posterior aspect of the right measuring 7 mm, not requiring follow-up. Multiple exophytic foci along the left renal interpolar region at its lateral aspect demonstrating 25 Hounsfield units measuring up to 2.5 cm, possibly representing complicated/proteinaceous cyst though incompletely evaluated. No nephrolithiasis or hydronephrosis. GASTROINTESTINAL TRACT: Small hiatal hernia. Colonic diverticulosis without acute diverticulitis. The small and large bowel are unremarkable. The appendix is unremarkable and demonstrate cranial course along the lateral right hepatic lobe (series 2, image [id number]). ABDOMINAL WALL/BLADDER: Large bilateral fat filled hernias, right greater than left measuring up to 6.6 cm on the right and 5.0 cm left. The right superior lateral dome of the urinary bladder tracks into the large right inguinal hernia. LYMPH NODES: A few mildly prominent though nonenlarged lymph nodes are noted in the periaortic, aortocaval and mesenteric regions. VASCULAR: Duplicated IVC. Abdominal aorta is not aneurysmal. PELVIC VISCERA: Prostate measures up to 3.9 cm with coarse calcifications within its body. OSSEOUS STRUCTURES: Sternotomy wires. Multilevel degenerative changes of the thoracolumbar spine. Slight anterior wedging of T11, stable. CT/CT abdomen pelvis wo IV con IMPRESSION: 1. No acute process of the abdomen or pelvis identified. 2. Large bilateral fat filled hernias, right greater than left measuring up to 6.6 cm on the right and 5.0 cm left. The right superior lateral dome of the urinary bladder tracks into the large right inguinal hernia. 3. Cholelithiasis without acute cholecystitis. 4. Bilateral renal cortical atrophy. Multiple exophytic foci along the left renal interpolar region at its lateral aspect demonstrating 25 Hounsfield units measuring up to 2.5 cm, possibly representing complicated/proteinaceous cysts though incompletely evaluated. 5. Small hiatal hernia. 6. Colonic diverticulosis without acute diverticulitis.
[2022-12-08 07:29] VITALS: BP 140/63; PULSE 67; RESP 20; TEMP 36.6; O2SAT 100; BMI 34.6
--- NOTE | 2022-12-08 07:41 | ED_ITS ---
HPI - Male Genitourinary General Chief complaint: Urogenital-Male Stated complaint: RT SIDE FLNK PAIN Time Seen by Provider: 12/08/22 07:31 Source: patient and old records reviewed Mode of arrival: EMS Limitations: no limitations History of Present Illness HPI Narrative: 62 yo male with hx of HTN, CKD On HD MWF though missed HD On W and only had one hour today. He missed sunday due to chronic leg pain x several months and today due to R flank pain that started this AM with some nausea. He denies fevers, he makes urine still denies changes. He states pain hurts to move but pain is deep inside on R and he has had kidney stones in the past. MD Complaint: other (flank pain) Onset (ago): hour(s) (few) Duration: progressively worsening Location: right flank Severity: severe Quality: sharp and stabbing Relieving factors: none Exacerbating factors: movement Associated symptoms: Reports nausea/vomiting Related Data Home Medications Medication Instructions Recorded Confirmed levothyroxine 125 mcg tablet 1 tab PO QAM 01/18/22 11/29/22 metoprolol succinate 50 mg 1 tab PO DAILY 01/18/22 11/29/22 tablet,extended release 24 hr aspirin 81 mg chewable tablet 81 mg PO DAILY 11/29/22 11/29/22 cholecalciferol (vitamin D3) 25 25 mcg PO DAILY 11/29/22 11/29/22 mcg (1,000 unit) tablet docusate sodium 100 mg tablet 200 mg PO DAILY 11/29/22 11/29/22 omega 2-rhh-uht-fish oil 1,000 mg 1 cap PO DAILY 11/29/22 11/29/22 (120 mg-180 mg) capsule (Fish Oil) sucroferric oxyhydroxide 500 mg 1,500 mg PO BID 11/29/22 11/29/22 chewable tablet (Velphoro) Previous Rx's Medication Instructions Recorded amlodipine 10 mg tablet 10 mg PO DAILY #30 tabs 09/23/20 oxycodone 15 mg tablet 15 mg PO BID PRN pain #30 tabs 12/01/22 Allergies Allergy/AdvReac Type Severity Reaction Status Date / Time prednisone AdvReac Unknown shortness Verified 12/08/22 07:29 of breath zolpidem AdvReac Hallucinati Verified 12/08/22 07:29 ons Review of Systems Review of Systems: Constitutional : No Fever, No Chills ENT/Mouth : No sore throat Eyes: No Eye Pain, No Swelling, No Redness Cardiovascular : No Chest Pain, No SOB Respiratory : No Cough, No Sputum, No Wheezing Gastrointestinal : positive Nausea, no Vomiting, No Diarrhea, positive flank pain Genitourinary : no Dysuria, no urinary frequency, no Hematuria, positive Flank Pain Musculoskeletal : No joint pain, No Myalgias Skin : No Skin Lesions, No rash Neuro : No Weakness, No Numbness, No Headache Psych : No Anxiety/Panic, No Depression All other systems reviewed and are negative [facility] Past Medical History Attestation statement: The following information was validated with the patient. Medical History Acquired hypothyroidism Acute renal failure on dialysis Atherosclerosis of [place] coronary artery of [place] heart without angina pectoris Blind right eye Chronic diastolic heart failure Chronic gout due to renal impairment Chronic kidney disease Edema End stage renal disease ESRD on dialysis Essential hypertension Foot pain, bilateral Gout Hallucinations HTN (hypertension) Hyperlipidemia Impacted cerumen of left ear Impaired fasting glucose Iron deficiency anemia Moderate episode of recurrent major depressive disorder Neuropathy Normocytic anemia Obesity, Class II, BMI 35-39.9 Polyp of colon, adenomatous Restless leg syndrome Seasonal allergic rhinitis due to pollen Sensory neuropathy Sleep apnea Stasis dermatitis of both legs Thrombocytopenia Surgical History History of coronary artery bypass graft Social History Social History Household Members: None Housing: Apartment Do you presently have visiting nurse or other home services: Yes Alcohol intake: never Patient Tobacco Use Status: Never used Tobacco Advance Directives: No Advance Directives Information Provided: Yes service: No Physical Exam Vital Signs: Vital Signs: Last Vital Signs Temp 98 F 12/08/22 07:29 Pulse 68 12/08/22 09:09 Resp 18 12/08/22 09:09 BP 140/68 H 12/08/22 09:09 Pulse Ox 94 12/08/22 09:09 O2 Del Method Room Air 12/08/22 09:09 BMI result Body Mass Index 34.6 Appearance: Alert. Oriented X3. mild acute distress. anxious in pain Eyes: R eye removed surgically, L pupil ERRL ENT: Pharynx normal. Neck: Normal inspection. Neck supple. CVS: Normal heart rate and rhythm. Pulses normal. Respiratory: No respiratory distress. Breath sounds normal. Abdomen: Soft and non-tender. Back: no rash has some mild R CVA ttp Skin: Skin warm and dry. Normal skin color. Normal skin turgor. Extremities: No lower extremity edema. legs are restless, R UE AVF + thrill Neuro: Oriented X 3. No motor deficit. No sensory deficit. Course Course Course Narrative: pain is better with IV dilaudid will repeat dose and give lidocaine patch pain worse with movemts suspect MSK strain no b/b incontinence no saddle anesthesia no CE syndrome Reevaluation(s) Reevaluation #1: no pain or issues in either groin at hernia sites Medications Administered Discontinued Medications Generic Name Dose Route Start Last Admin Trade Name Freq PRN Reason Stop Dose Admin Hydromorphone HCl 1 mg 12/08/22 07:40 12/08/22 07:56 Hydromorphone Hcl 1 Mg/Ml Syringe IVPUSH 12/08/22 07:41 1 mg ONCE ONE Administration Protocol Hydromorphone HCl 1 mg 12/08/22 09:23 12/08/22 09:31 Hydromorphone Hcl 1 Mg/Ml Syringe IVPUSH 12/08/22 09:24 1 mg ONCE ONE Administration Protocol Lidocaine 1 patch 12/08/22 09:22 12/08/22 09:31 Lidocaine 4 % Patch Adh..Patch TRANSDERMA 12/08/22 09:23 1 patch ONCE ONE Administration Protocol Ondansetron HCl 4 mg 12/08/22 07:40 12/08/22 07:56 Ondansetron Hcl 4 Mg/2 Ml Vial IVPUSH 12/08/22 07:41 4 mg ONCE ONE Administration Medical Decision Making Medical Decision Making MDM Narrative: 62 yo male with PMH of ESRD on HD MWF, HTN, restless leg syndrome, right eye surgically removed, here with c/o abrupt onset atraumatic R flank pain with nausea. He did miss HD this week due to worsening leg pain - he has pulses states this has been going on for months and he is not taking any neuropathic medications. His R flank pain could be stone or MSK he has no pain to reproduce in the abdomen and abdomen is soft AAA unlikely as is ischemic gut. Will obtain basic labs, UA, CT scan for renal colic, IV dilaudid for pain. Differential Diagnosis Differential Diagnoses: The differential diagnosis associated with the presentation includes renal colic, back strain, mass Admission/Observation Consideration of admission/observation: Escalation of care including admissi on/observation considered feels better wants to go home. has pain medications at home declined. does not want rehab. up and ambulating. Lab Data MDM Lab Attestation statement: I reviewed the patient's lab results. 12/08/22 07:40 12/08/22 07:40 Labs: Lab Results 12/08/22 12/08/22 12/08/22 Range/Units 07:40 07:40 10:27 WBC 6.8 (4.8-10.8) X10*3/uL RBC 3.88 L (4.60-5.80) X10*6/uL Hgb 12.9 L (14.0-18.0) g/dl Hct 38.6 L (42.0-52.0) % MCV 99.5 H (80.0-98.0) fL MCH 33.2 H (27.0-33.0) pg MCHC 33.4 (31.0-36.0) g/dl RDW 14.9 (11.0-16.0) % Plt Count 141 L (160-400) X10*3/uL MPV 8.8 L (9.4-12.4) fL Immature Gran % (Auto) 0.4 (0.0-0.4) % Neut % (Auto) 71.3 (45-73) % Lymph % (Auto) 17.5 L (20-40) % [place] % (Auto) 8.5 (2-11) % Eos % (Auto) 1.9 (0-4) % Baso % (Auto) 0.4 (0-2) % Lymph # (Auto) 1.2 (1.2-4.9) X10*3/uL [place] # (Auto) 0.6 (0.1-1.2) X10*3/uL Eos # (Auto) 0.1 (0.0-0.4) X10*3/uL Baso # (Auto) 0.0 (0.0-0.2) X10*3/uL Abs Immat Gran (auto) 0.03 (0.00-0.03) X10*3/uL Absolute Neuts (auto) 4.9 (2.0-8.3) x10*3/uL Absolute Nucleated RBC 0.000 (0.0-0.012) X10*3/uL Nucleated RBC % (auto) 0.0 (0.0-0.2) /100WBC Sodium 136 (135-145) mmol/L Potassium 5.0 D (3.3-5.1) mmol/L Chloride 92 L (96-108) mmol/L Carbon Dioxide 25 (22-29) mmol/L Anion Gap 24 H (12-20) BUN 66 H (9-16) mg/dL Creatinine 10.40 H* (0.5-1.4) mg/dL Estim Creat Clear Calc 8.6 Estimated GFR 5 Random Glucose 99 (60-115) mg/dL Calcium 10.6 H (8.4-10.2) mg/dL Total Bilirubin 0.3 (0.0-1.0) mg/dL Direct Bilirubin 0.1 (0.0-0.5) mg/dL AST 14 (5-37) U/L ALT 6 (0-40) U/L Alkaline Phosphatase 90 (39-117) U/L Total Protein 7.3 (6.5-8.0) g/dL Albumin 3.9 (3.5-5.0) g/dL Lipase 57 (8-78) U/L Urine Color Yellow Urine Appearance Clear Urine pH 8.0 (5.0-9.0) Ur Specific [place] 1.015 (1.005-1.025) Urine Protein 100 (2+) H (Neg-Trace) mg/dL Urine Glucose (UA) 100 H (Negative) mg/dL Urine Ketones Negative (Negative) mg/dL Urine Blood Trace H (Negative) Urine Nitrite Negative (Negative) Ur Leukocyte Esterase Negative (Negative) Independent Interpretation I performed an independent interpretation of an: EKG and CT Scan (no renal colic) Interpretation: Rate: 64 Rhythm: NSR with 1st degree AVB [place]: left LVH Normal P waves. Normal YULISA. Normal QRS complex. ST T wave : inverted t wave I and aVL, no LEONARDO qTC: normal prior studies: unchanged no acute ischemia The study has been interpreted contemporaneously by me. . Radiology Impression Discussion of test interpretation with radiology: I have reviewed the radiol ogist's reading. Independent Historian Clinical information obtained from an independent historian. History obtained from or confirmed by: EMS External Record Review External record reviewed: Inpatient record Prescription Management I considered prescription management with: Pain Medication (patient has oxycodone at home already) Critical Care Time Critical Care Time Critical Care Time: Yes Total Critical Care Time: 35 Attestation: repeat IV pain medications with improvement. I attest to this time spent taking care of the patient Discharge Plan Discharge Clinical Impression: Acute back pain Qualifiers: Back pain location: low back pain Back pain laterality: right Sciatica presence: without sciatica Qualified Code(s): M54.50 - Low back pain, unspecified Patient Disposition: Home, Self-Care Instructions: Back Pain (ED) Additional Instructions: your CT scan did not show any acute reason for pain - you have no stones. there are incidental findings below but these are not the cause of your pain. you can talk to your doctor about it. Please take your oxycodone as needed for pain. return for weakness, numbness, worsening pain, loss of control of bowel or bladder or any other concers. talk to your doctor about your back pain in the next week you may need physical therapy. IMPRESSION: 1.? No acute process of the abdomen or pelvis identified. 2.? Large bilateral fat filled hernias, right greater than left measuring up to 6.6 cm on the right and 5.0 cm left. The right superior lateral dome of the urinary bladder tracks into the large right inguinal hernia. 3.? Cholelithiasis without acute cholecystitis. 4.? Bilateral renal cortical atrophy. Multiple exophytic foci along the left renal interpolar region at its lateral aspect demonstrating 25 Hounsfield units measuring up to 2.5 cm, possibly representing complicated/proteinaceous cysts though incompletely evaluated. 5.? Small hiatal hernia. 6.? Colonic diverticulosis without acute diverticulitis. Prescriptions: No Action amlodipine 10 mg tablet 10 mg PO DAILY Qty: 30 3RF metoprolol succinate 50 mg tablet extended release 24 hr 1 tab PO DAILY levothyroxine 125 mcg tablet 1 tab PO QAM Velphoro 500 mg tablet,chewable 1,500 mg PO BID aspirin 81 mg Tablet,Chewable 81 mg PO DAILY docusate sodium 100 mg Tablet 200 mg PO DAILY cholecalciferol (vitamin D3) 25 mcg (1,000 unit) Tablet 25 mcg PO DAILY omega 6-vwv-zpf-fish oil [Fish Oil] 1,000 mg (120 mg-180 mg) Capsule 1 cap PO DAILY oxycodone 15 mg tablet 15 mg PO BID PRN (Reason: pain) Qty: 30 0RF Rx Instructions: Partial Fill upon patient request.
[2022-12-08 07:47] LABS: MANUAL DIFF FLAG NO
[2022-12-08 07:54] LABS: Basophils Percent Auto 0.4 % (0-2); Eosinophils Absolute Auto 0.1 X10*3/uL (0.0-0.4); Eosinophils Percent Auto 1.9 % (0-4); Hematocrit 38.6 % (42.0-52.0); Hemoglobin 12.9 g/dl (14.0-18.0); Imm Gran Abs Auto 0.03 X10*3/uL (0.00-0.03); Imm Gran Pct Auto 0.4 % (0.0-0.4); Lymphocytes Absolute Auto 1.2 X10*3/uL (1.2-4.9); Lymphocytes Percent Auto 17.5 % (20-40); Mean Corpuscular HGB Conc 33.4 g/dl (31.0-36.0); Mean Corpuscular Hemoglobin 33.2 pg (27.0-33.0); Mean Corpuscular Volume 99.5 fL (80.0-98.0); Mean Platelet Volume 8.8 fL (9.4-12.4); Monocytes Absolute Auto 0.6 X10*3/uL (0.1-1.2); Monocytes Percent Auto 8.5 % (2-11); Neutrophils Absolute Auto 4.9 x10*3/uL (2.0-8.3); Neutrophils Percent Auto 71.3 % (45-73); Platelet Count 141 X10*3/uL (160-400); Red Blood Count 3.88 X10*6/uL (4.60-5.80); Red Cell Distribution Width 14.9 % (11.0-16.0); White Blood Count 6.8 X10*3/uL (4.8-10.8)
--- NOTE | 2022-12-08 07:55 | ECG_ITS ---
Test Reason : Drug monitoring Blood Pressure : / mmHG Vent. Rate : 064 BPM Atrial Rate : 064 BPM P-R Int : 218 ms QRS Dur : 102 ms QT Int : 434 ms P-R-T Axes : 000 -27 148 degrees QTc Int : 447 ms Sinus rhythm with 1st degree A-V block Minimal voltage criteria for LVH, may be normal variant ( [place] product ) Inferior infarct (cited on or before 29-NOV-2022) ST & T wave abnormality, consider lateral ischemia Abnormal ECG When compared with ECG of 29-NOV-2022 07:38, T wave inversion more evident in Lateral leads Referred By: Aline Park Electronically Signed By:NICHELLE AGUIAR
[2022-12-08] MEDS: HYDROmorphone HCl 1 MG/ML SYRINGE IVPUSH ×2 (07:56→09:31)
[2022-12-08] MEDS: ondansetron HCL 4 MG/2 ML VIAL IVPUSH (07:56)
[2022-12-08 08:14] LABS: Alanine Aminotransferase 6 U/L (0-40); Albumin Level 3.9 g/dL (3.5-5.0); Alkaline Phosphatase 90 U/L (39-117); Anion Gap 24 (12-20); Aspartate Amino Transferase 14 U/L (5-37); Bilirubin Direct 0.1 mg/dL (0.0-0.5); Bilirubin Total 0.3 mg/dL (0.0-1.0); Blood Urea Nitrogen 66 mg/dL (9-16); Calcium 10.6 mg/dL (8.4-10.2); Carbon Dioxide 25 mmol/L (22-29); Chloride 92 mmol/L (96-108); Creatinine Clr Calc Pharmacy 8.6; Estimated Glomerular Filt Rate 5; Glucose Random 99 mg/dL (60-115); Lipase 57 U/L (8-78); Sodium 136 mmol/L (135-145); Total Protein 7.3 g/dL (6.5-8.0)
--- NOTE | 2022-12-08 08:15 | PC.NURSE ---
medicated as ordered for pain, alert, reports improvement in pain, talking on phone, skin wpd, aware of care plan
--- NOTE | 2022-12-08 08:34 | PC.NURSE ---
improvement in pain, awaiting results
[2022-12-08 09:09] VITALS: BP 140/68; PULSE 68; RESP 18; O2SAT 94
[2022-12-08] MEDS: Lidocaine 4 % Patch ADH..PATCH 1 PATCH TRANSDERMA (09:31)
[2022-12-08 10:32] LABS: Appearance Urine Clear; Color Urine Yellow; Glucose Urine UA 100 mg/dL (Negative); Leukocyte Esterase Urine Negative (Negative); Nitrite Urine Negative (Negative); Specific Gravity - Urine 1.015 (1.005-1.025); UMIC TRIGGER UACC YES; Urine Blood Trace (Negative); Urine Ketones Negative (Negative); Urine Protein 100 (2+) mg/dL (Neg-Trace)
[2022-12-08 10:35] LABS: Bacteria Urine None Seen (None Seen); Hyaline Casts Urine 0-2 /LPF (0-2); RBC Urine 0-2 /HPF (0-2); Squamous Epithelial Cell Urine 0-2 /HPF (0-2); WBC Urine 0-5 /HPF (0-5)
--- NOTE | 2022-12-08 11:21 | PC.NURSE ---
pain improved, steady gait, alert, pain w movement still
== END 2022-12-08 11:21 | disposition home or self-care (01) ==
PROVIDERS: Emergency Provider Emergency Medicine; PCP Internal Medicine
DX: M54.50 Low back pain, unspecified (principal); R10.9 Unspecified abdominal pain; M79.605 Pain in left leg; R94.31 Abnormal electrocardiogram [ECG] [EKG]; M79.604 Pain in right leg; Z79.899 Other long term (current) drug therapy
CPT/HCPCS: 36415; 74176; 80048; 80076; 81001; 83690; 85025; 93005; 96374; 96375; 96376; 99284; J1170; J2405

== ENCOUNTER 2023-01-08 14:51 | Outpatient (AMB) | payer OTHER, MEDICAID, SELFPAY ==
[2023-01-08 14:55] VITALS: BP 150/86; PULSE 77; RESP 14; BMI 33.5
--- NOTE | 2023-01-08 14:55 | A.OFFVIS_ITS ---
Intake Vital Signs 01/08/23 14:55 Height 5 ft 9 in Weight 227 lb BMI 33.5 BP 150/86 H Blood Pressure Location Lt brachial Position Sitting Respiration 14 Pulse 77 Pulse Source Pulse Oximeter Intake Visit Reasons: Procedure Discussion Allergies prednisone Adverse Reaction (Unknown, Verified 12/08/22 07:29) shortness of breath zolpidem Adverse Reaction (Verified 12/08/22 07:29) Hallucinations HPI Procedure Discussion HPI Details 62-year-old male who presents today to t he office for a discussion of procedure. The patient has a history of uncontrolled hypertension with subsequent CKD on dialysis and coronary artery disease. He also has a longstanding history of excruciating pain and numbness in his legs associated with burning and blistering. He has had stasis ulcers on his lower extremities for several years, associated with blistering and scabbing on the skin. He states that his pain has been worsening since the last visit. He noticed blisters and burning sensations in his legs on 01/06/23. He was recently seen by vascular surgery at [facility] and cleared from their standpoint in terms of requiring no further vascular intervention. He was referred to Pain Management for symptomatic management. The patient is compliant with wound care guidelines at home. He is currently taking Percocet once daily. He visits on Sunday, Sunday, and Sunday for dialysis treatment, but recently he has not completed his dialysis treatments due to uncontrolled pain. His mother states that the patient is legally blind. [facility] Medical History (Updated 01/09/23 @ 15:27 by Vazquez Gant MD) CKD (chronic kidney disease) Chronic wound Bilateral leg pain Acquired hypothyroidism Hyperlipidemia Obesity, Class II, BMI 35-39.9 Chronic gout due to renal impairment Hallucinations Stasis dermatitis of both legs Iron deficiency anemia ESRD on dialysis Sensory neuropathy Polyp of colon, adenomatous Moderate episode of recurrent major depressive disorder Impaired fasting glucose Restless leg syndrome Impacted cerumen of left ear Foot pain, bilateral Seasonal allergic rhinitis due to pollen Chronic diastolic heart failure Essential hypertension Atherosclerosis of [place] coronary artery of [place] heart without angina pectoris Normocytic anemia Thrombocytopenia Neuropathy Acute renal failure on dialysis End stage renal disease Blind right eye Sleep apnea Gout Edema Chronic kidney disease HTN (hypertension) Surgical History History of coronary artery bypass graft Social History Household Members: None Housing: Apartment Do you presently have visiting nurse or other home services: Yes Alcohol intake: never Patient Tobacco Use Status: Never used Tobacco service: No Review of Systems Const All systems reviewed & are unremarkable except as noted in HPI and below Physical Exam Vital Signs: Last Vital Signs Pulse 77 01/08/23 14:55 Resp 14 01/08/23 14:55 BP 150/86 H 01/08/23 14:55 BMI result Body Mass Index 33.5 General: Appears afebrile. Alert and oriented. Mood and affect appropriate. Follows and participates in conversation appropriately. Respiratory effort is unlabored. Able to transition from sit to stand unassisted. Ambulates with bilaterally normal heel strike and toe off. Painful blister on the right lower nugent. Covered in dressing. Results Reviewed Results Reviewed: No imaging is available for review. Assessment & Plan Assessment & Plan (1) Chronic peripheral neuropathic pain: Code(s): M79.2 - Neuralgia and neuritis, unspecified; G89.29 - Other chronic pain (2) Stasis dermatitis of both legs: Code(s): I87.2 - Venous insufficiency (chronic) (peripheral) Plan Discussed spinal cord stimulators vs. pain pump as a possible treatment options for his neuropathic pain and lower extremities. He will be high risk from an infection standpoint given frequently recurring skin ulcers that provide a conduit to our in his arms to gain access to his bloodstream. Based on that, an intrathecal pump would be a higher risk intervention given the size of the device. Reviewed vascular surgery notes indicating need for symptom control as opposed to vascular intervention for his ongoing uncontrolled pain and skin ulcers. Will place a referral for psychology clearance for implantable pain treatment device. Once we have received psychology clearance, we will plan for SCS trial with a Nevro device. The patient will receive a call from [facility] for the psychology assessment and we will help coordinate the assessment as needed. For time being, I encouraged the patient to follow his wound care guidelines at home. Scribed for Dr. Gant by Jeronimo Lopez, vice president medical affairs, on 01/08/2023. I, Dr. Gant, have personally reviewed and agree with the information entered by the scribe. Coding Level of Care Code Est Pt Level 4 (22802) Diagnoses Chronic peripheral neuropathic pain M79.2; G89.29 Stasis dermatitis of both legs I87.2
== END 2023-01-08 15:17 | disposition home or self-care (01) ==
PROVIDERS: PCP Internal Medicine; Visit Provider Internal Medicine
DX: M79.2 Neuralgia and neuritis, unspecified (principal); G89.29 Other chronic pain; I87.2 Venous insufficiency (chronic) (peripheral)
CPT/HCPCS: 99214

== ENCOUNTER → 2023-01-08 14:51 | Outpatient (BNVA) | payer OTHER, SELFPAY | PROVIDERS: PCP Internal Medicine; Visit Provider Internal Medicine | DX: I87.2 Venous insufficiency (chronic) (peripheral) (principal); M79.2 Neuralgia and neuritis, unspecified; I13.2 Hypertensive heart and chronic kidney disease with heart failure and with stage 5 chronic kidney disease, or end stage renal disease; N18.6 End stage renal disease; N17.9 Acute kidney failure, unspecified; Z99.2 Dependence on renal dialysis | CPT/HCPCS: 99212 ==

== ENCOUNTER 2023-01-29 05:31 | Emergency (ER) | payer OTHER, SELFPAY ==
--- NOTE | 2023-01-29 | ECG_ITS ---
Test Reason : LEFT ARM PAIN Blood Pressure : / mmHG Vent. Rate : 071 BPM Atrial Rate : 071 BPM P-R Int : 216 ms QRS Dur : 088 ms QT Int : 420 ms P-R-T Axes : 054 -14 096 degrees QTc Int : 456 ms Sinus rhythm with 1st degree A-V block Left axis deviation T wave abnormality, consider lateral ischemia Abnormal ECG When compared with ECG of 08-DEC-2022 08:31, No significant change was found Referred By: Generic ED Physician Electronically Signed By:ANNA MARIE BUCK MD
--- NOTE | ~2023-01-29 | XR_ITS ---
EXAMINATION: XR CHEST XR LEFT SHOULDER CLINICAL INFORMATION: Chest pain. Left shoulder pain. COMPARISON: 11/29/2022 TECHNIQUE: PA and lateral views of the chest. AP and Grashey views of the left shoulder. FINDINGS: Chest: The patient is rotated. The lungs are moderately expanded. No focal consolidation. No pleural effusion. Postsurgical changes related to prior cardiac surgery. Cardiac silhouette is enlarged unchanged from prior. Left shoulder: Subacromial joint space narrowing. Soft tissue calcifications along rotator. Hypertrophic changes of the acromioclavicular joint. No displaced fracture or dislocation. XR/XR shoulder LT min 2V IMPRESSION: No acute cardiopulmonary process. Calcific tendinosis of the left shoulder.
--- NOTE | ~2023-01-29 | XR_ITS ---
EXAMINATION: XR CHEST XR LEFT SHOULDER CLINICAL INFORMATION: Chest pain. Left shoulder pain. COMPARISON: 11/29/2022 TECHNIQUE: PA and lateral views of the chest. AP and Grashey views of the left shoulder. FINDINGS: Chest: The patient is rotated. The lungs are moderately expanded. No focal consolidation. No pleural effusion. Postsurgical changes related to prior cardiac surgery. Cardiac silhouette is enlarged unchanged from prior. Left shoulder: Subacromial joint space narrowing. Soft tissue calcifications along rotator. Hypertrophic changes of the acromioclavicular joint. No displaced fracture or dislocation. XR/XR chest 2V IMPRESSION: No acute cardiopulmonary process. Calcific tendinosis of the left shoulder.
[2023-01-29 05:58] VITALS: BP 175/87; PULSE 71; RESP 16; TEMP 36.9; O2SAT 99; BMI 34.7
[2023-01-29 06:27] LABS: Hematocrit 35.9 % (42.0-52.0); Hemoglobin 11.8 g/dl (14.0-18.0); Mean Corpuscular HGB Conc 32.9 g/dl (31.0-36.0); Mean Corpuscular Hemoglobin 32.7 pg (27.0-33.0); Mean Corpuscular Volume 99.4 fL (80.0-98.0); Mean Platelet Volume 9.6 fL (9.4-12.4); Platelet Count 136 X10*3/uL (160-400); Red Blood Count 3.61 X10*6/uL (4.60-5.80); Red Cell Distribution Width 13.5 % (11.0-16.0); White Blood Count 10.6 X10*3/uL (4.8-10.8)
--- NOTE | 2023-01-29 06:36 | PC.NURSE ---
pt ambulatory from triage reporting LUE pain onset yesterday morning; unsure of injury states maybe rolled on arm while sleeping. +pulses of BUE and BLE. strength strong equal BUE. neuros intact. BLE cellulitis pt states being treated by wound care. pt was scheduled for dialysis this am - I did not feel well to go so I came in to er. +bruit/thrill. iv established ekg obtained labs drawn. call randhawa within reach.
--- NOTE | 2023-01-29 06:36 | ED.EXTPRO ---
HPI - Extremity Problem General Chief complaint: Extremity Injury, Upper Stated complaint: can't move left arm Time Seen by Provider: 01/29/23 06:27 Source: patient and RN notes reviewed Mode of arrival: ambulatory Limitations: no limitations History of Present Illness HPI Narrative: This is a 62-year-old male, with a past medical history of hypertension, chronic kidney disease on hemodialysis (M,W,F), heart failure, hypertension, hyperlipidemia, hypothyroidism and CABG May 2019, presenting to the emergency department with complaints of atraumatic left shoulder pain since upon awakening yesterday morning. He states that the pain is severe and is constant. He states that the pain starts in his left shoulder and radiates down just before his right elbow. Denies history of similar symptoms in the past. Denies any headaches, blurred vision, chest pain, shortness of breath, palpitations, abdominal pain, nausea, vomiting or diarrhea. He took oxycodone 15 mg yesterday and this morning which is prescribed to him however this did not provide him with any relief. He is not on blood thinners. No other complaints or concerns at this time. MD Complaint: extremity pain Onset (ago): day(s) Pain Consistency: constant Location: left and upper extremity Quality: stabbing and aching Relieving factors: nothing Exacerbating factors: nothing Associated symptoms: denies other symptoms Related Data Home Medications Medication Instructions Recorded Confirmed levothyroxine 125 mcg tablet 1 tab PO QAM 01/18/22 11/29/22 metoprolol succinate 50 mg 1 tab PO DAILY 01/18/22 11/29/22 tablet,extended release 24 hr aspirin 81 mg chewable tablet 81 mg PO DAILY 11/29/22 11/29/22 cholecalciferol (vitamin D3) 25 25 mcg PO DAILY 11/29/22 11/29/22 mcg (1,000 unit) tablet docusate sodium 100 mg tablet 200 mg PO DAILY 11/29/22 11/29/22 omega 7-cll-fcr-fish oil 1,000 mg 1 cap PO DAILY 11/29/22 11/29/22 (120 mg-180 mg) capsule (Fish Oil) sucroferric oxyhydroxide 500 mg 1,500 mg PO BID 11/29/22 11/29/22 chewable tablet (Velphoro) Previous Rx's Medication Instructions Recorded amlodipine 10 mg tablet 10 mg PO DAILY #30 tabs 06/17/21 oxycodone 15 mg tablet 15 mg PO BID PRN pain #30 tabs 12/01/22 Allergies Allergy/AdvReac Type Severity Reaction Status Date / Time prednisone AdvReac Unknown shortness Verified 12/08/22 07:29 of breath zolpidem AdvReac Hallucinati Verified 12/08/22 07:29 ons Review of Systems Review of Systems: Yes all other systems are reviewed and are negative Constitutional: Constitutional: Reports as per [facility] Past Medical History Attestation statement: The following information was validated with the patient. Medical History CKD (chronic kidney disease) Chronic wound Bilateral leg pain Acquired hypothyroidism Hyperlipidemia Obesity, Class II, BMI 35-39.9 Chronic gout due to renal impairment Hallucinations Stasis dermatitis of both legs Iron deficiency anemia ESRD on dialysis Sensory neuropathy Polyp of colon, adenomatous Moderate episode of recurrent major depressive disorder Impaired fasting glucose Restless leg syndrome Impacted cerumen of left ear Foot pain, bilateral Seasonal allergic rhinitis due to pollen Chronic diastolic heart failure Essential hypertension Atherosclerosis of [place] coronary artery of [place] heart without angina pectoris Normocytic anemia Thrombocytopenia Neuropathy Acute renal failure on dialysis End stage renal disease Blind right eye Sleep apnea Gout Edema Chronic kidney disease HTN (hypertension) Surgical History History of coronary artery bypass graft Social History Social History Household Members: None Housing: Apartment Do you presently have visiting nurse or other home services: Yes Alcohol intake: never Patient Tobacco Use Status: Never used Tobacco Smoked in Last 30 Days: No Use of substances other than those prescribed or required for medical reasons: No Advance Directives: No Advance Directives Information Provided: No service: No Physical Exam Vital Signs: Vital Signs: Last Vital Signs Temp 97.7 F 01/29/23 10:38 Pulse 57 01/29/23 10:38 Resp 12 01/29/23 10:38 BP 139/65 01/29/23 10:38 Pulse Ox 100 01/29/23 10:38 O2 Del Method Room Air 01/29/23 10:38 BMI result Body Mass Index 34.7 Const: General: cooperative, comfortable and no acute distress Orientation/consciousness: patient oriented x3 Limitations: no limitations HEENT: Head: Yes normal to inspection, Yes normocephalic and Yes atraumatic Ears: hearing grossly normal bilaterally General nose exam: Normal external nose present Face and sinus: Yes normal facial exam Mouth: Normal oral and palatal mucosa present, oropharynx normal and moist mucous membranes Throat: Yes posterior oropharynx normal Eyes: General: appearance normal, both eyes and all related structures Eyelids: Yes eyelids normal Conjunctivae: conjunctivae normal Sclerae: sclerae normal Pupils: Equal, round and reactive pupils present EOM: EOMs intact bilaterally Neck: Neck: Yes normal visual inspection, Yes full ROM and Yes no lymphadenopathy Lymphatic: no lymphadenopathy noted Chest: Chest palpation & inspection: normal inspection of the chest Resp: Effort & Inspection: normal respiratory effort and able to speak in complete sentences Auscultation: clear to auscultation bilaterally, no crackles, no rales, no rhonchi and no wheezes Cardio: Rate: regular rate Rhythm: regular rhythm Heart sounds: S1 normal heart sound present and S2 normal heart sound present GI: Other: Abdomen is soft nontender. Inspection: Yes normal to inspection Skin: General skin exam: no rashes or lesions noted Trauma: no lacerations or abrasions Wounds: no wounds Neuro: General: patient oriented x3 and moves all extremities Cranial nerves: Yes Equal, round and reactive pupils present Extrem: Other: Chronic venous stasis changes to the lower extremities. Left shoulder without any bony abnormalities. Mild tenderness to palpation along the AC joint, pain worsening with movement and positional changes. Limited ROM secondary to pain. General: Yes normal to inspection Right upper extremity: normal to inspection Left upper extremity: normal to inspection Right lower extremity: normal to inspection Left lower extremity: normal to inspection Course Reevaluation(s) Reevaluation #1: Creatinine 11.03. Troponin 46.9. Time: 07:10 Reevaluation #2: Second troponin returns, troponin flat at 45.7, no delta change. Patient has had elevated troponins in the past. Patient's potassium 5.3, with a creatinine of 11.03, will need dialysis today. X-ray of his left shoulder revealing calcific tendinosis, I discussed these results with patient. Pt understands. Given return precautions. Will be d/c to go to dialysis. Time: 10:12 Medications Administered Discontinued Medications Generic Name Dose Route Start Last Admin Trade Name Lisa PRN Reason Stop Dose Admin Morphine Sulfate 4 mg 01/29/23 06:36 01/29/23 07:47 Morphine Sulfate 4 Mg/Ml Cartridge IVPUSH 01/29/23 06:37 4 mg ONCE ONE Administration Protocol Oxycodone HCl 15 mg 01/29/23 10:17 01/29/23 11:03 Oxycodone Hcl Immed Release 15 Mg Tablet PO 01/29/23 10:18 15 mg ONCE ONE Administration Medical Decision Making Medical Decision Making [facility] Narrative: This is a 62-year-old male, with a past medical history of hypertension, chronic kidney disease on hemodialysis (M,W,F), heart failure, hypertension, hyperlipidemia, hypothyroidism and CABG May 2019, presenting to the emergency department with complaints of atraumatic left shoulder pain since yesterday. On arrival to the emergency room, blood pressure elevated at 175/87, all other vital signs within normal limits. Patient is nontoxic appearing. Given substantial past medical history, concern for ACS is high, however given exam findings of left shoulder pain worsening with palpation and movement >MSK/arthritis also high on the differential. Other differential diagnoses include osteoarthritis, muscle strain, contusion, dislocation, fracture. Plan: Labs, EKG, morphine 4 mg IV Differential Diagnosis Differential Diagnoses: The differential diagnosis associated with the presentation includes See above Admission/Observation Consideration of admission/observation: Escalation of care including admission/observation considered Escalation of care including inpatient observation was considered given significant past medical history Lab Data [facility] Lab Attestation statement: I reviewed the patient's lab results. 01/29/23 06:21 01/29/23 06:21 Labs: Lab Results 01/29/23 01/29/23 Range/Units 06:21 09:41 WBC 10.6 (4.8-10.8) X10*3/uL RBC 3.61 L (4.60-5.80) X10*6/uL Hgb 11.8 L (14.0-18.0) g/dl Hct 35.9 L (42.0-52.0) % MCV 99.4 H (80.0-98.0) fL MCH 32.7 (27.0-33.0) pg MCHC 32.9 (31.0-36.0) g/dl RDW 13.5 (11.0-16.0) % Plt Count 136 L (160-400) X10*3/uL MPV 9.6 (9.4-12.4) fL Absolute Nucleated RBC 0.000 (0.0-0.012) X10*3/uL Nucleated RBC % (auto) 0.0 (0.0-0.2) /100WBC Sodium 138 (135-145) mmol/L Potassium 5.3 H (3.3-5.1) mmol/L Chloride 91 L (96-108) mmol/L Carbon Dioxide 29 (22-29) mmol/L Anion Gap 23 H (12-20) BUN 64 H (9-16) mg/dL Creatinine 11.03 H* (0.5-1.4) mg/dL Estim Creat Clear Calc 8.1 Estimated GFR 5 Random Glucose 95 (60-115) mg/dL Calcium 11.4 H D (8.4-10.2) mg/dL Total Bilirubin 0.5 (0.0-1.0) mg/dL AST 15 (5-37) U/L ALT 9 (0-40) U/L Alkaline Phosphatase 101 (39-117) U/L Troponin I High Sens 46.9 H 45.7 H (<3.5-35.0) ng/L Total Protein 8.4 H (6.5-8.0) g/dL Albumin 4.5 (3.5-5.0) g/dL Independent Interpretation Interpretation: EKG sinus rhythm with 1st degree AV block, one T wave abnormality in aVF, similar appearing EKG from previous in 12/2022. No st elevation or reciprocal changes seen. QTC 456. Radiology Impression Discussion of test interpretation with radiology: I have reviewed the radiologist's reading. Radiologist Impression: CLINICAL INFORMATION: Chest pain. Left shoulder pain. COMPARISON: 11/29/2022 TECHNIQUE: PA and lateral views of the chest. AP and Grashey views of the left shoulder. FINDINGS: Chest: The patient is rotated. The lungs are moderately expanded. No focal consolidation. No pleural effusion. Postsurgical changes related to prior cardiac surgery. Cardiac silhouette is enlarged unchanged from prior. Left shoulder: Subacromial joint space narrowing. Soft tissue calcifications along rotator. Hypertrophic changes of the acromioclavicular joint. No displaced fracture or dislocation. XR/XR shoulder LT min 2V IMPRESSION: No acute cardiopulmonary process. Calcific tendinosis of the left shoulder. Dictated By: Jacquelyn Alberto MD Discharge Plan Discharge Clinical Impression: Calcific tendonitis of left shoulder Patient Disposition: Home, Self-Care Instructions: Calcific Tendinitis (ED) Additional Instructions: You have calcific tendonosis in your left shoulder. This is wear and tear damage to your left shoulder that can cause tenorio and inflammation. Your labs were reassuring. Your given morphine and oxycodone 15 mg by mouth today for pain. Please go to dialysis today. Please continue to gently massage region with gentle range of motion. You may follow-up with Orthopedics, call to make an appointment. If any new or worsening symptoms occur, including but not limited to chest pain, shortness of breath, please return for re-evaluation. Prescriptions: No Action amlodipine 10 mg tablet 10 mg PO DAILY Qty: 30 3RF metoprolol succinate 50 mg tablet extended release 24 hr 1 tab PO DAILY levothyroxine 125 mcg tablet 1 tab PO QAM Velphoro 500 mg tablet,chewable 1,500 mg PO BID aspirin 81 mg Tablet,Chewable 81 mg PO DAILY docusate sodium 100 mg Tablet 200 mg PO DAILY cholecalciferol (vitamin D3) 25 mcg (1,000 unit) Tablet 25 mcg PO DAILY omega 6-vam-vkp-fish oil [Fish Oil] 1,000 mg (120 mg-180 mg) Capsule 1 cap PO DAILY oxycodone 15 mg tablet 15 mg PO BID PRN (Reason: pain) Qty: 30 0RF Rx Instructions: Partial Fill upon patient request. [place]: [facility] [place]Provider Group] Interventions: ED Discharge Assessment Last Done: 01/29/23 11:30 Discharge Date/Time: 01/29/23 11:31
[2023-01-29 06:47] LABS: Troponin-I High Sensitivity 46.9 ng/L (<3.5-35.0)
[2023-01-29 06:58] LABS: Alanine Aminotransferase 9 U/L (0-40); Albumin Level 4.5 g/dL (3.5-5.0); Alkaline Phosphatase 101 U/L (39-117); Anion Gap 23 (12-20); Aspartate Amino Transferase 15 U/L (5-37); Bilirubin Total 0.5 mg/dL (0.0-1.0); Blood Urea Nitrogen 64 mg/dL (9-16); Calcium 11.4 mg/dL (8.4-10.2); Carbon Dioxide 29 mmol/L (22-29); Chloride 91 mmol/L (96-108); Glucose Random 95 mg/dL (60-115); Potassium 5.3 mmol/L (3.3-5.1); Sodium 138 mmol/L (135-145); Total Protein 8.4 g/dL (6.5-8.0)
[2023-01-29 06:59] LABS: Creatinine Clr Calc Pharmacy 8.1; Estimated Glomerular Filt Rate 5
[2023-01-29 07:36] VITALS: BP 158/86; PULSE 61; RESP 12; TEMP 36.6; O2SAT 99
[2023-01-29 07:47] VITALS: RESP 12
[2023-01-29] MEDS: Morphine Sulfate 4 MG/ML CARTRIDGE IVPUSH (07:47)
--- NOTE | 2023-01-29 09:10 | MHC.EDTECH ---
Pt ambulated to bathroom with t/w. Pt back into bed, call randhawa within reach.
--- NOTE | 2023-01-29 09:40 | PC.NURSE ---
assumed care of pt at 0700. pt a&o x4, pleasant, calm, and cooperative. resting quietly on stretcher in no apparent distress. pt reporting 10/10 pain with no relief from administered medication. x-ray taken of left arm/shoulder. currently watching tv, call randhawa within pt reach. plan of care ongoing.
[2023-01-29 10:06] LABS: Troponin-I High Sensitivity 45.7 ng/L (<3.5-35.0)
[2023-01-29 10:38] VITALS: BP 139/65; PULSE 57; RESP 12; TEMP 36.5; O2SAT 100
[2023-01-29] MEDS: oxyCODONE HCl Immed Release 15 MG TABLET PO (11:03)
== END 2023-01-29 11:31 | disposition home or self-care (01) ==
PROVIDERS: Physician Assistant Medical; Emergency Provider Emergency Medicine
DX: M75.32 Calcific tendinitis of left shoulder (principal); R07.89 Other chest pain; M25.512 Pain in left shoulder; I10 Essential (primary) hypertension; I25.10 Atherosclerotic heart disease of native coronary artery without angina pectoris; Z79.899 Other long term (current) drug therapy
CPT/HCPCS: 36415; 71046; 73030; 80053; 84484; 85027; 93005; 96374; 99284; 99285; J2270

== ENCOUNTER 2023-10-08 06:10 | Inpatient (IN) | payer OTHER, SELFPAY ==
[2023-10-08] VITALS (7 sets, daily range): BP systolic 119–182; BP diastolic 46–102; PULSE 56–79; RESP 16–18; TEMP 35.8–37; O2SAT 99–100; BMI 30.1
--- NOTE | 2023-10-08 07:17 | ED.GENADULT ---
HPI - General Adult General Chief complaint: Extremity Problem Stated complaint: chronic leg pain Time Seen by Provider: 10/08/23 07:11 Source: patient and EMS Mode of arrival: EMS Limitations: no limitations History of Present Illness ED Provider: Dr. Harris HPI narrative: Patient with chronic leg wounds, ulcerations and leg pain. Patient has a history of HTN and ESRD on dialysis, his leg wounds are old and has had them for years. Onset (ago): year(s) Location: left, right and lower extremity Severity: mild Related Data Home Medications ?Medication ?Instructions ?Recorded ?Confirmed levothyroxine 125 mcg tablet 1 tab PO QAM 01/18/22 11/29/22 metoprolol succinate 50 mg 1 tab PO DAILY 01/18/22 11/29/22 tablet,extended release 24 hr aspirin 81 mg chewable tablet 81 mg PO DAILY 11/29/22 11/29/22 cholecalciferol (vitamin D3) 25 25 mcg PO DAILY 11/29/22 11/29/22 mcg (1,000 unit) tablet docusate sodium 100 mg tablet 200 mg PO DAILY 11/29/22 11/29/22 omega 4-twb-ghb-fish oil 1,000 mg 1 cap PO DAILY 11/29/22 11/29/22 (120 mg-180 mg) capsule (Fish Oil) sucroferric oxyhydroxide 500 mg 1,500 mg PO BID 11/29/22 11/29/22 chewable tablet (Velphoro) Previous Rx's ?Medication ?Instructions ?Recorded amlodipine 10 mg tablet 10 mg PO DAILY #30 tabs 09/23/20 oxycodone 15 mg tablet 15 mg PO BID PRN pain #30 tabs 12/01/22 doxycycline monohydrate 100 mg 100 mg PO BID #20 caps 10/08/23 capsule Allergies Allergy/AdvReac Type Severity Reaction Status Date / Time prednisone AdvReac Unknown shortness Verified 10/08/23 06:30 of breath zolpidem AdvReac Hallucinati Verified 10/08/23 06:30 ons Review of Systems Review of Systems: Yes all other systems are reviewed and are negative Neurologic: Denies Sensory deficit (Neuro) PMFSH Past Medical History Medical History CKD (chronic kidney disease) Chronic wound Bilateral leg pain Acquired hypothyroidism Hyperlipidemia Obesity, Class II, BMI 35-39.9 Chronic gout due to renal impairment Hallucinations Stasis dermatitis of both legs Iron deficiency anemia ESRD on dialysis Sensory neuropathy Polyp of colon, adenomatous Moderate episode of recurrent major depressive disorder Impaired fasting glucose Restless leg syndrome Impacted cerumen of left ear Foot pain, bilateral Seasonal allergic rhinitis due to pollen Chronic diastolic heart failure Essential hypertension Atherosclerosis of [place] coronary artery of [place] heart without angina pectoris Normocytic anemia Thrombocytopenia Neuropathy Acute renal failure on dialysis End stage renal disease Blind right eye Sleep apnea Gout Edema Chronic kidney disease HTN (hypertension) Surgical History History of coronary artery bypass graft Social History Social History Household Members: None Housing: Apartment Do you presently have visiting nurse or other home services: Yes Alcohol intake: never Patient Tobacco Use Status: Never used Tobacco Advance Directives: No Advance Directives Information Provided: No service: No Physical Exam ED Vital Signs: Vital Signs - 24 hr 10/08/23 06:26 Temperature 98 F Pulse Rate 61 Respiratory Rate 16 Blood Pressure 119/46 L Pulse Oximetry 99 Oxygen Delivery Method Room Air BMI result Body Mass Index 30.1 Const Other: male chronically ill appearing looking older than stated age, no acute distress Orientation/consciousness: oriented to person and patient oriented x3 Limitations: no limitations HENMT Head: Yes normal to inspection Ears: external ears normal General nose exam: Normal external nose present Mouth: Normal oral and palatal mucosa present and oropharynx normal Throat: Yes posterior oropharynx normal Eyes General: appearance normal, both eyes and all related structures Neck Neck: Yes normal visual inspection Chest Chest palpation & inspection: normal inspection of the chest Resp Auscultation: clear to auscultation bilaterally Cardio Other: 3/6 GAIL Jugular venous distension: no JVD Rate: regular rate Rhythm: regular rhythm GI Inspection: Yes normal to inspection Palpation (GI): Soft to palpation, nontender and No hepatosplenomegaly present Auscultation: normal bowel sounds General: Yes no CVA tenderness Back/Spine/Pelvis Back: no CVA tenderness Skin Other: legs are warm and pink, bilateral chronic leg changes, bilateral scabbing and ulcerations to legs with slight erythema surrounding wounds. Neuro General: oriented to person and patient oriented x3 Cranial nerves: Yes CN's II-XII intact bilaterally Motor exam (neuro): 5/5 motor strength present throughout Sensory Exam: No Sensory deficit (Neuro) Extrem General: Yes normal to inspection Psych Appearance: grossly normal Course Reevaluation(s) Reevaluation #1: will place patient on doxy for maybe cellulitis and send directly to dialysis this morning. Patient with elevated potassium and creatinine, bicarb is 28 Time: 08:09 Medications Administered Discontinued Medications Generic Name Dose Route Start Last Admin Trade Name Lisa PRN Reason Stop Dose Admin Doxycycline Monohydrate 100 mg 10/08/23 07:22 10/08/23 08:08 Doxycycline Monohydrate 100 Mg Capsule PO 10/08/23 07:23 100 mg ONCE ONE Administration Silver Sulfadiazine 1 appl 10/08/23 07:23 10/08/23 08:08 Silver Sulfadiazine 1 % Cream 20 Gm Tube TOPICAL 10/08/23 07:24 1 appl ONCE ONE Administration Medical Decision Making Differential Diagnosis Differential Diagnoses: The differential diagnosis associated with the presentation includes (cellulitis, chronic venous stasis, renal failure, hyperkalemia) Admission/Observation Consideration of admission/observation: Escalation of care including admission/observation considered (upon arrival patient considered for admission) Lab Data MDM Lab Attestation statement: I reviewed the patient's lab results. 10/08/23 07:48 10/08/23 07:48 Labs: Lab Results 10/08/23 Range/Units 07:48 WBC 7.9 (4.8-10.8) X10*3/uL RBC 3.06 L (4.60-5.80) X10*6/uL Hgb 10.4 L (14.0-18.0) g/dl Hct 31.6 L (42.0-52.0) % MCV 103.3 H (80.0-98.0) fL MCH 34.0 H (27.0-33.0) pg MCHC 32.9 (31.0-36.0) g/dl RDW 14.6 (11.0-16.0) % Plt Count 116 L (160-400) X10*3/uL MPV 9.1 L (9.4-12.4) fL Immature Gran % (Auto) 0.5 H (0.0-0.4) % Neut % (Auto) 76.5 H (45-73) % Lymph % (Auto) 12.7 L (20-40) % [place] % (Auto) 7.5 (2-11) % Eos % (Auto) 2.2 (0-4) % Baso % (Auto) 0.6 (0-2) % Lymph # (Auto) 1.0 L (1.2-4.9) X10*3/uL [place] # (Auto) 0.6 (0.1-1.2) X10*3/uL Eos # (Auto) 0.2 (0.0-0.4) X10*3/uL Baso # (Auto) 0.1 (0.0-0.2) X10*3/uL Abs Immat Gran (auto) 0.04 H (0.00-0.03) X10*3/uL Absolute Neuts (auto) 6.0 (2.0-8.3) x10*3/uL Absolute Nucleated RBC 0.000 (0.0-0.012) X10*3/uL Nucleated RBC % (auto) 0.0 (0.0-0.2) /100WBC Sodium 137 (135-145) mmol/L Potassium 5.7 H (3.3-5.1) mmol/L Chloride 98 (96-108) mmol/L Carbon Dioxide 28 (22-29) mmol/L Anion Gap 17 (12-20) BUN 60 H (9-16) mg/dL Creatinine 11.34 H* (0.5-1.4) mg/dL Estim Creat Clear Calc 7.2 Estimated GFR 5 Random Glucose 85 (60-115) mg/dL Calcium 10.5 H D (8.4-10.2) mg/dL Independent Historian Clinical information obtained from an independent historian. History obtained from or confirmed by: EMS External Record Review External record reviewed: Outpatient record Prescription Management I considered prescription management with: Pain Medication (patients chronic pain needs to be managed by his PMD) Chronic Conditions Patient?s care impacted by: Hypertension and Other (ESRD on dialysis) Social Determinants Patient?s care significantly limited by Social Determinants of Health including: Low income Discharge Plan Discharge Clinical Impression: Stasis dermatitis of both legs, Chronic peripheral neuropathic pain, Cellulitis Patient Disposition: Home, Self-Care Instructions: Cellulitis (ED), Peripheral Vascular Disease (ED) Additional Instructions: you must see your doctor this week Prescriptions: New doxycycline monohydrate 100 mg capsule 100 mg PO BID Qty: 20 0RF No Action amlodipine 10 mg tablet 10 mg PO DAILY Qty: 30 3RF metoprolol succinate 50 mg tablet extended release 24 hr 1 tab PO DAILY levothyroxine 125 mcg tablet 1 tab PO QAM Velphoro 500 mg tablet,chewable 1,500 mg PO BID aspirin 81 mg Tablet,Chewable 81 mg PO DAILY docusate sodium 100 mg Tablet 200 mg PO DAILY cholecalciferol (vitamin D3) 25 mcg (1,000 unit) Tablet 25 mcg PO DAILY omega 0-syf-wln-fish oil [Fish Oil] 1,000 mg (120 mg-180 mg) Capsule 1 cap PO DAILY oxycodone 15 mg tablet 15 mg PO BID PRN (Reason: pain) Qty: 30 0RF Rx Instructions: Partial Fill upon patient request. Print Language: B[place]udian
[2023-10-08 07:52] LABS: MANUAL DIFF FLAG NO
[2023-10-08 07:54] LABS: Basophils Absolute Auto 0.1 X10*3/uL (0.0-0.2); Basophils Percent Auto 0.6 % (0-2); Eosinophils Absolute Auto 0.2 X10*3/uL (0.0-0.4); Eosinophils Percent Auto 2.2 % (0-4); Hematocrit 31.6 % (42.0-52.0); Hemoglobin 10.4 g/dl (14.0-18.0); Imm Gran Abs Auto 0.04 X10*3/uL (0.00-0.03); Imm Gran Pct Auto 0.5 % (0.0-0.4); Lymphocytes Percent Auto 12.7 % (20-40); Mean Corpuscular HGB Conc 32.9 g/dl (31.0-36.0); Mean Corpuscular Volume 103.3 fL (80.0-98.0); Mean Platelet Volume 9.1 fL (9.4-12.4); Monocytes Absolute Auto 0.6 X10*3/uL (0.1-1.2); Monocytes Percent Auto 7.5 % (2-11); Neutrophils Percent Auto 76.5 % (45-73); Platelet Count 116 X10*3/uL (160-400); Red Blood Count 3.06 X10*6/uL (4.60-5.80); Red Cell Distribution Width 14.6 % (11.0-16.0); White Blood Count 7.9 X10*3/uL (4.8-10.8)
[2023-10-08 08:05] LABS: Anion Gap 17 (12-20); Blood Urea Nitrogen 60 mg/dL (9-16); Calcium 10.5 mg/dL (8.4-10.2); Carbon Dioxide 28 mmol/L (22-29); Chloride 98 mmol/L (96-108); Glucose Random 85 mg/dL (60-115); Potassium 5.7 mmol/L (3.3-5.1); Sodium 137 mmol/L (135-145)
[2023-10-08 08:07] LABS: Creatinine Clr Calc Pharmacy 7.2; Estimated Glomerular Filt Rate 5
[2023-10-08] MEDS: Doxycycline Monohydrate 100 MG CAPSULE PO ×2 (08:08→20:20)
[2023-10-08] MEDS: Silver Sulfadiazine 1 % Cream 20 GM TUBE 1 APPL TOPICAL (08:08)
--- NOTE | 2023-10-08 08:15 | PC.NURSE ---
patient legs wrapped and cream applied per JUN.
--- NOTE | 2023-10-08 10:18 | P.HPHOSP_ITS ---
History of Present Illness Date of Service: 10/08/23 Attending physician on admission: Valente Montaño Chief Complaint: leg pain 63-year-old male with history of ESRD on HD MWF, IVDA, chronic venous stasis dermatitis bilaterally, restless legs syndrome, chronic gout, hypothyroidism, hyperlipidemia, hypertension presented to the ED earlier today for evaluation of bilateral leg pain that he woke up with. He states he has had chronic pain in the bilateral lower extremities dating back 10+ years but this morning was worse. As a result, he came to the ED and missed his dialysis session. Unfortunately, there is no available spot in the dialysis clinic to fit him in so he will require HD. On arrival, vitals are stable. There is no leukocytosis or fevers. Creatinine 11.34, BUN 60, potassium 5.7, calcium 10.5, electrolytes otherwise normal. In the ED, has been given doxycycline and legs were dressed with Silvadene cream. Review of Systems 2 Review of Systems: Yes all other systems are reviewed and are negative [facility] Medical History CKD (chronic kidney disease) Chronic wound Bilateral leg pain Acquired hypothyroidism Hyperlipidemia Obesity, Class II, BMI 35-39.9 Chronic gout due to renal impairment Hallucinations Stasis dermatitis of both legs Iron deficiency anemia ESRD on dialysis Sensory neuropathy Polyp of colon, adenomatous Moderate episode of recurrent major depressive disorder Impaired fasting glucose Restless leg syndrome Impacted cerumen of left ear Foot pain, bilateral Seasonal allergic rhinitis due to pollen Chronic diastolic heart failure Essential hypertension Atherosclerosis of [place] coronary artery of [place] heart without angina pectoris Normocytic anemia Thrombocytopenia Neuropathy Acute renal failure on dialysis End stage renal disease Blind right eye Sleep apnea Gout Edema Chronic kidney disease HTN (hypertension) Surgical History History of coronary artery bypass graft Social History Household Members: None Housing: Apartment Do you presently have visiting nurse or other home services: Yes Alcohol intake: never Patient Tobacco Use Status: Never used Tobacco Advance Directives: No Advance Directives Information Provided: No service: No Meds Allergies Allergy/AdvReac Type Severity Reaction Status Date / Time prednisone AdvReac Unknown shortness Verified 10/08/23 06:30 of breath zolpidem AdvReac Hallucinati Verified 10/08/23 06:30 ons Home Medications ?Medication ?Instructions ?Recorded ?Confirmed ?Last Taken ?Type metoprolol succinate 50 mg 1 tab PO DAILY 01/18/22 10/08/23 10/07/23 History tablet,extended release 24 hr aspirin 81 mg chewable tablet 81 mg PO DAILY 11/29/22 10/08/23 10/07/23 History cholecalciferol (vitamin D3) 25 25 mcg PO DAILY 11/29/22 10/08/23 10/07/23 History mcg (1,000 unit) tablet docusate sodium 100 mg tablet 200 mg PO DAILY 11/29/22 10/08/23 10/07/23 History clopidogrel 75 mg tablet 75 mg PO DAILY 10/08/23 10/08/23 10/07/23 History gabapentin 100 mg capsule 100 mg PO MOWEFR 10/08/23 10/08/23 10/07/23 History levothyroxine 125 mcg tablet 125 mcg PO DAILY 10/08/23 10/08/23 10/07/23 History oxycodone 15 mg tablet 30 mg PO DAILY pain 10/08/23 10/08/23 10/07/23 History sucroferric oxyhydroxide 500 mg 1,000 mg PO BEDTIME 10/08/23 10/08/23 10/07/23 History chewable tablet (Velphoro) sucroferric oxyhydroxide 500 mg 1,500 mg PO DAILY 10/08/23 10/08/23 10/07/23 History chewable tablet (Velphoro) Physical Exam 2 Vital Signs and Narrative: Vital Signs: Last Vital Signs Temp 98.6 F 10/08/23 08:34 Pulse 56 10/08/23 08:34 Resp 18 10/08/23 08:34 BP 135/70 10/08/23 08:34 Pulse Ox 100 10/08/23 08:34 O2 Del Method Room Air 10/08/23 08:34 BMI result Body Mass Index 30.1 Constitutional - Awake and Alert, No apparent distress Eyes - PERRLA, EOMI Cardiovascular - S1S2, RRR, No edema Respiratory - Normal lung expansion, Normal respiratory effort, No respiratory distress, CTA bilaterally Gastrointestinal - NT / ND; +BS; No rebound or guarding Extremities - no calf tenderness bilaterally, no swelling Skin - Warm/Dry. chronic venous stasis changes to the ble with shallow moist venous ulcerations. no purulent drainage, significant warmth Neurological - Alert & oriented x3, CN II-XII in tact, 5/5 strength BUE and BLE Psychological - Appropriate affect Results Labs 10/08/23 07:48 10/08/23 07:48 Labs: Laboratory Results - last 24 hr 10/08/23 07:48 MCV 103.3 H MCH 34.0 H MCHC 32.9 RDW 14.6 Plt Count 116 L MPV 9.1 L Immature Gran % (Auto) 0.5 H Neut % (Auto) 76.5 H Lymph % (Auto) 12.7 L [place] % (Auto) 7.5 Eos % (Auto) 2.2 Baso % (Auto) 0.6 Lymph # (Auto) 1.0 L [place] # (Auto) 0.6 Eos # (Auto) 0.2 Baso # (Auto) 0.1 Abs Immat Gran (auto) 0.04 H Absolute Neuts (auto) 6.0 Absolute Nucleated RBC 0.000 Nucleated RBC % (auto) 0.0 Anion Gap 17 Estim Creat Clear Calc 7.2 Estimated GFR 5 Random Glucose 85 Calcium 10.5 H D Assessment and Plan (1) ESRD on hemodialysis: Status: Acute (2) Stasis dermatitis of both legs: Status: Acute Plan 63-year-old male with history of ESRD on HD MWF, IVDA, chronic venous stasis dermatitis bilaterally, restless legs syndrome, chronic gout, hypothyroidism, hyperlipidemia, hypertension admitted for ESRD requiring HD #ESRD requiring HD MWF -missed HD this morning. -plan for HD today -nephro consult -follow renal function #Acute hyperkalemia -due to above -plan for hd #Chronic neuropathic pain ble -baseline unpsecified polyneuropathy -increase oxycodone to 15mg TID (states BID dosing was previously working, but in last few months less effective) -continue renally dosed gabapentin #Chronic venous stasis dermatitis with superficial venous ulcers -possible superimprosed cellulitis, but no fevers or leukocytosis -cover with PO doxy 100mg BID -house wirer helper consult #HTN -continue metoprolol, amlodipine # PAD -continue DAPT DVT prophylaxis- heparin full code pt requires inpt stay at least 2 midnights as he missed HD and will requri inpt hd with monitoring of renal fx and lytes Quality Stroke Does the patient have a stroke diagnosis?: No VTE Prior VTE?: No VTE Risk Level:: Medical - moderate - high VTE Device Contraindication: Treatment Not Indicated VTE Drug Contraindication: N/A - Med Ordered
--- NOTE | 2023-10-08 10:18 | PHA.MEDREC ---
Addendum entered by Lucy Cai 10/08/23 10:39: Changed Oxycodone 15 mg directions to 15 mg bid because provider wants directions to be what was prescribed. Original Note: Pharmacy Consult ? Medication Reconciliation Pharmacy has completed the medication reconciliation. Spoke to patient to confirm med list . Patient states he takes Velphoro 1,500 mg in the morning and 1,000 mg in the evening. Gabapentin 100 mg 3xw on Mondays, Wednesdays and Fridays. Patient says that Oxycodone 15 mg bid is no longer working for him so he has been taking 2 tablets (30 mg) daily.
--- NOTE | 2023-10-08 11:02 | MHC.EDTECH ---
PT'S BILATERAL LEGS WRAPPED WITH GAUZE, PT TOLERATED WELL, RN AWARE. PT WAS THEN 1 ASSISTED TO BATHROOM WITH CANE AND A STEADY GAIT.
[2023-10-08] MEDS: Gabapentin 100 MG CAPSULE PO (11:06)
--- NOTE | 2023-10-08 12:04 | P.CONNP_ITS ---
History of Present Illness Reason for Consult Consult date: 10/08/23 Chief Complaint Chief complaint: needs HD History of Present Illness Narrative: 63 year old patient with history of ESRD admitted with leg pain,. He tells me he went to dialysis this morning and was having excruciating leg pain and decided to go to ER. Review of Systems Review of Systems 10 points ROS negative except for pertinent in HPI PMFSH Past Medical History Medical History (Updated 10/08/23 @ 12:07 by Wale Fraire MD) End stage renal disease CKD (chronic kidney disease) Chronic wound Bilateral leg pain Acquired hypothyroidism Hyperlipidemia Obesity, Class II, BMI 35-39.9 Chronic gout due to renal impairment Hallucinations Stasis dermatitis of both legs Iron deficiency anemia ESRD on dialysis Sensory neuropathy Polyp of colon, adenomatous Moderate episode of recurrent major depressive disorder Impaired fasting glucose Restless leg syndrome Impacted cerumen of left ear Foot pain, bilateral Seasonal allergic rhinitis due to pollen Chronic diastolic heart failure Essential hypertension Atherosclerosis of [place] coronary artery of [place] heart without angina pectoris Normocytic anemia Thrombocytopenia Neuropathy Acute renal failure on dialysis Blind right eye Sleep apnea Gout Edema Chronic kidney disease HTN (hypertension) Surgical History Surgical History History of coronary artery bypass graft Social History Social History Household Members: None Housing: Apartment Do you presently have visiting nurse or other home services: Yes Alcohol intake: never Patient Tobacco Use Status: Never used Tobacco Advance Directives: No Advance Directives Information Provided: No service: No Meds Allergies Allergy/AdvReac Type Severity Reaction Status Date / Time prednisone AdvReac Unknown shortness Verified 10/08/23 06:30 of breath zolpidem AdvReac Hallucinati Verified 10/08/23 06:30 ons Active Medications: Current Medications Acetaminophen (Acetaminophen 325 Mg Tablet) 650 mg PO Q6H PRN PRN Reason: Pain, Mild (Pain Scale 1-3), fever or headache Amlodipine Besylate (Amlodipine Besylate 10 Mg Tablet) 10 mg PO DAILY ANDREA; Protocol Aspirin (Aspirin 81 Mg Tab.Chew) 81 mg PO DAILY [facility] Calcium Carbonate (Calcium Carbonate 750 Mg Tab.Chew) 750 mg PO Q4H PRN PRN Reason: Heartburn Clopidogrel Bisulfate (Clopidogrel Bisulfate 75 Mg Tablet) 75 mg PO DAILY [facility] Docusate Sodium (Docusate Sodium 100 Mg Capsule) 200 mg PO DAILY [facility] Doxycycline Monohydrate (Doxycycline Monohydrate 100 Mg Capsule) 100 mg PO Q12H [facility] Gabapentin (Gabapentin 100 Mg Capsule) 100 mg PO MOWEFR [facility] Last Admin: 10/08/23 11:06 Dose: 100 mg Heparin Sodium (Porcine) (Heparin Sodium,Porcine 5,000 Unit/Ml Vial) 5,000 unit SUBCUT Q12H [facility] Last Admin: 10/08/23 11:09 Dose: Not Given Levothyroxine Sodium (Levothyroxine Sodium 125 Mcg Tablet) 125 mcg PO DAILY@0600 [facility] Magnesium Hydroxide (Milk Of Magnesia 30 Ml Oral.Susp) 30 ml PO DAILY PRN PRN Reason: Constipation Melatonin (Melatonin 3 Mg Tablet) 6 mg PO BEDTIME PRN PRN Reason: Insomnia Metoprolol Succinate (Metoprolol Succinate Er 50 Mg Tab.Er.24h) 50 mg PO DAILY [facility]; Protocol Non-Formulary Medication (Sucroferric Oxyhydroxide [Velphoro]) 1,000 mg PO BEDTIME [facility] Non-Formulary Medication (Sucroferric Oxyhydroxide [Velphoro]) 1,500 mg PO DAILY [facility] Oxycodone HCl (Oxycodone Hcl Immed Release 15 Mg Tablet) 15 mg PO Q8H PRN PRN Reason: Pain, Severe (Pain Scale 7-10) Sodium Chloride (0.9 % Sodium Chloride Flush 3 Ml Syringe) 3 ml IVFLUSH QSHIFT [facility] Vitamin D (Cholecalciferol (Vitamin D3) 25 Mcg Tablet) 25 mcg PO DAILY [facility] Home Medications ?Medication ?Instructions ?Recorded ?Confirmed ?Last Taken ?Type metoprolol succinate 50 mg 1 tab PO DAILY 01/18/22 10/08/23 10/07/23 History tablet,extended release 24 hr aspirin 81 mg chewable tablet 81 mg PO DAILY 11/29/22 10/08/23 10/07/23 History cholecalciferol (vitamin D3) 25 25 mcg PO DAILY 11/29/22 10/08/23 10/07/23 History mcg (1,000 unit) tablet docusate sodium 100 mg tablet 200 mg PO DAILY 11/29/22 10/08/23 10/07/23 History clopidogrel 75 mg tablet 75 mg PO DAILY 10/08/23 10/08/23 10/07/23 History gabapentin 100 mg capsule 100 mg PO MOWEFR 10/08/23 10/08/23 10/07/23 History levothyroxine 125 mcg tablet 125 mcg PO DAILY 10/08/23 10/08/23 10/07/23 History oxycodone 15 mg tablet 15 mg PO BID pain 10/08/23 10/08/23 10/07/23 History sucroferric oxyhydroxide 500 mg 1,000 mg PO BEDTIME 10/08/23 10/08/23 10/07/23 History chewable tablet (Velphoro) sucroferric oxyhydroxide 500 mg 1,500 mg PO DAILY 10/08/23 10/08/23 10/07/23 History chewable tablet (Velphoro) Physical Exam Vital Signs: Last Vital Signs Temp 98.6 F 10/08/23 08:34 Pulse 56 10/08/23 08:34 Resp 18 10/08/23 08:34 BP 135/70 10/08/23 08:34 Pulse Ox 100 10/08/23 08:34 O2 Del Method Room Air 10/08/23 08:34 BMI result Body Mass Index 30.1 Const General: alert and awake HEENT Head: Yes normocephalic and Yes atraumatic Neck Neck: Yes supple Resp Auscultation: clear to auscultation bilaterally Cardio Heart sounds: S1 normal heart sound present and S2 normal heart sound present GI Palpation (GI): Soft to palpation and nontender Extrem Right lower extremity: edema Left lower extremity: edema Results Lab Results 10/08/23 07:48 10/08/23 07:48 Lab results: Chemistry 10/08/23 07:48 Sodium 137 Potassium 5.7 H Carbon Dioxide 28 BUN 60 H Creatinine 11.34 H* Calcium 10.5 H D Hematology 10/08/23 07:48 WBC 7.9 Hgb 10.4 L Plt Count 116 L Assessment and Plan (1) End stage renal disease: Status: Acute (2) Hyperkalemia: Status: Acute (3) Anemia: Status: Acute Plan known ESRD on HD via AVF at [facility] followed by Dr Meyers nephrogenic anemia REC HD today UF as tolerated P binders renal diet CAL per protocol Thank you Procedures Date of Service Date of Service: 10/08/23
--- NOTE | 2023-10-08 14:47 | MHC.CLN ---
NUTRITION CONSULT FOR WEIGHT LOSS AND DECREASED APPETITE. PATIENT WITH ESRD AND REQUIRES HEMODIALYSIS. HAS BILATERAL LOWER EXTREMITY VENOUS/STASIS ULCERS. REVIEW OF WEIGHT HX SHOWS -10.1% WEIGHT LOSS X 9 MONTHS AND -12.8% WEIGHT LOSS X ONE YEAR. CONTINUES OVERWEIGHT WITH BMI=30.1. SOME WEIGHT FLUCTUATION ANTICIPATED DUE TO FLUID BALANCE WITH ESRD/HD. RD WILL CHECK INTAKE IN 2 DAYS. NO ADDITIONAL NUTRITION INTERVENTIONS AT THIS TIME.
--- NOTE | 2023-10-08 15:00 | HO.WOUND ---
Wound Consult: Initial 63yr old?[place] [facility] [place] See progress notes and H&P for detailed history.? Wound consult placed for bilateral Lower Legs.? Patient agreeable to assessment and photo documentation.? Patient was sitting at bedside picking at the plantar area of his feet - there appeared to be dried blood. He was agreeable to me assessing his feet but reports his legs were just dressing in ED prior to unit arrival and requests I do not change the dressings. He reports she has VNA Nurse who sees him twice a week and he goes to an outpt wound clinic in [facility] on Mondays. he is unsure of the topical care they provide but is aware they are routinely cared for. Left Plantar Right Plantar Etiology: Neuropathic wounds Wound Bed: partial thickness tissue loss - moist pink wound beds Drainage / Odor: serosand dried to wound edge Edges: ? irregular Lidia wound: Intact ? No Induration, Fluctuance or Warmth noted Pain: tender to touch Goals of Treatment: ? Foam dressing to allow for moist wound healing and protect from friction and trauma Recommendations: 1. Bilateral Plantar Wounds - Cleanse with NS, pat dry. Apply skin prep to periwound. Cover wound bed with Foam dressing. Change every 3 days and PRN. Re-consult wound care Nurse for wound deterioration or wound changes.
--- NOTE | 2023-10-08 17:33 | PM.DS ---
DS: Providers Provider Date of Service: 10/08/23 Date of admission: 10/08/23 10:12 Date of discharge: 10/08/23 Primary care physician: Berna Saavedra MD Admitting clinician: Yuliya Ramirez Attending physician on admission: Valente Montaño Consults: 10/08/23 10:12 Consult to Nephrology Routine Consulting Provider: [facility] Reason for consultation: esrd needs hd 10/08/23 10:32 Consult to Wound Care Routine Reason for consultation: ble venosu stasis with venous ulcers Attending [facility] on discharge: [facility] Discharging clinician: Yuliya Ramirez DS: Diagnosis Discharge Diagnosis (1) End stage renal disease: Status: Acute (2) Hyperkalemia: Status: Acute (3) Anemia: Status: Acute DS: Summary Hospital Course Hospital Course: HPI on admission by this provider 10/07: Chief Complaint: leg pain 63-year-old male with history of ESRD on HD MWF, IVDA, chronic venous stasis dermatitis bilaterally, restless legs syndrome, chronic gout, hypothyroidism, hyperlipidemia, hypertension presented to the ED earlier today for evaluation of bilateral leg pain that he woke up with. He states he has had chronic pain in the bilateral lower extremities dating back 10+ years but this morning was worse. As a result, he came to the ED and missed his dialysis session. Unfortunately, there is no available spot in the dialysis clinic to fit him in so he will require HD. On arrival, vitals are stable. There is no leukocytosis or fevers. Creatinine 11.34, BUN 60, potassium 5.7, calcium 10.5, electrolytes otherwise normal. In the ED, has been given doxycycline and legs were dressed with Silvadene cream. Hospital course: Hospital course uneventful. Pt admitted to hospitalist service as he presented to the ED for evaluation of leg pain and unfortunately missed HD and clinic was unable to find alternative appt for him. He was admitted wt creat 11.34, BUN 60, K 5.7. Seen by nephrology who arranged HD for patient and was dialyzed this afternoon. He was noted to have chronic venous stasis dermatitis with superficial venous ulcers and was started on PO doxycycline 100mg BID to cover possible possible superimposed cellulitis. He denies substance use. No leukocytosis, fevers. no sepsis. He should continue doxycycline 100mg BID x 10 days. He was given short prescription for oxycodone 15mg q8h, increased frequency due to worsening BLE pain during treatment course for cellulitis. Should follow up with prescriber for additional refills. MASSPAT reviewed. Follow up with nephrology as scheduled and continue MWF HD sessions. Follow up with PCP soon. For PAD, was continued on plavix and asa. For hypothyroidism, was continued on levothyroxine. For htn, was continued on metoprolol and amlodipine. For chronic neuropathic pain was continued on gabapentin with increased dose of oxycodone as previously noted. Will continue with wound care through [facility]. Time Attestation Discharge Coordination Time (in mins): 35 Quality: Safe Use of Opioids Does Pt have an Active Cancer Diagnosis on the Problem List?: No Quality: Stroke Does the patient have a stroke diagnosis?: No Physical Exam Vital Signs: Vital Signs: Last Vital Signs Temp 97 F 10/08/23 16:00 Pulse 63 10/08/23 16:00 Resp 18 10/08/23 16:00 BP 169/86 H 10/08/23 16:00 Pulse Ox 100 10/08/23 16:00 O2 Del Method Room Air 10/08/23 16:00 BMI result Body Mass Index 30.1 DS: Data Data Completed and Pending Completed studies during hospitalization [Text1]: Procedures Performance of Urinary Filtration, Intermittent, Less than 6 Hours Per Day (11/29/22) Labs on day of discharge: Laboratory Results - last 24 hr 10/08/23 07:48 WBC 7.9 RBC 3.06 L Hgb 10.4 L Hct 31.6 L MCV 103.3 H MCH 34.0 H MCHC 32.9 RDW 14.6 Plt Count 116 L MPV 9.1 L Immature Gran % (Auto) 0.5 H Neut % (Auto) 76.5 H Lymph % (Auto) 12.7 L [place] % (Auto) 7.5 Eos % (Auto) 2.2 Baso % (Auto) 0.6 Lymph # (Auto) 1.0 L [place] # (Auto) 0.6 Eos # (Auto) 0.2 Baso # (Auto) 0.1 Abs Immat Gran (auto) 0.04 H Absolute Neuts (auto) 6.0 Absolute Nucleated RBC 0.000 Nucleated RBC % (auto) 0.0 Sodium 137 Potassium 5.7 H Chloride 98 Carbon Dioxide 28 Anion Gap 17 BUN 60 H Creatinine 11.34 H* Estim Creat Clear Calc 7.2 Estimated GFR 5 Random Glucose 85 Calcium 10.5 H D Discharge Plan Discharge Anticipated Discharge Date/Time: 10/08/23 17:26 Patient Disposition: Home Health Service Discharge Diagnosis: ESRD on HD, cellulitis Referrals: Berna Saavedra MD [Primary Care Provider] - 1 Week Discharge Medications: New doxycycline monohydrate 100 mg capsule 100 mg PO BID Qty: 20 0RF Continued amlodipine 10 mg tablet 10 mg PO DAILY Qty: 30 3RF metoprolol succinate 50 mg tablet extended release 24 hr 1 tab PO DAILY clopidogrel 75 mg tablet 75 mg PO DAILY levothyroxine 125 mcg tablet 125 mcg PO DAILY gabapentin 100 mg capsule 100 mg PO MOWEFR Velphoro 500 mg tablet,chewable 1,500 mg PO DAILY Velphoro 500 mg tablet,chewable 1,000 mg PO BEDTIME aspirin 81 mg Tablet,Chewable 81 mg PO DAILY docusate sodium 100 mg Tablet 200 mg PO DAILY cholecalciferol (vitamin D3) 25 mcg (1,000 unit) Tablet 25 mcg PO DAILY Changed oxycodone 15 mg tablet 15 mg PO Q8H PRN (Reason: pain, severe) Qty: 30 0RF Rx Instructions: Partial Fill upon patient request. Discharge Orders: Discharge Order (Routine); Ordered 10/08/23 Ordered By: Yuliya Ramirez Diet: Low salt diet Activity on Discharge: As tolerated Stand Alone Forms: Patient Portal Discharge page Print Language: Palauan Activity Restrictions/Additional Instructions: you must see your doctor this week Care Plan Goals: Continue HD and follow up with nephrology as scheduled Treat possible bacterial cellulitis of bilateral lower legs -continue doxycycline twice daily x 10 days. Take with meal and full glass of water. Do not lay down for 1 hour after taking medication -Increased supply of oxycodone 15mg to be taken every 8 hours as needed for severe pain while treating acute cellulitis. Must follow up with prescriber for further refills which will not be available from the hospital. -continue with [facility] for wound care Health Concerns: End stage renal disease Chronic venous stasis dermatitis with possible superimposed cellulitis Plan of Treatment: As above Assessment: As above. See discharge summary Patient Instructions: Cellulitis (ED), Peripheral Vascular Disease (ED) Discharge Date/Time: 10/08/23 20:23
[2023-10-08] MEDS: oxyCODONE HCl Immed Release 15 MG TABLET PO (18:56)
== END 2023-10-08 20:23 | disposition home health service (06) | DRG 602 ==
LOC: HO.ED 08:44 → HO.EDOVER 10:21 → HO.S3 11:15
PROVIDERS: Admitting Provider Physician Assistant; Emergency Provider Emergency Medicine; PCP Obstetrics & Gynecology; Visit Provider Physician Assistant
DX: L03.116 Cellulitis of left lower limb (principal); N18.6 End stage renal disease; I12.0 Hypertensive chronic kidney disease with stage 5 chronic kidney disease or end stage renal disease; L97.829 Non-pressure chronic ulcer of other part of left lower leg with unspecified severity; L97.819 Non-pressure chronic ulcer of other part of right lower leg with unspecified severity; L03.115 Cellulitis of right lower limb; I25.10 Atherosclerotic heart disease of native coronary artery without angina pectoris; I87.2 Venous insufficiency (chronic) (peripheral); E03.9 Hypothyroidism, unspecified; E87.5 Hyperkalemia; I10 Essential (primary) hypertension; D63.1 Anemia in chronic kidney disease; G62.9 Polyneuropathy, unspecified; Z99.2 Dependence on renal dialysis; Z95.1 Presence of aortocoronary bypass graft; Z91.158 Patient's noncompliance with renal dialysis for other reason; Z79.02 Long term (current) use of antithrombotics/antiplatelets; Z79.82 Long term (current) use of aspirin; Z79.890 Hormone replacement therapy; Z79.899 Other long term (current) drug therapy
CPT/HCPCS: 36415; 80048; 85025; 90999; 99221; 99285

== ENCOUNTER → 2023-10-08 10:12 | Outpatient (BNV) | payer OTHER, SELFPAY | PROVIDERS: Admitting Provider Physician Assistant; Emergency Provider Emergency Medicine; PCP Obstetrics & Gynecology; Visit Provider Physician Assistant | DX: N18.6 End stage renal disease (principal); E87.5 Hyperkalemia; D64.9 Anemia, unspecified | CPT/HCPCS: 99235; 99499 ==

== ENCOUNTER 2024-02-15 10:10 | Emergency (ER) | payer MEDICARE, MEDICAID, SELFPAY ==
--- NOTE | ~2024-02-15 | XR_ITS ---
EXAMINATION: XR TIBIA AND FIBULA, RIGHT CLINICAL INFORMATION: Chronic wounds COMPARISON: None available. TECHNIQUE: AP and lateral views of the right tibia and fibula were obtained. FINDINGS: No acute cortical disruption. No lytic or blastic lesions. No osteolysis. No periosteal bone reaction. No subcutaneous emphysema. Vascular calcifications. XR/XR tibia fibula RT 2V IMPRESSION: No acute fracture. No osteomyelitis on x-ray. Atherosclerosis disease, peripheral. Electronically signed by: Moreno Egan MD 02/15/2024 11:58 AM EST
--- NOTE | ~2024-02-15 | XR_ITS ---
EXAMINATION: LEFT TIBIA AND FIBULA X-RAY. CLINICAL INFORMATION: Chronic wounds. COMPARISON: Correlated to the left knee x-ray dated August 11, 2016. TECHNIQUE: AP and cross lateral view. The findings: No acute cortical disruption. No osteolysis. No periosteal bone reaction. No subcutaneous emphysema. Vascular calcifications. No lytic or blastic lesions. XR/XR tibia fibula LT 2V IMPRESSION: No acute fracture. Atherosclerosis disease, peripheral. No osteomyelitis based upon x-ray. Electronically signed by: Moreno Egan MD 02/15/2024 11:57 AM EST
[2024-02-15 10:17] VITALS: BP 108/54; BP 130/80; PULSE 68; PULSE 70; RESP 17; TEMP 36.8; O2SAT 100; O2SAT 97; BMI 30.6
--- NOTE | 2024-02-15 10:22 | ED.GENADULT ---
HPI - General Adult General Chief complaint: General Medical Stated complaint: LEG PAIN,SORES BLEEDING,FROM DIALYSIS PER EMS Time Seen by Provider: 02/15/24 10:17 Source: patient, EMS and RN notes reviewed Mode of arrival: EMS Limitations: no limitations History of Present Illness ED Provider: brenda HPI narrative: Patient is a 63-year-old male with history of ESRD on dialysis M/W/F, HTN, chronic leg wounds presenting to the ED from dialysis with complaint of bleeding from chronic lower leg wounds. States wounds have been present since 2010, and he follows with the wound clinic every Sunday. Denies recent fevers, chills, body aches. This morning took all three daily doses of oxycodone at once due to the pain. This has not helped. States he has been cleared by vascular. MD complaint: leg pain Onset (ago): hour(s) Location: lower extremity Severity: severe Quality: burning and aching Pain Consistency: constant Relieving factors: rest Exacerbating factors: movement Associated symptoms: denies other symptoms Treatments prior to arrival: none Related Data Home Medications ?Medication ?Instructions ?Recorded ?Confirmed metoprolol succinate 50 mg 1 tab PO DAILY 01/18/22 10/08/23 tablet,extended release 24 hr aspirin 81 mg chewable tablet 81 mg PO DAILY 11/29/22 10/08/23 cholecalciferol (vitamin D3) 25 25 mcg PO DAILY 11/29/22 10/08/23 mcg (1,000 unit) tablet docusate sodium 100 mg tablet 200 mg PO DAILY 11/29/22 10/08/23 clopidogrel 75 mg tablet 75 mg PO DAILY 10/08/23 10/08/23 gabapentin 100 mg capsule 100 mg PO MOWEFR 10/08/23 10/08/23 levothyroxine 125 mcg tablet 125 mcg PO DAILY 10/08/23 10/08/23 sucroferric oxyhydroxide 500 mg 1,000 mg PO BEDTIME 10/08/23 10/08/23 chewable tablet (Velphoro) sucroferric oxyhydroxide 500 mg 1,500 mg PO DAILY 10/08/23 10/08/23 chewable tablet (Velphoro) Previous Rx's ?Medication ?Instructions ?Recorded amlodipine 10 mg tablet 10 mg PO DAILY #30 tabs 09/23/20 doxycycline monohydrate 100 mg 100 mg PO BID #20 caps 10/08/23 capsule oxycodone 15 mg tablet 15 mg PO Q8H PRN pain, severe #30 10/08/23 tabs Allergies Allergy/AdvReac Type Severity Reaction Status Date / Time prednisone AdvReac Unknown shortness Verified 02/15/24 10:22 of breath zolpidem AdvReac Hallucinati Verified 02/15/24 10:22 ons Review of Systems Review of Systems: As per HPI Yes all other systems are reviewed and are negative Constitutional: Constitutional: Reports as per HPI [facility] Past Medical History Medical History (Updated 02/15/24 @ 14:06 by Saadia Le NP) CKD (chronic kidney disease) Chronic wound Bilateral leg pain Acquired hypothyroidism Hyperlipidemia Obesity, Class II, BMI 35-39.9 Chronic gout due to renal impairment Hallucinations Stasis dermatitis of both legs Iron deficiency anemia ESRD on dialysis Sensory neuropathy Polyp of colon, adenomatous Moderate episode of recurrent major depressive disorder Impaired fasting glucose Restless leg syndrome Impacted cerumen of left ear Foot pain, bilateral Seasonal allergic rhinitis due to pollen Chronic diastolic heart failure Essential hypertension Atherosclerosis of [place] coronary artery of [place] heart without angina pectoris Normocytic anemia Thrombocytopenia Neuropathy Acute renal failure on dialysis Blind right eye Sleep apnea Gout Edema Chronic kidney disease HTN (hypertension) Surgical History History of coronary artery bypass graft Social History Social History Household Members: None Housing: Apartment Do you presently have visiting nurse or other home services: Yes ([facility] twice/week) Alcohol intake: never Patient Tobacco Use Status: Never used Tobacco Advance Directives: No Advance Directives Information Provided: Yes Do you have a plan to hurt others: No Plan service: No Physical Exam ED Vital Signs: Vital Signs - 24 hr 02/15/24 10:17 02/15/24 12:02 Temperature 98.2 F Pulse Rate 68 Respiratory Rate 17 22 H Blood Pressure 108/54 L Pulse Oximetry 100 Oxygen Delivery Method Room Air BMI result Body Mass Index 30.6 Vital signs have been reviewed and appear to be correct. Blood pressure normal. Heart rate normal. Respiratory rate normal. Temperature normal. Oxygen saturation normal. Const General: cooperative and no acute distress Orientation/consciousness: oriented to person, oriented to place, oriented to time and patient oriented x3 Limitations: no limitations HENMT Head: Yes normocephalic and Yes atraumatic Ears: external ears normal General nose exam: Normal external nose present Face and sinus: Yes face symmetric Mouth: oropharynx normal and moist mucous membranes Throat: Yes uvula midline Eyes Pupils: Equal, round and reactive pupils present Neck Neck: Yes normal visual inspection and Yes supple Resp Effort & Inspection: normal respiratory effort and able to speak in complete sentences Auscultation: clear to auscultation bilaterally Cardio Rate: regular rate Rhythm: regular rhythm Heart sounds: S1 normal heart sound present and S2 normal heart sound present GI Palpation (GI): Soft to palpation and nontender Auscultation: normoactive bowel sounds General: Yes no CVA tenderness Back/Spine/Pelvis Back: no CVA tenderness Skin General skin exam: elasticity normal and turgor normal Neuro General: oriented to person, oriented to place, oriented to time, patient oriented x3, moves all extremities, no focal motor deficits and CN's II-XI intact bilaterally Cranial nerves: Yes Equal, round and reactive pupils present Cognition (Neuro): normal cognition Extrem Other: General: Yes full ROM, Yes no pedal edema and Yes no calf tenderness Right lower extremity: foot Details: normal capillary refill, toes with normal ROM and vascular exam Details: dorsalis pedis pulse present, posterior tibial pulse present and normal capillary refill Left lower extremity: foot Details: normal capillary refill, toes with normal ROM and vascular exam Details: dorsalis pedis pulse present, posterior tibial pulse present and normal capillary refill Psych Mental Status: mental status grossly normal Affect: normal affect Thought process: Normal thought process present Medications Administered Discontinued Medications Generic Name Dose Route Start Last Admin Trade Name Lisa PRN Reason Stop Dose Admin Morphine Sulfate 4 mg 02/15/24 11:57 02/15/24 12:02 Morphine Sulfate 4 Mg/Ml Cartridge IVPUSH 02/15/24 11:58 4 mg ONCE ONE Administration Protocol Medical Decision Making Medical Decision Making MDM Narrative: Patient is a 63-year-old male with history of ESRD on dialysis M/W/F, HTN, chronic leg wounds presenting to the ED from dialysis with complaint of bleeding from chronic lower leg wounds. On exam patient is awake, A+Ox3, VS WNL, afebrile, normal neurological exam without focal deficits, physical exam findings as above. Given reported symptoms and physical exam findings, initial differential includes chronic wounds, stasis dermatitis, chronic neuropathic pain, cellulitis. Labs notable for elevated lactic secondary to ESRD, do not suspect sepsis, no leukocytosis, mildly elevated ESR and CRP. X-rays notable for no evidence of osteomyelitis bilaterally. My interpretation is in agreement with the radiologist's interpretation. Legs are not warm, do not appear acutely infected. Patient complaining of ongoing excruciating pain despite the oxycodone he took at home and the morphine given here. Discussed with patient that due to the chronic nature of his pain, he will need to follow up with his PCP if he feels his pain control is inadequate. Return precautions discussed. Patient verbalized understanding of and agreement with plan. Differential Diagnosis Differential Diagnoses: The differential diagnosis associated with the presentation includes as per [facility] Admission/Observation Consideration of admission/observation: Escalation of care including admission/observation considered Patient would have been admitted to the hospital had their work up had any findings where hospital admission was appropriate and their clinical presentation warranted hospital admission. Lab Data [facility] Lab Attestation statement: I reviewed the patient's lab results. As per [facility] 02/15/24 10:51 02/15/24 12:14 Labs: Lab Results 02/15/24 02/15/24 Range/Units 10:51 12:14 WBC 7.8 (4.8-10.8) X10*3/uL RBC 3.09 L (4.60-5.80) X10*6/uL Hgb 9.7 L (14.0-18.0) g/dl Hct 29.0 L (42.0-52.0) % MCV 93.9 (80.0-98.0) fL MCH 31.4 (27.0-33.0) pg MCHC 33.4 (31.0-36.0) g/dl RDW 15.6 (11.0-16.0) % Plt Count 184 D (160-400) X10*3/uL MPV 10.1 (9.4-12.4) fL Immature Gran % (Auto) 0.5 H (0.0-0.4) % Neut % (Auto) 73.5 H (45-73) % Lymph % (Auto) 16.4 L (20-40) % [place] % (Auto) 7.5 (2-11) % Eos % (Auto) 1.2 (0-4) % Baso % (Auto) 0.9 (0-2) % Lymph # (Auto) 1.0 L (1.2-4.9) X10*3/uL [place] # (Auto) 0.4 (0.1-1.2) X10*3/uL Eos # (Auto) 0.1 (0.0-0.4) X10*3/uL Baso # (Auto) 0.1 (0.0-0.2) X10*3/uL Abs Immat Gran (auto) 0.03 (0.00-0.03) X10*3/uL Absolute Neuts (auto) 4.3 (2.0-8.3) x10*3/uL Absolute Nucleated RBC 0.000 (0.0-0.012) X10*3/uL Nucleated RBC % (auto) 0.0 (0.0-0.2) /100WBC ESR 44 H (0-15) MM/HR PT 10.6 L (10.9-12.4) SEC INR 0.9 (0.9-1.1) Sodium 139 (135-145) mmol/L Potassium 5.1 (3.3-5.1) mmol/L Chloride 97 (96-108) mmol/L Carbon Dioxide 27 (22-29) mmol/L Anion Gap 20 (12-20) BUN 26 H (9-16) mg/dL Creatinine 7.76 H* (0.5-1.4) mg/dL Estim Creat Clear Calc 10.7 Estimated GFR 7 Random Glucose 92 (60-115) mg/dL Lactic Acid 2.3 H* (0.5-2.0) mmol/L Calcium 10.2 (8.4-10.2) mg/dL Total Bilirubin 0.4 (0.0-1.0) mg/dL AST 18 (5-37) U/L ALT < 6 (0-40) U/L Alkaline Phosphatase 121 H (39-117) U/L C-Reactive Protein 3.51 H (< or = 0.50) mg/dL Total Protein 7.3 (6.5-8.0) g/dL Albumin 3.7 (3.5-5.0) g/dL Independent Interpretation I performed an independent interpretation of an: Plain X-Ray Interpretation: No evidence of osteomyelitis on bilateral tib/fib xrays Radiology Impression Discussion of test interpretation with radiology: I have reviewed the radiologist's reading. Radiologist Impression: XR/XR tibia fibula RT 2V IMPRESSION: No acute fracture. No osteomyelitis on x-ray. Atherosclerosis disease, peripheral. XR/XR tibia fibula LT 2V IMPRESSION: No acute fracture. Atherosclerosis disease, peripheral. No osteomyelitis based upon x-ray. External Record Review External record reviewed: Inpatient record, Office record and Outpatient record Discharge Plan Discharge Clinical Impression: Stasis dermatitis of both legs Patient Disposition: Home, Self-Care Instructions: Peripheral Vascular Disease (ED) Additional Instructions: You were evaluated in the emergency department today for leg pain due to chronic wounds. Your legs do not appear acutely infected today. Follow up with wound care on Sunday. Return to the emergency department if you develop fever, thick yellow drainage, or any other new or concerning symptoms. Prescriptions: No Action amlodipine 10 mg tablet 10 mg PO DAILY Qty: 30 3RF metoprolol succinate 50 mg tablet extended release 24 hr 1 tab PO DAILY doxycycline monohydrate 100 mg capsule 100 mg PO BID Qty: 20 0RF clopidogrel 75 mg tablet 75 mg PO DAILY levothyroxine 125 mcg tablet 125 mcg PO DAILY gabapentin 100 mg capsule 100 mg PO MOWEFR Velphoro 500 mg tablet,chewable 1,500 mg PO DAILY Velphoro 500 mg tablet,chewable 1,000 mg PO BEDTIME oxycodone 15 mg tablet 15 mg PO Q8H PRN (Reason: pain, severe) Qty: 30 0RF Rx Instructions: Partial Fill upon patient request. aspirin 81 mg Tablet,Chewable 81 mg PO DAILY docusate sodium 100 mg Tablet 200 mg PO DAILY cholecalciferol (vitamin D3) 25 mcg (1,000 unit) Tablet 25 mcg PO DAILY Print Language: Nauruan
[2024-02-15 11:04] LABS: INTERNATIONAL NORM RATIO 0.9 (0.9-1.1); Prothrombin Time 10.6 SEC (10.9-12.4)
[2024-02-15 11:09] LABS: Basophils Absolute Auto 0.1 X10*3/uL (0.0-0.2); Basophils Percent Auto 0.9 % (0-2); Eosinophils Absolute Auto 0.1 X10*3/uL (0.0-0.4); Eosinophils Percent Auto 1.2 % (0-4); Hemoglobin 9.7 g/dl (14.0-18.0); Imm Gran Abs Auto 0.03 X10*3/uL (0.00-0.03); Imm Gran Pct Auto 0.5 % (0.0-0.4); Lymphocytes Percent Auto 16.4 % (20-40); Mean Corpuscular HGB Conc 33.4 g/dl (31.0-36.0); Mean Corpuscular Hemoglobin 31.4 pg (27.0-33.0); Mean Corpuscular Volume 93.9 fL (80.0-98.0); Mean Platelet Volume 10.1 fL (9.4-12.4); Monocytes Absolute Auto 0.4 X10*3/uL (0.1-1.2); Monocytes Percent Auto 7.5 % (2-11); Neutrophils Absolute Auto 4.3 x10*3/uL (2.0-8.3); Neutrophils Percent Auto 73.5 % (45-73); Platelet Count 184 X10*3/uL (160-400); Red Blood Count 3.09 X10*6/uL (4.60-5.80); Red Cell Distribution Width 15.6 % (11.0-16.0); White Blood Count 7.8 X10*3/uL (4.8-10.8)
[2024-02-15 11:27] LABS: Lactic Acid 2.3 mmol/L (0.5-2.0)
[2024-02-15 11:35] LABS: Erythrocyte Sedimentation Rate 44 MM/HR (0-15)
[2024-02-15 12:02] VITALS: RESP 22
[2024-02-15] MEDS: Morphine Sulfate 4 MG/ML CARTRIDGE IVPUSH (12:02)
[2024-02-15 12:40] LABS: Alanine Aminotransferase < 6 U/L (0-40); Albumin Level 3.7 g/dL (3.5-5.0); Alkaline Phosphatase 121 U/L (39-117); Anion Gap 20 (12-20); Aspartate Amino Transferase 18 U/L (5-37); Bilirubin Total 0.4 mg/dL (0.0-1.0); Blood Urea Nitrogen 26 mg/dL (9-16); C Reactive Protein 3.51 mg/dL (< or = 0.50); Calcium 10.2 mg/dL (8.4-10.2); Carbon Dioxide 27 mmol/L (22-29); Chloride 97 mmol/L (96-108); Creatinine Clr Calc Pharmacy 10.7; Estimated Glomerular Filt Rate 7; Glucose Random 92 mg/dL (60-115); Potassium 5.1 mmol/L (3.3-5.1); Sodium 139 mmol/L (135-145); Total Protein 7.3 g/dL (6.5-8.0)
[2024-02-15 12:58] LABS: Reflex Lactate? Lactic Acid Added
--- NOTE | 2024-02-15 14:00 | MHC.EDTECH ---
pt refused bloodwork
[2024-02-15 15:08] VITALS: BP 125/71; PULSE 67; RESP 18; TEMP 36.8; O2SAT 98
[2024-02-15 15:09] VITALS: BP 125/71; PULSE 67; RESP 18; TEMP 36.7; O2SAT 98
== END 2024-02-15 15:09 | disposition home or self-care (01) ==
PROVIDERS: Registered Nurse Emergency; Emergency Provider Emergency Medicine; PCP Internal Medicine
DX: I87.2 Venous insufficiency (chronic) (peripheral) (principal); M79.662 Pain in left lower leg; M79.661 Pain in right lower leg; I13.2 Hypertensive heart and chronic kidney disease with heart failure and with stage 5 chronic kidney disease, or end stage renal disease; N18.6 End stage renal disease; I50.32 Chronic diastolic (congestive) heart failure; Z99.2 Dependence on renal dialysis; E78.5 Hyperlipidemia, unspecified; M79.2 Neuralgia and neuritis, unspecified; Z79.82 Long term (current) use of aspirin; Z79.899 Other long term (current) drug therapy
CPT/HCPCS: 36415; 73590; 80053; 83605; 85025; 85610; 85652; 86140; 87040; 96374; 99284; J2270

== ENCOUNTER → 2024-02-15 10:28 | Outpatient (BNV) | payer MEDICARE, MEDICAID, SELFPAY | PROVIDERS: Emergency Provider Emergency Medicine; PCP Internal Medicine; Visit Provider Radiology Diagnostic Radiology | DX: I70.203 Unspecified atherosclerosis of native arteries of extremities, bilateral legs (principal) | CPT/HCPCS: 73590 ==

== ENCOUNTER 2024-07-07 05:29 | Inpatient (IN) | payer MEDICARE, MEDICAID, SELFPAY ==
[2024-07-07] VITALS (15 sets, daily range): BP systolic 122–168; BP diastolic 49–83; PULSE 61–90; RESP 16–22; TEMP 36.1–37.1; O2SAT 98–100; BMI 33.6
--- NOTE | 2024-07-07 | ECG_ITS ---
Test Reason : CP Blood Pressure : */* mmHG Vent. Rate : 92 BPM Atrial Rate : 92 BPM P-R Int : 234 ms QRS Dur : 92 ms QT Int : 362 ms P-R-T Axes : 58 -19 114 degrees QTcB Int : 447 ms Sinus rhythm with 1st degree A-V block ST & T wave abnormality, consider lateral ischemia Abnormal ECG When compared with ECG of 29-Jan-2023 06:08, No significant change was found Referred By: Generic ED Physician Electronically Signed By: CALLIE GALLEGOS
--- NOTE | ~2024-07-07 | XR_ITS ---
CLINICAL HISTORY: Chest pain, shortness of breath, dialysis patient 1 view chest x-ray Comparison: CR/CO/SR - XR CHEST 2V - 01/29/23 08:51 EDT Findings: The lungs are clear. Similar prominent/enlarged cardiac silhouette. No acute fracture. Median sternotomy wires and plates. IMPRESSION: 1. No acute findings. This document has been electronically signed by: Clyde Escalante MD on 07/07/2024 06:23:14
--- NOTE | 2024-07-07 05:34 | ED.SOB ---
HPI - SOB/Dyspnea General Chief Complaint: Chest Pain Stated Complaint: SOB Time Seen by Provider: 07/07/24 05:34 Source: patient Mode of arrival: ambulatory Limitations: no limitations History of Present Illness ED Provider: Dr. Reagan Wood HPI Narrative: 63-year-old male with history of ESRD on HD MWF, IVDA, chronic venous stasis dermatitis bilaterally, restless legs syndrome, chronic gout, hypothyroidism, hyperlipidemia, hypertension presents emergency department for evaluation of shortness of breath and chest pain that began a proximally 20 minutes prior to coming to the emergency department. Patient states that he was extremely short of breath and was having severe chest pain at triage he was brought back directly into the emergency department. O2 saturation was 95% on room air. Patient was placed on 100% non-rebreather mask and then placed on BiPAP however patient could not tolerate BiPAP secondary to anxiety and removed it and he was placed back on 100% non-rebreather. Patient states that he missed his dialysis last week on both Sunday and Sunday. He states that he has a history of heart disease and had a bypass 5 years prior. The patient was on his way to dialysis when he developed the chest pain and came directly to the emergency department instead of going to the dialysis unit. Related Data Home Medications ?Medication ?Instructions ?Recorded ?Confirmed metoprolol succinate 50 mg 1 tab PO DAILY 01/18/22 10/08/23 tablet,extended release 24 hr aspirin 81 mg chewable tablet 81 mg PO DAILY 11/29/22 10/08/23 cholecalciferol (vitamin D3) 25 25 mcg PO DAILY 11/29/22 10/08/23 mcg (1,000 unit) tablet docusate sodium 100 mg tablet 200 mg PO DAILY 11/29/22 10/08/23 clopidogrel 75 mg tablet 75 mg PO DAILY 10/08/23 10/08/23 gabapentin 100 mg capsule 100 mg PO MOWEFR 10/08/23 10/08/23 levothyroxine 125 mcg tablet 125 mcg PO DAILY 10/08/23 10/08/23 sucroferric oxyhydroxide 500 mg 1,000 mg PO BEDTIME 10/08/23 10/08/23 chewable tablet (Velphoro) sucroferric oxyhydroxide 500 mg 1,500 mg PO DAILY 10/08/23 10/08/23 chewable tablet (Velphoro) Previous Rx's ?Medication ?Instructions ?Recorded amlodipine 10 mg tablet 10 mg PO DAILY #30 tabs 09/23/20 doxycycline monohydrate 100 mg 100 mg PO BID #20 caps 10/08/23 capsule oxycodone 15 mg tablet 15 mg PO Q8H PRN pain, severe #30 10/08/23 tabs Allergies Allergy/AdvReac Type Severity Reaction Status Date / Time zolpidem AdvReac Hallucinati Verified 07/07/24 05:37 ons FOR[facility]LY [facility] Past Medical History Medical History (Updated 07/07/24 @ 07:12 by Reagan Wood MD) CKD (chronic kidney disease) Chronic wound Bilateral leg pain Acquired hypothyroidism Hyperlipidemia Obesity, Class II, BMI 35-39.9 Chronic gout due to renal impairment Hallucinations Stasis dermatitis of both legs Iron deficiency anemia ESRD on dialysis Sensory neuropathy Polyp of colon, adenomatous Moderate episode of recurrent major depressive disorder Impaired fasting glucose Restless leg syndrome Impacted cerumen of left ear Foot pain, bilateral Seasonal allergic rhinitis due to pollen Chronic diastolic heart failure Essential hypertension Atherosclerosis of [place] coronary artery of [place] heart without angina pectoris Normocytic anemia Thrombocytopenia Neuropathy Acute renal failure on dialysis Blind right eye Sleep apnea Gout Edema Chronic kidney disease HTN (hypertension) Surgical History History of coronary artery bypass graft Social History Social History Household Members: None Housing: Apartment Do you presently have visiting nurse or other home services: Yes ([facility] twice/week) Alcohol intake: former Patient Tobacco Use Status: Never used Tobacco Smoked in Last 30 Days: No Use of substances other than those prescribed or required for medical reasons: Yes Substance Use Type: Marijuana Advance Directives: No Advance Directives Information Provided: Yes service: No Physical Exam Vital Signs: Vital Signs: Last Vital Signs Temp 98.4 F 07/07/24 05:34 Pulse 90 07/07/24 05:34 Resp 20 07/07/24 06:00 BP 157/83 H 07/07/24 05:34 Pulse Ox 100 07/07/24 05:34 O2 Del Method Oxymask 07/07/24 05:34 BMI result Body Mass Index 33.6 Vital signs revealed an elevated blood pressure of 157/83 Exam: General: Awake, awake, extremely anxious, yelling that he needs oxygen and that he can not breathe Head: Normocephalic, atraumatic EENT: PERRL, Lids normal, sclera normal, conjunctiva normal, nose normal , ears normal, throat without erythema or exudates Neck: Supple, no adenopathy Lung: breath sounds symmetric, no wheezing, rales or rhonchi Chest: symmetric movement, nontender Heart: regular rate and rhythm, normal S1, S2 no murmurs or rubs Abdomen: soft, non-tender, nondistended, normal bowel sounds Back: no vertebral tenderness, no CVAT Extremities: no deformities, moves all extremities symmetrically Neuro: Awake, alert, oriented, normal speech, cranial nerves intact, moves all extremities symmetrically Psych: Anxious Medications Administered Discontinued Medications Generic Name Dose Route Start Last Admin Trade Name Freq PRN Reason Stop Dose Admin Morphine Sulfate 4 mg 07/07/24 05:45 07/07/24 05:51 Morphine Sulfate 4 Mg/Ml Cartridge IVPUSH 07/07/24 05:46 4 mg ONCE STA Administration Protocol Sodium Zirconium Cyclosilicate 10 gm 07/07/24 06:33 07/07/24 06:48 Sodium Zirconium Cyclosilicate 10 Gm Powd.Pack PO 07/07/24 06:34 10 gm ONCE ONE Administration Medical Decision Making Medical Decision Making [facility] Narrative: 63-year-old male with history of ESRD on HD MWF, IVDA, chronic venous stasis dermatitis bilaterally, restless legs syndrome, chronic gout, hypothyroidism, hyperlipidemia, hypertension presents emergency department for evaluation of shortness of breath and chest pain that began a proximally 20 minutes prior to coming to the emergency department. Patient complained of extreme short of breath and was having severe chest pain . Patient states that he missed dialysis on Sunday and Sunday last week. O2 saturation was 95% on room air, the patient did not tolerate BiPAP and he was placed on 100% non-rebreather with a an O2 saturation of 100%. Patient appeared to be extremely anxious otherwise exam was unremarkable. Differential diagnosis: ?Includes but is not limited to congestive heart failure, pneumonia, myocardial infarction, myocardial ischemia, anxiety, hyperkalemia, electrolyte abnormalities, anemia Course: 06:26 My interpretation patient's laboratory evaluation is as follows: WBC was normal 8100. Anemia with an H&H of 6.1 and 20.7. This has decreased from his baseline from 02/15/2024 when he was H&H was 9.7 and 29.0. Venous blood gas: PH 7.52, pCO2 28, bicarb 23. Potassium was elevated 6.2. Serum bicarb low 21. BUN elevated at 79 with an elevated creatinine of 14.11. Glucose elevated 129. High sensitive troponin I was elevated at 70.6. Repeat due at at 08:45 hours. Patient was 12 EKG did not reveal any significant ST segment elevation or depression but the patient did have inverted T-waves in 1, aVL, and Q-waves in V1 and V2. Compared to his EKG from 01/29/2023 inverted T-wave in 1 was new but aVL was old and Q-waves are old. My interpretation of the patient's chest x-ray revealed no acute congestive heart failure. The patient was given Lokelma 10 mg orally. The patient was video news editor is Dr. Meyers. I did discuss the patient's presentation with the covering video news editor, and she will get the patient dialyzed today. The patient is anemic and there are 2 units on hold in the blood bank to be given during dialysis. I did discuss the patient's presentation over tiger text with the covering hospitalist, Stephanie Silvestre the patient will be admitted for further treatment. Admission/Observation Consideration of admission/observation: Escalation of care including admission/observation considered (Yes) Lab Data MDM Lab Attestation statement: I reviewed the patient's lab results. 07/07/24 05:44 07/07/24 05:44 Labs: Lab Results 07/07/24 07/07/24 07/07/24 Range/Units 05:44 05:55 06:07 WBC 8.1 (4.8-10.8) X10*3/uL RBC 2.09 L D (4.60-5.80) X10*6/uL Hgb 6.6 L* D (14.0-18.0) g/dl Hct 20.7 L* D (42.0-52.0) % MCV 99.0 H (80.0-98.0) fL MCH 31.6 (27.0-33.0) pg MCHC 31.9 (31.0-36.0) g/dl RDW 17.3 H (11.0-16.0) % Plt Count 133 L D (160-400) X10*3/uL MPV 9.3 L (9.4-12.4) fL Immature Gran % (Auto) 0.7 H (0.0-0.4) % Neut % (Auto) 70.9 (45-73) % Lymph % (Auto) 16.9 L (20-40) % [place] % (Auto) 8.8 (2-11) % Eos % (Auto) 2.1 (0-4) % Baso % (Auto) 0.6 (0-2) % Lymph # (Auto) 1.4 (1.2-4.9) X10*3/uL [place] # (Auto) 0.7 (0.1-1.2) X10*3/uL Eos # (Auto) 0.2 (0.0-0.4) X10*3/uL Baso # (Auto) 0.1 (0.0-0.2) X10*3/uL Abs Immat Gran (auto) 0.06 H (0.00-0.03) X10*3/uL Absolute Neuts (auto) 5.8 (2.0-8.3) x10*3/uL Absolute Nucleated RBC 0.000 (0.0-0.012) X10*3/uL Nucleated RBC % (auto) 0.0 (0.0-0.2) /100WBC PT 11.0 (10.9-12.4) SEC INR 0.9 (0.9-1.1) APTT 28.0 (26.0-36.8) SEC VBG pH 7.52 H (7.32-7.43) VBG pCO2 28 mmHg VBG pO2 54 mmHg VBG HCO3 23 (22-26) mmol/L VBG O2 Saturation TNP VBG Base Excess 1.2 mmol/L Sodium 136 (135-145) mmol/L Potassium 6.2 H* D (3.3-5.1) mmol/L Chloride 97 (96-108) mmol/L Carbon Dioxide 21 L (22-29) mmol/L Anion Gap 24 H (12-20) BUN 79 H (9-16) mg/dL Creatinine 14.11 H* (0.5-1.4) mg/dL Estim Creat Clear Calc 6.1 Estimated GFR 4 Random Glucose 129 H (60-115) mg/dL Calcium 9.8 (8.4-10.2) mg/dL Total Bilirubin 0.2 (0.0-1.0) mg/dL AST 18 (5-37) U/L ALT < 6 (0-40) U/L Alkaline Phosphatase 97 (39-117) U/L Troponin I High Sens 70.6 H D (<3.5-35.0) ng/L Total Protein 6.7 (6.5-8.0) g/dL Albumin 3.5 (3.5-5.0) g/dL Lipase 15 (8-78) U/L Ethyl Alcohol < 10 mg/dL Blood Type O Negative Antibody Screen NEGATIVE Crossmatch See Detail Independent Interpretation I performed an independent interpretation of an: EKG and Plain X-Ray Interpretation: My independent interpretation of the patient's 12 EKG done on 07/07/2024 at 05:35 hours is as follows: Sinus rhythm with a first-degree AV block with a rate of 92 and a [place] interval 234 milliseconds, normal QRS duration and QTC interval, inverted T-waves in 1, aVL. Q-waves V1 and V2. Compared to an EKG dated 01/29/2023 at 06:08 hours, the inverted T-wave in aVL is old in the Q-waves in V1 through V2 are old. My independent interpretation of the patient's one-view chest x-ray is as follows: No acute findings, no significant CHF. Critical Care Time Critical Care Time Critical Care Time: Yes Total Critical Care Time: 45 Attestation: Critical Care: The patient was critically ill with a high probability of imminent or life threatening deterioration. I spent greater than 30 minutes of discontinuous time evaluating the patient,delivering critical care at the bedside, discussing and evaluating pertinent data with consultants. Critical care time does not include time spent performing separately billable procedures or teaching. Total time spent performing critical care was 45 minutes. Discharge Plan Discharge Clinical Impression: Acute dyspnea, Acute chest pain, Acute hyperkalemia, End stage chronic kidney disease Patient Disposition: Admitted As Inpatient Print Language: Persian
[2024-07-07 05:49] LABS: Basophils Absolute Auto 0.1 X10*3/uL (0.0-0.2); Basophils Percent Auto 0.6 % (0-2); Eosinophils Absolute Auto 0.2 X10*3/uL (0.0-0.4); Eosinophils Percent Auto 2.1 % (0-4); Imm Gran Abs Auto 0.06 X10*3/uL (0.00-0.03); Imm Gran Pct Auto 0.7 % (0.0-0.4); Lymphocytes Absolute Auto 1.4 X10*3/uL (1.2-4.9); Lymphocytes Percent Auto 16.9 % (20-40); MANUAL DIFF FLAG NO; Mean Corpuscular HGB Conc 31.9 g/dl (31.0-36.0); Mean Corpuscular Hemoglobin 31.6 pg (27.0-33.0); Mean Platelet Volume 9.3 fL (9.4-12.4); Monocytes Absolute Auto 0.7 X10*3/uL (0.1-1.2); Monocytes Percent Auto 8.8 % (2-11); Neutrophils Absolute Auto 5.8 x10*3/uL (2.0-8.3); Neutrophils Percent Auto 70.9 % (45-73); Platelet Count 133 X10*3/uL (160-400); Red Blood Count 2.09 X10*6/uL (4.60-5.80); Red Cell Distribution Width 17.3 % (11.0-16.0); White Blood Count 8.1 X10*3/uL (4.8-10.8)
[2024-07-07] MEDS: Morphine Sulfate 4 MG/ML CARTRIDGE IVPUSH (05:51)
[2024-07-07 05:52] LABS: Hematocrit 20.7 % (42.0-52.0); Hemoglobin 6.6 g/dl (14.0-18.0)
[2024-07-07 06:00] LABS: VBG Base Excess 1.2 mmol/L; VBG HCO3 23 mmol/L (22-26); VBG pCO2 28 mmHg; VBG pH 7.52 (7.32-7.43); VBG pO2 54 mmHg
[2024-07-07 06:01] LABS: INTERNATIONAL NORM RATIO 0.9 (0.9-1.1)
[2024-07-07 06:02] LABS: Venous Blood Gas Refer to POC result
[2024-07-07 06:09] LABS: Alanine Aminotransferase < 6 U/L (0-40); Albumin Level 3.5 g/dL (3.5-5.0); Alkaline Phosphatase 97 U/L (39-117); Anion Gap 24 (12-20); Aspartate Amino Transferase 18 U/L (5-37); Bilirubin Total 0.2 mg/dL (0.0-1.0); Blood Urea Nitrogen 79 mg/dL (9-16); Calcium 9.8 mg/dL (8.4-10.2); Carbon Dioxide 21 mmol/L (22-29); Chloride 97 mmol/L (96-108); Creatinine Clr Calc Pharmacy 6.1; Estimated Glomerular Filt Rate 4; Ethanol < 10 mg/dL; Glucose Random 129 mg/dL (60-115); Lipase 15 U/L (8-78); Potassium 6.2 mmol/L (3.3-5.1); Sodium 136 mmol/L (135-145); Total Protein 6.7 g/dL (6.5-8.0)
--- NOTE | 2024-07-07 06:11 | MHC.EDTECH ---
Spoke to the RN and MD. Holding on Lactic and Blood Cultures at this moment.
[2024-07-07 06:12] LABS: Troponin-I High Sensitivity 70.6 ng/L (<3.5-35.0)
--- NOTE | 2024-07-07 06:23 | PC.NURSE ---
Pt not tolerating bipap, anxious requesting to discontinue. Provider Nina made aware. Pt placed back on oxymask.
--- NOTE | 2024-07-07 06:40 | MHC.EDTECH ---
Patient goes to [facility] [place]. He is followed by Dr. Meyers. The phone number for dialysis is [phone]. Patient goes MWF.
[2024-07-07] MEDS: Sodium Zirconium Cyclosilicate 10 GM POWD.PACK PO (06:48)
--- NOTE | 2024-07-07 07:16 | PC.NURSE ---
Assumed care of pt at 0700. Pt resting in bed quietly, a/ox3, speaking in full sentences, respirations even and unlabored, no increased wob/sob noted, pt remains on oxymask for comfort, maintaining O2 sat high 90s, nsr on matrix inspector- HR 60s, denies cp/sob. Vitals taken and updated in worklist. Per MD Wood, no lactic/BNP lab draw needed. Pt able to reposition self in bed, call [place] within reach, all needs met at this time.
--- NOTE | 2024-07-07 08:20 | P.HPHOSP_ITS ---
History of Present Illness Date of Service: 07/07/24 Chief Complaint: shortness of breath and chest pain The patient is a 63-year-old male with a past medical history of ESRD on hemodialysis Sunday, chronic venous stasis dermatitis and associated ulcers, restless leg syndrome, chronic gout, hypothyroidism, hyperlipidemia, hypertension, CAD status post triple bypass, previously documented intravenous drug use who presents [place] [facility] with chest pain and shortness of breath. The patient reports that he was on his way to his scheduled dialysis when he began feeling this way. He reported chest pain as substernal and pressure-like in nature. He reports missing dialysis all of last week due to family illness/. Upon arrival to the emergency room the patient was noted to be in visible distress. Was treated initially with BiPAP which he was not able to tolerate. Subsequently he was transitioned to non- rebreather mask and now is on 11 L OxyMask. His workup in the emergency room has revealed significant anemia with H&H 6.6/20.7. His initial troponin was 70.6 and repeat is pending. EKG does not show any acute changes. His potassium is 6.2 and his creatinine is 14. The patient has been given a dose of IV morphine and Lokelma 10. The case was discussed by the ED provider with the covering director of marketing operations, Dr. Yung ([facility]) with plans for dialysis. 2 units of PRBCs ordered as well. Pt is seen and examined this AM around 815 AM. He reports resolution of his chest pain. He denies any hemotpysis, hematemesis, hematuria, melena. He does endorse bleeding from his wounds last week. Review of Systems 2 Review of Systems: Negative except HPI/interval history. [facility] Medical History (Updated 07/07/24 @ 07:12 by Reagan Wood MD) CKD (chronic kidney disease) Chronic wound Bilateral leg pain Acquired hypothyroidism Hyperlipidemia Obesity, Class II, BMI 35-39.9 Chronic gout due to renal impairment Hallucinations Stasis dermatitis of both legs Iron deficiency anemia ESRD on dialysis Sensory neuropathy Polyp of colon, adenomatous Moderate episode of recurrent major depressive disorder Impaired fasting glucose Restless leg syndrome Impacted cerumen of left ear Foot pain, bilateral Seasonal allergic rhinitis due to pollen Chronic diastolic heart failure Essential hypertension Atherosclerosis of [place] coronary artery of [place] heart without angina pectoris Normocytic anemia Thrombocytopenia Neuropathy Acute renal failure on dialysis Blind right eye Sleep apnea Gout Edema Chronic kidney disease HTN (hypertension) Surgical History History of coronary artery bypass graft Social History Household Members: None Housing: Apartment Do you presently have visiting nurse or other home services: Yes ([facility]NA twice/week) Alcohol intake: former Patient Tobacco Use Status: Never used Tobacco Smoked in Last 30 Days: No Use of substances other than those prescribed or required for medical reasons: Yes Substance Use Type: Marijuana Advance Directives: No Advance Directives Information Provided: Yes service: No Meds Allergies Allergy/AdvReac Type Severity Reaction Status Date / Time zolpidem AdvReac Hallucinati Verified 07/07/24 05:37 ons Active Medications: Current Medications Acetaminophen (Acetaminophen 325 Mg Tablet) 650 mg PO Q6H PRN PRN Reason: Pain, Mild 1-3,fever,headache Calcium Carbonate (Calcium Carbonate 750 Mg Tab.Chew) 750 mg PO Q4H PRN PRN Reason: Heartburn Magnesium Hydroxide (Milk Of Magnesia 30 Ml Oral.Susp) 30 ml PO DAILY PRN PRN Reason: Constipation Melatonin (Melatonin 3 Mg Tablet) 6 mg PO BEDTIME PRN PRN Reason: Insomnia Sodium Chloride (0.9 % Sodium Chloride Flush 3 Ml Syringe) [address] [facility] Home Medications ?Medication ?Instructions ?Recorded ?Confirmed ?Last Taken ?Type metoprolol succinate 50 mg 1 tab PO DAILY 01/18/22 10/08/23 10/07/23 History tablet,extended release 24 hr aspirin 81 mg chewable tablet 81 mg PO DAILY 11/29/22 10/08/23 10/07/23 History cholecalciferol (vitamin D3) 25 25 mcg PO DAILY 11/29/22 10/08/23 10/07/23 History mcg (1,000 unit) tablet docusate sodium 100 mg tablet 200 mg PO DAILY 11/29/22 10/08/23 10/07/23 History clopidogrel 75 mg tablet 75 mg PO DAILY 10/08/23 10/08/23 10/07/23 History gabapentin 100 mg capsule 100 mg PO MOWEFR 10/08/23 10/08/23 10/07/23 History levothyroxine 125 mcg tablet 125 mcg PO DAILY 10/08/23 10/08/23 10/07/23 History sucroferric oxyhydroxide 500 mg 1,000 mg PO TID 07/07/24 Unknown History chewable tablet (Velphoro) trazodone 100 mg tablet 100 mg PO BEDTIME 07/07/24 Unknown History Physical Exam 2 Vital Signs and Narrative: Vital Signs: Last Vital Signs Temp 98.4 F 07/07/24 07:14 Pulse 61 07/07/24 07:14 Resp 18 07/07/24 07:14 BP 134/49 L 07/07/24 07:14 Pulse Ox 100 07/07/24 07:14 O2 Del Method Oxymask 07/07/24 07:14 O2 Flow Rate 11 07/07/24 07:14 BMI result Body Mass Index 33.6 Const: Other: Constitutional - Awake and Alert, No apparent distress Eyes - PERRLA, EOMI Cardiovascular - S1S2, RRR, No edema Respiratory - dim sounds; breathing comfortably Gastrointestinal - NT / ND; +BS; No rebound or guarding - No CVA tenderness Extremities - no calf tenderness bilaterally, no swelling Musculoskeletal - Normal inspection, normal ROM Skin - chronic venous stasis changes; no evidence of cellulitis Neurological - Alert & oriented x3, No focal deficit Psychological - Appropriate affect Results Labs 07/07/24 05:44 07/07/24 05:44 Labs: Laboratory Results - last 24 hr 07/07/24 07/07/24 07/07/24 05:44 05:55 06:07 MCV 99.0 H MCH 31.6 MCHC 31.9 RDW 17.3 H Plt Count 133 L D MPV 9.3 L Immature Gran % (Auto) 0.7 H Neut % (Auto) 70.9 Lymph % (Auto) 16.9 L [place] % (Auto) 8.8 Eos % (Auto) 2.1 Baso % (Auto) 0.6 Lymph # (Auto) 1.4 [place] # (Auto) 0.7 Eos # (Auto) 0.2 Baso # (Auto) 0.1 Abs Immat Gran (auto) 0.06 H Absolute Neuts (auto) 5.8 Absolute Nucleated RBC 0.000 Nucleated RBC % (auto) 0.0 PT 11.0 INR 0.9 APTT 28.0 VBG pH 7.52 H VBG pCO2 28 VBG pO2 54 VBG HCO3 23 VBG O2 Saturation TNP VBG Base Excess 1.2 Anion Gap 24 H Estim Creat Clear Calc 6.1 Estimated GFR 4 Random Glucose 129 H Calcium 9.8 Total Bilirubin 0.2 AST 18 ALT < 6 Alkaline Phosphatase 97 Total Protein 6.7 Albumin 3.5 Lipase 15 Ethyl Alcohol < 10 Blood Type O Positive Antibody Screen NEGATIVE Crossmatch See Detail Assessment and Plan (1) Acute chest pain: Status: Acute (2) Anemia: Status: Acute (3) Acute hyperkalemia: Status: Acute (4) End stage chronic kidney disease: Status: Acute Plan 63 yo M with multiple medical issues being admitted for acute respiratory distress and chest pain + anemia + hyperK and ESRD. 1. Chest pain / shortness of breath likely secondary to missed dialysis + component of anxiety plan for dialysis today trend trops 2. Acute on chronic anemia linda out acute blood loss, currently without evidence of blood loss -- will check FOBT plan to tranfuse 2 units during dialysis check h/h later today 3. HyperK, ESRD given lokelma x 1 plan for dialysis today d/w Dr. Meyers 4. CAD s/p CABG continue baseline meds 5. HTN continue baseline meds Full Code DVT pptx -- mechanical if he is able to tolerate (has chronic venous stasis); will start pharmacological once blood loss anemia has been ruled out Pt with chest pain/elevated troponins, hyperK and need for urgent dialysis, acute anemia without known cause requiring further workup and monitoring, therefore expected to require at least 2 midnights in the hospital for management/evaluation. Hence, will be admitted as inpatient. Med rec pending -- continue home meds as appropriate. Quality Stroke Does the patient have a stroke diagnosis?: No VTE Prior VTE?: No VTE Risk Level:: Medical - moderate - high VTE Device Contraindication: N/A - Device Ordered VTE Drug Contraindication: N/A - Med Ordered
--- NOTE | 2024-07-07 08:50 | PC.NURSE ---
Pt off unit @ dialysis
--- NOTE | 2024-07-07 09:30 | PHA.MEDREC ---
Addendum entered by Jorje Dyer 07/07/24 09:38: reviewed Original Note: Pharmacy Consult ? Medication Reconciliation Pharmacy has completed the medication reconciliation. Spoke to patient to confirm med list. Patient states he takes Velphoro 500 mg in the morning and 1,000 mg daily in the afternoon, even though Claims has Velphoro 2 tablet TID. Patient last took his medications yesterday.
--- NOTE | 2024-07-07 10:25 | PC.RT ---
bipap pulled and dc's due to anxiety and refuses to wear. pt in dialysis at this time.
--- NOTE | 2024-07-07 11:12 | PC.NURSE ---
rec'd verbal nurse to nurse report, pt currently at dialysis
[2024-07-07 11:44] LABS: Troponin-I High Sensitivity 106.9 ng/L (<3.5-35.0)
[2024-07-07] MEDS: oxyCODONE HCl Immed Release 15 MG TABLET PO (15:25)
--- NOTE | 2024-07-07 16:12 | P.PNNP_ITS ---
Subjective Subjective Date of Service: 07/07/24 Interval history: LÁZARO consulted for HD mangement. PT well known to LÁZARO and gets HD 3x/wk at [facility] He presented phuong hagen SOB In summary 63 yo M with multiple medical issues as noted below aDM WITH SOB NOW IMPROVED WITH HD. SAYS he missed 2 HD Tx last week being admitted for acute respiratory distress and chest pain + anemia + hyperK and ESRD. He has chronic leg wounds and gets routine f/u with wound care Physical Exam 2 Vital Signs: Vital Signs: Last Vital Signs Temp 96.9 F 07/07/24 16:05 Pulse 80 07/07/24 16:05 Resp 18 07/07/24 16:05 BP 122/61 07/07/24 16:05 Pulse Ox 100 07/07/24 15:29 O2 Del Method Nasal Cannula 07/07/24 15:29 O2 Flow Rate 7 07/07/24 15:29 BMI result Body Mass Index 33.6 Const: Other: Constitutional - Awake and Alert, No apparent distress Eyes - PERRLA, EOMI Cardiovascular - S1S2, RRR, No edema Respiratory - dim sounds; breathing comfortably Gastrointestinal - NT / ND; +BS; No rebound or guarding - No CVA tenderness Extremities - no calf tenderness bilaterally, no swelling Musculoskeletal - Normal inspection, normal ROM Skin - chronic venous stasis changes; no evidence of cellulitis Neurological - Alert & oriented x3, No focal deficit Psychological - Appropriate affect Objective Data Labs 07/07/24 05:44 07/07/24 05:44 Labs: Laboratory Results - last 24 hr 07/07/24 07/07/24 07/07/24 05:44 05:55 06:07 WBC 8.1 RBC 2.09 L D Hgb 6.6 L* D Hct 20.7 L* D MCV 99.0 H MCH 31.6 MCHC 31.9 RDW 17.3 H Plt Count 133 L D MPV 9.3 L Immature Gran % (Auto) 0.7 H Neut % (Auto) 70.9 Lymph % (Auto) 16.9 L [place] % (Auto) 8.8 Eos % (Auto) 2.1 Baso % (Auto) 0.6 Lymph # (Auto) 1.4 [place] # (Auto) 0.7 Eos # (Auto) 0.2 Baso # (Auto) 0.1 Abs Immat Gran (auto) 0.06 H Absolute Neuts (auto) 5.8 Absolute Nucleated RBC 0.000 Nucleated RBC % (auto) 0.0 PT 11.0 INR 0.9 APTT 28.0 VBG pH 7.52 H VBG pCO2 28 VBG pO2 54 VBG HCO3 23 VBG O2 Saturation TNP VBG Base Excess 1.2 Sodium 136 Potassium 6.2 H* D Chloride 97 Carbon Dioxide 21 L Anion Gap 24 H BUN 79 H Creatinine 14.11 H* Estim Creat Clear Calc 6.1 Estimated GFR 4 Random Glucose 129 H Calcium 9.8 Total Bilirubin 0.2 AST 18 ALT < 6 Alkaline Phosphatase 97 Troponin I High Sens 70.6 H D Total Protein 6.7 Albumin 3.5 Lipase 15 Ethyl Alcohol < 10 Blood Type O Positive Antibody Screen NEGATIVE Crossmatch See Detail 07/07/24 10:44 WBC RBC Hgb Hct MCV MCH MCHC RDW Plt Count MPV Immature Gran % (Auto) Neut % (Auto) Lymph % (Auto) [place] % (Auto) Eos % (Auto) Baso % (Auto) Lymph # (Auto) [place] # (Auto) Eos # (Auto) Baso # (Auto) Abs Immat Gran (auto) Absolute Neuts (auto) Absolute Nucleated RBC Nucleated RBC % (auto) PT INR APTT VBG pH VBG pCO2 VBG pO2 VBG HCO3 VBG O2 Saturation VBG Base Excess Sodium Potassium Chloride Carbon Dioxide Anion Gap BUN Creatinine Estim Creat Clear Calc Estimated GFR Random Glucose Calcium Total Bilirubin AST ALT Alkaline Phosphatase Troponin I High Sens 106.9 H* D Total Protein Albumin Lipase Ethyl Alcohol Blood Type Antibody Screen Crossmatch Procedures Date of Service Date of Service: 07/07/24 Assessment & Plan Assessment and plan (1) Acute chest pain: Status: Acute (2) Anemia: Status: Acute (3) Acute hyperkalemia: Status: Acute (4) End stage chronic kidney disease: Status: Acute Plan 1. ESRD: HD today and then cont mwf but may need xtra UF and will reasses tomorrw 2. SOB: d/t CHF and/or Pneumonia--hosp team is evaluatin 3. Anemia: getting xfused 4. MBD of CKD: cont routine meds 5. Leg wounds: cont wound care REC: HD today a dn poss xtra IUF tomporrow; xfuse will follow w team Time Spent With Patient Time: Total time managing care of this patient today ____ minutes. Progress Note: Quality Stroke Does the patient have a stroke diagnosis?: No
[2024-07-07] MEDS: 0.9 % Sodium Chloride Flush 3 ML SYRINGE IVFLUSH ×2 (16:27→20:20)
--- NOTE | 2024-07-07 17:08 | HO.WOUND ---
Wound Consult: Initial 63yr old?male admitted to [facility] on 07/07/24 08:18 See progress notes and H&P for detailed history.? Wound consult placed for Bilateral Lower Legs.? Patient agreeable to assessment and photo documentation.? Patient reports she treats at our wound clinic in [facility] wound care- recommend patienthave continued follow up at time of d/c. Patient and family reports understanding. Bilateral Lower Legs Etiology: Venous Dermatitis - ??Present on Admission Wound Bed: scattered dry red clean appearing scabs Drainage / Odor: dried serosang drainage noted to periwound Edges: ? irregular Lidia wound: intact red pink pigmentation noted ? No Induration, Fluctuance or Warmth noted Pain: pain reported - baseline Goals of Treatment: ? moist wound healing with xeroform and gauze wrap. Recommendations: 1. Turn and Reposition every 2 hours and as needed for patient comfort.? Use pillows or wedges to support off loading positions. 2. Off Load all bony prominences with use of pillows and heel boots if needed.? Apply Preventative foams where needed. ? 3. Monitor for incontinence and moisture control, use barrier creams when needed for prevention and treatment. 4. Provide adequate and supplemental nutrition.? 5. Order low air loss mattress. 6. When applicable maintain blood glucose levels per Providers order. 7. Bilateral Lower Legs - Cleanse with NS, pat dry. Apply skin prep to periwound, cover wound beds with single layer xerform followed by dry gauze, ABD pad and wrap. Change daily while inpatient. Recommend continued outpt follow up with your wound care doctor. Re-consult wound care Nurse for wound deterioration or wound changes.
[2024-07-07] MEDS: traZODone HCL 100 MG TABLET PO (20:20)
[2024-07-07] MEDS: Acetaminophen 325 MG TABLET 650 MG PO (20:42)
[2024-07-08] MEDS: oxyCODONE HCl Immed Release 15 MG TABLET PO ×2 (00:01→09:25)
[2024-07-08 02:17] VITALS: BP 114/53; PULSE 69; RESP 19; TEMP 36.7; O2SAT 100
[2024-07-08 07:41] VITALS: BP 137/65; PULSE 69; RESP 18; TEMP 36.8; O2SAT 99
[2024-07-08 08:28] LABS: Hematocrit 24.2 % (42.0-52.0); Hemoglobin 7.9 g/dl (14.0-18.0); Mean Corpuscular HGB Conc 32.6 g/dl (31.0-36.0); Mean Corpuscular Hemoglobin 31.7 pg (27.0-33.0); Mean Corpuscular Volume 97.2 fL (80.0-98.0); Mean Platelet Volume 9.3 fL (9.4-12.4); Red Blood Count 2.49 X10*6/uL (4.60-5.80); Red Cell Distribution Width 18.6 % (11.0-16.0); White Blood Count 5.3 X10*3/uL (4.8-10.8)
[2024-07-08 08:34] LABS: Platelet Count 82 X10*3/uL (160-400)
[2024-07-08 09:12] LABS: Troponin-I High Sensitivity 102.7 ng/L (<3.5-35.0)
[2024-07-08 09:13] LABS: Anion Gap 16 (12-20); Blood Urea Nitrogen 40 mg/dL (9-16); Calcium 9.4 mg/dL (8.4-10.2); Carbon Dioxide 28 mmol/L (22-29); Chloride 100 mmol/L (96-108); Creatinine Clr Calc Pharmacy 9.7; Estimated Glomerular Filt Rate 6; Glucose Random 81 mg/dL (60-115); Potassium 6.2 mmol/L (3.3-5.1); Sodium 138 mmol/L (135-145)
[2024-07-08 09:23] VITALS: BP 137/65; PULSE 69
[2024-07-08] MEDS: Docusate Sodium 100 MG CAPSULE 200 MG PO (09:23)
[2024-07-08] MEDS: amLODIPine Besylate 10 MG TABLET PO (09:23)
[2024-07-08] MEDS: Metoprolol Succinate ER 50 MG TAB.ER.24H PO (09:23)
[2024-07-08] MEDS: 0.9 % Sodium Chloride Flush 3 ML SYRINGE IVFLUSH ×2 (09:23→16:28)
--- NOTE | 2024-07-08 09:31 | MHC.CM.PN ---
IMM 07/08. Pt self-care, lives alone at home. Pt is legally blind, he uses a cane and a walker. Pt active with [facility], outpt HD M/W/F in [place], and outpt wound care clinic and pain clinic visits. Pts sister will transport him home at discharge. New HCP completed with pt, now on file. PCP: Dr. Leo Saavedra
[2024-07-08 11:26] VITALS: BP 150/65; PULSE 67; RESP 18; TEMP 36.3; O2SAT 100
--- NOTE | 2024-07-08 11:50 | HO.PM.IMPN ---
Subjective Subjective Date of Service: 07/08/24 Interval History: sob improved Physical Exam Vital Signs: Vital Signs: Last Vital Signs Temp 97.4 F 07/08/24 11:26 Pulse 67 07/08/24 11:26 Resp 18 07/08/24 11:26 BP 150/65 H 07/08/24 11:26 Pulse Ox 100 07/08/24 11:26 O2 Del Method Room Air 07/08/24 11:26 O2 Flow Rate 5 07/08/24 07:41 BMI result Body Mass Index 33.6 General: AO X 3, no acute distress Resp: CTA bilateral, no accessory muscles used CVS: S1,S2,RRR GI: soft, non tender, non distended Neuro: motor grossly intact, alert Psych: appropriate affect, appropriate insight Objective Data Active Medications Acetaminophen (Acetaminophen 325 Mg Tablet) 650 mg PO Q6H PRN PRN Reason: Pain, Mild 1-3,fever,headache Last Admin: 07/07/24 20:42 Dose: 650 mg Documented By: FATIMAH Amlodipine Besylate (Amlodipine Besylate 10 Mg Tablet) 10 mg PO DAILY [facility]; Protocol Last Admin: 07/08/24 09:23 Dose: 10 mg Documented By: KRISS Calcium Carbonate (Calcium Carbonate 750 Mg Tab.Chew) 750 mg PO Q4H PRN PRN Reason: Heartburn Docusate Sodium (Docusate Sodium 100 Mg Capsule) 200 mg PO DAILY [facility] Last Admin: 07/08/24 09:23 Dose: 200 mg Documented By: KRISS Gabapentin (Gabapentin 100 Mg Capsule) 100 mg PO MOWEFR [facility] Last Admin: 07/07/24 15:24 Dose: Not Given Documented By: MIGUE Non-Admin Reason: Not In Room Levothyroxine Sodium (Levothyroxine Sodium 125 Mcg Tablet) 125 mcg PO DAILY@0600 [facility] Last Admin: 07/08/24 09:24 Dose: Not Given Documented By: KRISS Non-Admin Reason: Patient Refused Magnesium Hydroxide (Milk Of Magnesia 30 Ml Oral.Susp) 30 ml PO DAILY PRN PRN Reason: Constipation Melatonin (Melatonin 3 Mg Tablet) 6 mg PO BEDTIME PRN PRN Reason: Insomnia Metoprolol Succinate (Metoprolol Succinate Er 50 Mg Tab.Er.24h) 50 mg PO DAILY [facility]; Protocol Last Admin: 07/08/24 09:23 Dose: 50 mg Documented By: KRISS Non-Formulary Medication (Sucroferric Oxyhydroxide [Velphoro]) 500 mg PO DAILY [facility] Non-Formulary Medication (Sucroferric Oxyhydroxide [Velphoro]) 1,000 mg PO BEDTIME [facility] Oxycodone HCl (Oxycodone Hcl Immed Release 15 Mg Tablet) 15 mg PO Q8H PRN PRN Reason: Pain, Severe (Pain Scale 7-10) Last Admin: 07/08/24 09:25 Dose: 15 mg Documented By: KRISS Sodium Chloride (0.9 % Sodium Chloride Flush 3 Ml Syringe) 3 ml IVFLUSH QSHIFT [facility] Last Admin: 07/08/24 09:23 Dose: 3 ml Documented By: KRISS Trazodone HCl (Trazodone Hcl 100 Mg Tablet) 100 mg PO BEDTIME [facility] Last Admin: 07/07/24 20:20 Dose: 100 mg Documented By: PAOLASU Labs 07/08/24 08:10 07/08/24 08:10 Labs: Laboratory Results - last 24 hr 07/07/24 07/08/24 06:07 08:10 MCV 97.2 MCH 31.7 MCHC 32.6 RDW 18.6 H Plt Count 82 L D MPV 9.3 L Absolute Nucleated RBC 0.000 Nucleated RBC % (auto) 0.0 Anion Gap 16 Estim Creat Clear Calc 9.7 Estimated GFR 6 Random Glucose 81 Calcium 9.4 Blood Type O Positive Antibody Screen NEGATIVE Crossmatch See Detail Assessment and Plan (1) ESRD on hemodialysis: Status: Acute Plan 63M PMH end-stage renal disease, chronic venous stasis dermatitis with associated ulcers, restless leg syndrome, chronic gout, hypothyroid, hyperlipidemia, hypertension, coronary disease status post triple bypass, presented with chest pain and shortness of breath also noted to have hyperkalemia and anemia Chest pain/shortness of breath Relieved with hemodialysis Troponin flat, doubt ACS Acute on chronic anemia Likely inflammatory/end-stage renal disease, responded appropriately to 2 units of PRBC, monitor hemoglobin Hyperkalemia Lokelma, HD, monitor Coronary disease status post CABG Continue aspirin, Plavix Hypertension Amlodipine DVT prophylaxis-mechanical due to anemia Full code reason for continued hospitalization: Hyperkalemia Quality Stroke Does the patient have a stroke diagnosis?: No VTE Prior VTE?: No VTE Risk Level:: Medical - moderate - high VTE Device Contraindication: N/A - Device Ordered VTE Drug Contraindication: N/A - Med Ordered
[2024-07-08] MEDS: Sodium Zirconium Cyclosilicate 10 GM POWD.PACK PO ×2 (13:46→22:15)
[2024-07-08 14:57] VITALS: BP 151/71; PULSE 73; RESP 18; TEMP 36.4; O2SAT 100
[2024-07-08] MEDS: Sodium Chloride 0.65 % Nasal 44 ML SPRBTL 1 SPRAY NOSTRIL-B ×2 (16:28→21:29)
[2024-07-08 19:43] VITALS: BP 127/67; PULSE 61; RESP 18; TEMP 37.3; O2SAT 98
[2024-07-08] MEDS: traZODone HCL 100 MG TABLET PO (21:28)
--- NOTE | 2024-07-08 21:51 | P.PNNP_ITS ---
Subjective Subjective Date of Service: 07/08/24 Interval history: Seen and examined, events not4ed Physical Exam 2 Vital Signs: Vital Signs: Last Vital Signs Temp 99.1 F 07/08/24 19:43 Pulse 61 07/08/24 19:43 Resp 18 07/08/24 19:43 BP 127/67 07/08/24 19:43 Pulse Ox 98 07/08/24 19:43 O2 Del Method Room Air 07/08/24 19:43 O2 Flow Rate 2 07/08/24 14:57 BMI result Body Mass Index 33.6 Const: Other: Constitutional - Awake and Alert, No apparent distress Eyes - PERRLA, EOMI Cardiovascular - S1S2, RRR, No edema Respiratory - dim sounds; breathing comfortably Gastrointestinal - NT / ND; +BS; No rebound or guarding - No CVA tenderness Extremities - no calf tenderness bilaterally, no swelling Musculoskeletal - Normal inspection, normal ROM Skin - chronic venous stasis changes; no evidence of cellulitis Neurological - Alert & oriented x3, No focal deficit Psychological - Appropriate affect Objective Data Labs 07/08/24 08:10 07/08/24 08:10 Labs: Laboratory Results - last 24 hr 07/07/24 07/08/24 05:44 08:10 WBC 5.3 RBC 2.49 L Hgb 7.9 L Hct 24.2 L MCV 97.2 MCH 31.7 MCHC 32.6 RDW 18.6 H Plt Count 82 L D MPV 9.3 L Absolute Nucleated RBC 0.000 Nucleated RBC % (auto) 0.0 Smear Path Review SEE NOTE Sodium 138 Potassium 6.2 H* Chloride 100 Carbon Dioxide 28 Anion Gap 16 BUN 40 H Creatinine 8.96 H* Estim Creat Clear Calc 9.7 Estimated GFR 6 Random Glucose 81 Calcium 9.4 Troponin I High Sens 102.7 H* Microbiology Microbiology Results: Microbiology 07/07/24 15:06 Blood - Venous Blood Culture - Preliminary No growth after 24 hours. 07/07/24 10:45 Blood - Venous Blood Culture - Preliminary No growth after 24 hours. Procedures Date of Service Date of Service: 07/08/24 Assessment & Plan Assessment and plan (1) Acute chest pain: Status: Acute (2) Anemia: Status: Acute (3) Acute hyperkalemia: Status: Acute (4) End stage chronic kidney disease: Status: Acute Plan 1. ESRD: HD today and then cont mwf but may need xtra UF and will reasses tomorrw 2. SOB: d/t CHF and/or Pneumonia--hosp team is evaluatin 3. Anemia: getting xfused 4. MBD of CKD: cont routine meds 5. Leg wounds: cont wound care 6. HyperK REC: Lokelma and HD schedueld for tomorrow, track Hb, EPO and Fe as noted will follow w team Time Spent With Patient Time: Total time managing care of this patient today ____ minutes. Progress Note: Quality Stroke Does the patient have a stroke diagnosis?: No
[2024-07-09] VITALS: BP 130/60; PULSE 64; RESP 16; TEMP 37.1; O2SAT 100
[2024-07-09 03:36] VITALS: BP 135/63; PULSE 63; RESP 16; TEMP 37.2; O2SAT 96
[2024-07-09 06:48] LABS: Hematocrit 22.6 % (42.0-52.0); Hemoglobin 7.4 g/dl (14.0-18.0); Mean Corpuscular HGB Conc 32.7 g/dl (31.0-36.0); Mean Corpuscular Hemoglobin 31.9 pg (27.0-33.0); Mean Corpuscular Volume 97.4 fL (80.0-98.0); Mean Platelet Volume 9.4 fL (9.4-12.4); Red Blood Count 2.32 X10*6/uL (4.60-5.80); Red Cell Distribution Width 17.4 % (11.0-16.0); White Blood Count 6.4 X10*3/uL (4.8-10.8)
[2024-07-09 06:49] LABS: Platelet Count 72 X10*3/uL (160-400)
[2024-07-09 07:44] LABS: Anion Gap 14 (12-20); Blood Urea Nitrogen 35 mg/dL (9-16); Calcium 8.9 mg/dL (8.4-10.2); Carbon Dioxide 27 mmol/L (22-29); Chloride 100 mmol/L (96-108); Creatinine Clr Calc Pharmacy 12.1; Estimated Glomerular Filt Rate 8; Glucose Random 87 mg/dL (60-115); Potassium 4.4 mmol/L (3.3-5.1); Sodium 137 mmol/L (135-145)
[2024-07-09 09:01] VITALS: BP 148/76; PULSE 88; RESP 18; TEMP 36.5; O2SAT 98
[2024-07-09] MEDS: 0.9 % Sodium Chloride Flush 3 ML SYRINGE IVFLUSH (09:22)
[2024-07-09] MEDS: Metoprolol Succinate ER 50 MG TAB.ER.24H PO (09:22)
[2024-07-09] MEDS: Docusate Sodium 100 MG CAPSULE 200 MG PO (09:22)
[2024-07-09] MEDS: Levothyroxine Sodium 125 MCG TABLET PO (09:23)
[2024-07-09] MEDS: amLODIPine Besylate 10 MG TABLET PO (09:23)
[2024-07-09] MEDS: oxyCODONE HCl Immed Release 15 MG TABLET PO (09:25)
--- NOTE | 2024-07-09 09:57 | P.DS_ITS ---
DS: Providers Provider Date of Service: 07/09/24 Date of admission: 07/07/24 08:18 Date of discharge: 07/09/24 Primary care physician: Leo Saavedra MD Consults: 07/07/24 06:50 Consult to Nephrology Stat Consulting Provider: Geno Yung Reason for consultation: Chest pain, shortness of breath, elevated potassium, due for dialysis today Has provider been notified: Yes 07/07/24 13:45 Consult to Wound Care Routine Reason for consultation: wounds to ble DS: Diagnosis Discharge Diagnosis (1) Acute chest pain: Status: Acute (2) Anemia: Status: Acute (3) Acute hyperkalemia: Status: Acute (4) End stage chronic kidney disease: Status: Acute DS: Summary Hospital Course Hospital Course: from initial hpi: 63-year-old male with a past medical history of ESRD on hemodialysis Sunday, chronic venous stasis dermatitis and associated ulcers, restless leg syndrome, chronic gout, hypothyroidism, hyperlipidemia, hypertension, CAD status post triple bypass, previously documented intravenous drug use who presents to [facility] ED with chest pain and shortness of breath. The patient reports that he was on his way to his scheduled dialysis when he began feeling this way. He reported chest pain as substernal and pressure-like in nature. He reports missing dialysis all of last week due to family illness/. Upon arrival to the emergency room the patient was noted to be in visible distress. Was treated initially with BiPAP which he was not able to tolerate. Subsequently he was transitioned to non-rebreather mask and now is on 11 L OxyMask. His workup in the emergency room has revealed significant anemia with H&H 6.6/20.7. His initial troponin was 70.6 and repeat is pending. EKG does not show any acute changes. His potassium is 6.2 and his creatinine is 14. The patient has been given a dose of IV morphine and Lokelma 10. The case was discussed by the ED provider with the covering die stamper, Dr. Yung ([facility]) with plans for dialysis. 2 units of PRBCs ordered as well. Pt is seen and examined this AM around 815 AM. He reports resolution of his chest pain. He denies any hemotpysis, hematemesis, hematuria, melena. He does endorse bleeding from his wounds last week. hospital course: Patient was admitted for chest pain/shortness breath, this was relieved with hemodialysis, troponin with flat and no evidence of ACS. For acute on chronic anemia that is likely inflammatory/end-stage renal disease related he responded to 2 units of PRBC, no evidence of active bleed, hemoglobin should be monitored as outpatient. For hyperkalemia received low, on hemodialysis and resolved. For coronary artery disease status post CABG we will continue aspirin and Plavix. For hypertension continued on amlodipine. Patient is feeling better and will be discharged home. Time Attestation Discharge Coordination Time (in mins): 33 Quality: Safe Use of Opioids Does Pt have an Active Cancer Diagnosis on the Problem List?: No Quality: Stroke Does the patient have a stroke diagnosis?: No Physical Exam Vital Signs: Vital Signs: Last Vital Signs Temp 97.7 F 07/09/24 09:01 Pulse 88 07/09/24 09:01 Resp 18 07/09/24 09:01 BP 148/76 H 07/09/24 09:01 Pulse Ox 98 07/09/24 09:01 O2 Del Method Room Air 07/09/24 09:01 O2 Flow Rate 2 07/09/24 03:36 BMI result Body Mass Index 33.6 Const: Other: Constitutional - Awake and Alert, No apparent distress Eyes - PERRLA, EOMI Cardiovascular - S1S2, RRR, No edema Respiratory - dim sounds; breathing comfortably Gastrointestinal - NT / ND; +BS; No rebound or guarding - No CVA tenderness Extremities - no calf tenderness bilaterally, no swelling Musculoskeletal - Normal inspection, normal ROM Skin - chronic venous stasis changes; no evidence of cellulitis Neurological - Alert & oriented x3, No focal deficit Psychological - Appropriate affect DS: Data Data Completed and Pending Completed studies during hospitalization [Text1]: Procedures Performance of Urinary Filtration, Intermittent, Less than 6 Hours Per Day (10/08/23) Labs on day of discharge: Laboratory Results - last 24 hr 07/07/24 07/09/24 05:44 06:05 WBC 6.4 RBC 2.32 L Hgb 7.4 L Hct 22.6 L MCV 97.4 MCH 31.9 MCHC 32.7 RDW 17.4 H Plt Count 72 L MPV 9.4 Absolute Nucleated RBC 0.000 Nucleated RBC % (auto) 0.0 Smear Path Review SEE NOTE Sodium 137 Potassium 4.4 D Chloride 100 Carbon Dioxide 27 Anion Gap 14 BUN 35 H Creatinine 7.17 H* Estim Creat Clear Calc 12.1 Estimated GFR 8 Random Glucose 87 Calcium 8.9 Preliminary micro results at discharge 07/07/24 15:06 Blood Culture - Preliminary Blood - Venous No growth after 24 hours. 07/07/24 10:45 Blood Culture - Preliminary Blood - Venous No growth after 24 hours. Discharge Plan Discharge Anticipated Discharge Date/Time: 07/09/24 09:55 Patient Disposition: Home, Self-Care Discharge Diagnosis: anemia, hyperkalemia, sob Referrals: Leo Saavedra MD [Primary Care Provider] - 1 Week Discharge Medications: Continued amlodipine 10 mg tablet 10 mg PO DAILY Qty: 30 3RF metoprolol succinate 50 mg tablet extended release 24 hr 1 tab PO DAILY clopidogrel 75 mg tablet 75 mg PO DAILY levothyroxine 125 mcg tablet 125 mcg PO DAILY@0600 gabapentin 100 mg capsule 100 mg PO MOWEFR oxycodone 15 mg tablet 15 mg PO Q8H PRN (Reason: pain, severe) Qty: 30 0RF Rx Instructions: Partial Fill upon patient request. trazodone 100 mg tablet 100 mg PO BEDTIME Velphoro 500 mg tablet,chewable 500 mg PO DAILY Velphoro 500 mg tablet,chewable 1,000 mg PO BEDTIME aspirin 81 mg Tablet,Chewable 81 mg PO DAILY docusate sodium 100 mg Tablet 200 mg PO DAILY cholecalciferol (vitamin D3) 25 mcg (1,000 unit) Tablet 25 mcg PO DAILY Discharge Orders: Discharge Order (Routine); Ordered 07/09/24 Ordered By: Ji Cortes Diet: Advance to usual diet Activity on Discharge: As tolerated Stand Alone Forms: Patient Portal Discharge page Print Language: Yakut Care Plan Goals: recovery Health Concerns: anemia, hyperk Plan of Treatment: continue hd, low K diet, monitor hgb outpatient Assessment: see above
--- NOTE | 2024-07-09 10:30 | MHC.CM.PN ---
Pt is medically cleared for discharge home with resumption of previous [facility] services, outpt HD M/W/F in [place], and outpt wound care clinic and pain clinic visits, pts sister will transport him home.
--- NOTE | 2024-07-09 10:41 | W.MHC.F2F ---
Service Date Service Date: 07/09/24 Encounter Date of encounter: 07/09/24 Reasons for Services Signs and symptoms assessed: weakness due to hospital stay Reason for mcc: medication management, medication treatment and teach disease management Homebound: Leaving the home is medically contraindicated at this time without the asist of a device and/or another person due th the listed conditions above and below. Reason homebound: unsteady gait / fall risk Certification: Based on the above findings, I certify that this patient is confined to the home and needs intermittent mcc care, physical therapy and/or speech therapy, or continues to need occupational therapy. The patient is under my care, and I have initiated the establishment of the plan of care. The patient will be followed by a physician who will periodically review the plan of care. Time Spent With Patient Time: Total time managing care of this patient today ____ minutes.
--- NOTE | 2024-07-09 17:31 | P.PNNP_ITS ---
Subjective Subjective Date of Service: 07/09/24 Interval history: Seen and examined on HD, events not4ed Physical Exam 2 Vital Signs: Vital Signs: Last Vital Signs Temp 97.7 F 07/09/24 09:01 Pulse 88 07/09/24 09:01 Resp 18 07/09/24 09:01 BP 148/76 H 07/09/24 09:01 Pulse Ox 98 07/09/24 09:01 O2 Del Method Room Air 07/09/24 09:01 O2 Flow Rate 2 07/09/24 03:36 BMI result Body Mass Index 33.6 Const: Other: Constitutional - Awake and Alert, No apparent distress Eyes - PERRLA, EOMI Cardiovascular - S1S2, RRR, No edema Respiratory - dim sounds; breathing comfortably Gastrointestinal - NT / ND; +BS; No rebound or guarding - No CVA tenderness Extremities - no calf tenderness bilaterally, no swelling Musculoskeletal - Normal inspection, normal ROM Skin - chronic venous stasis changes; no evidence of cellulitis Neurological - Alert & oriented x3, No focal deficit Psychological - Appropriate affect Objective Data Labs 07/09/24 06:05 07/09/24 06:05 Labs: Laboratory Results - last 24 hr 07/09/24 06:05 WBC 6.4 RBC 2.32 L Hgb 7.4 L Hct 22.6 L MCV 97.4 MCH 31.9 MCHC 32.7 RDW 17.4 H Plt Count 72 L MPV 9.4 Absolute Nucleated RBC 0.000 Nucleated RBC % (auto) 0.0 Sodium 137 Potassium 4.4 D Chloride 100 Carbon Dioxide 27 Anion Gap 14 BUN 35 H Creatinine 7.17 H* Estim Creat Clear Calc 12.1 Estimated GFR 8 Random Glucose 87 Calcium 8.9 Microbiology Microbiology Results: Microbiology 07/07/24 10:45 Blood - Venous Blood Culture - Preliminary No growth after 48 hours. 07/07/24 15:06 Blood - Venous Blood Culture - Preliminary No growth after 24 hours. Procedures Date of Service Date of Service: 07/09/24 Assessment & Plan Assessment and plan (1) Acute chest pain: Status: Acute (2) Anemia: Status: Acute (3) Acute hyperkalemia: Status: Acute (4) End stage chronic kidney disease: Status: Acute Plan 1. ESRD: HD today 2. SOB: d/t CHF and/or Pneumonia--hosp team is evaluatin 3. Anemia: getting xfused to maintain Hb > 7.0 4. MBD of CKD: cont routine meds 5. Leg wounds: cont wound care 6. HyperK: controlled with HD and Lokelma prn REC: Lokelma as needed, track Hb, EPO and Fe as noted will follow w team Time Spent With Patient Time: Total time managing care of this patient today ____ minutes. Progress Note: Quality Stroke Does the patient have a stroke diagnosis?: No
--- NOTE | 2024-07-09 20:38 | P.CONNP_ITS ---
History of Present Illness Reason for Consult Consult date: 07/07/24 Chief Complaint Chief complaint: chest pain, shortness of breath History of Present Illness Narrative: ESRD PT adm with SOB requiring emergent HD Review of Systems Review of Systems Negative except HPI/interval history. [facility] Past Medical History Medical History CKD (chronic kidney disease) Chronic wound Bilateral leg pain Acquired hypothyroidism Hyperlipidemia Obesity, Class II, BMI 35-39.9 Chronic gout due to renal impairment Hallucinations Stasis dermatitis of both legs Iron deficiency anemia ESRD on dialysis Sensory neuropathy Polyp of colon, adenomatous Moderate episode of recurrent major depressive disorder Impaired fasting glucose Restless leg syndrome Impacted cerumen of left ear Foot pain, bilateral Seasonal allergic rhinitis due to pollen Chronic diastolic heart failure Essential hypertension Atherosclerosis of [place] coronary artery of [place] heart without angina pectoris Normocytic anemia Thrombocytopenia Neuropathy Acute renal failure on dialysis Blind right eye Sleep apnea Gout Edema Chronic kidney disease HTN (hypertension) Surgical History Surgical History History of coronary artery bypass graft Social History Social History Household Members: None Housing: Apartment Do you presently have visiting nurse or other home services: Yes ([facility] twice/week) Alcohol intake: former Patient Tobacco Use Status: Never used Tobacco Substance Use Type: Marijuana service: No Meds Allergies Allergy/AdvReac Type Severity Reaction Status Date / Time zolpidem AdvReac Hallucinati Verified 07/07/24 05:37 ons Home Medications ?Medication ?Instructions ?Recorded ?Confirmed ?Last Taken ?Type metoprolol succinate 50 mg 1 tab PO DAILY 01/18/22 07/07/24 07/06/24 History tablet,extended release 24 hr aspirin 81 mg chewable tablet 81 mg PO DAILY 11/29/22 07/07/24 07/06/24 History cholecalciferol (vitamin D3) 25 25 mcg PO DAILY 11/29/22 07/07/24 07/06/24 History mcg (1,000 unit) tablet docusate sodium 100 mg tablet 200 mg PO DAILY 11/29/22 07/07/24 07/06/24 History clopidogrel 75 mg tablet 75 mg PO DAILY 10/08/23 07/07/24 07/06/24 History gabapentin 100 mg capsule 100 mg PO MOWE 10/08/23 07/07/24 07/04/24 History levothyroxine 125 mcg tablet 125 mcg PO DAILY@0600 10/08/23 07/07/24 07/06/24 History sucroferric oxyhydroxide 500 mg 1,000 mg PO BEDTIME 07/07/24 07/07/24 07/06/24 History chewable tablet (Velphoro) sucroferric oxyhydroxide 500 mg 500 mg PO DAILY 07/07/24 07/07/24 07/06/24 History chewable tablet (Velphoro) trazodone 100 mg tablet 100 mg PO BEDTIME 07/07/24 07/07/24 07/06/24 History Physical Exam Vital Signs: Last Vital Signs Temp 97.7 F 07/09/24 09:01 Pulse 88 07/09/24 09:01 Resp 18 07/09/24 09:01 BP 148/76 H 07/09/24 09:01 Pulse Ox 98 07/09/24 09:01 O2 Del Method Room Air 07/09/24 09:01 O2 Flow Rate 2 07/09/24 03:36 BMI result Body Mass Index 33.6 Const Other: Constitutional - Awake and Alert, No apparent distress Eyes - PERRLA, EOMI Cardiovascular - S1S2, RRR, No edema Respiratory - dim sounds; breathing comfortably Gastrointestinal - NT / ND; +BS; No rebound or guarding - No CVA tenderness Extremities - no calf tenderness bilaterally, no swelling Musculoskeletal - Normal inspection, normal ROM Skin - chronic venous stasis changes; no evidence of cellulitis Neurological - Alert & oriented x3, No focal deficit Psychological - Appropriate affect Results Lab Results 07/09/24 06:05 07/09/24 06:05 Lab results: Chemistry 07/07/24 07/08/24 07/09/24 05:44 08:10 06:05 Sodium 136 138 137 Potassium 6.2 H* D 6.2 H* 4.4 D Carbon Dioxide 21 L 28 27 BUN 79 H 40 H 35 H Creatinine 14.11 H* 8.96 H* 7.17 H* Calcium 9.8 9.4 8.9 Hematology 07/07/24 07/08/24 07/09/24 05:44 08:10 06:05 WBC 8.1 5.3 6.4 Hgb 6.6 L* D 7.9 L 7.4 L Plt Count 133 L D 82 L D 72 L Assessment and Plan (1) Acute chest pain: Status: Acute (2) Anemia: Status: Acute (3) Acute hyperkalemia: Status: Acute (4) End stage chronic kidney disease: Status: Acute Plan 1. ESRD: HD today 2. SOB: d/t CHF and/or Pneumonia--hosp team is evaluatin 3. Anemia: getting xfused to maintain Hb > 7.0 4. MBD of CKD: cont routine meds 5. Leg wounds: cont wound care 6. HyperK: controlled with HD and Lokelma prn REC: Lokelma as needed, track Hb, EPO and Fe as noted will follow w team Procedures Date of Service Date of Service: 07/09/24
== END 2024-07-09 12:09 | disposition home health service (06) | DRG 640 ==
LOC: HO.ED 07:12 → HO.EDOVER 08:29 → HO.IMC 12:42
PROVIDERS: Admitting Provider Family Medicine; Emergency Provider Emergency Medicine Emergency Medical Services; PCP Internal Medicine; Visit Provider Internal Medicine
DX: E87.5 Hyperkalemia (principal); N18.6 End stage renal disease; I13.2 Hypertensive heart and chronic kidney disease with heart failure and with stage 5 chronic kidney disease, or end stage renal disease; I87.313 Chronic venous hypertension (idiopathic) with ulcer of bilateral lower extremity; L97.829 Non-pressure chronic ulcer of other part of left lower leg with unspecified severity; L97.819 Non-pressure chronic ulcer of other part of right lower leg with unspecified severity; I50.32 Chronic diastolic (congestive) heart failure; E03.9 Hypothyroidism, unspecified; D63.1 Anemia in chronic kidney disease; N25.0 Renal osteodystrophy; I25.10 Atherosclerotic heart disease of native coronary artery without angina pectoris; Z95.1 Presence of aortocoronary bypass graft; Z99.2 Dependence on renal dialysis; Z91.158 Patient's noncompliance with renal dialysis for other reason; Z79.02 Long term (current) use of antithrombotics/antiplatelets; Z79.82 Long term (current) use of aspirin; Z79.890 Hormone replacement therapy; Z79.899 Other long term (current) drug therapy
CPT/HCPCS: 36415; 71045; 80048; 80053; 80307; 82803; 83690; 84484; 85025; 85027; 85610; 85730; 86850; 86900; 86901; 86923; 87040; 90999; 93005; 99285; J2270; P9016

== ENCOUNTER → 2024-07-07 05:35 | Outpatient (BNV) | payer MEDICARE, MEDICAID, SELFPAY | PROVIDERS: Admitting Provider Family Medicine; Emergency Provider Emergency Medicine Emergency Medical Services; PCP Internal Medicine; Visit Provider Internal Medicine | DX: I44.0 Atrioventricular block, first degree (principal) | CPT/HCPCS: 93010 ==

== ENCOUNTER → 2024-07-07 05:35 | Outpatient (BNV) | payer MEDICARE, MEDICAID, SELFPAY | PROVIDERS: Emergency Provider Emergency Medicine Emergency Medical Services; PCP Internal Medicine; Visit Provider Radiology Diagnostic Radiology | DX: R07.9 Chest pain, unspecified (principal); R06.02 Shortness of breath | CPT/HCPCS: 71045 ==

== ENCOUNTER → 2024-07-07 08:18 | Outpatient (BNV) | payer MEDICARE, MEDICAID, SELFPAY | PROVIDERS: Admitting Provider Family Medicine; Emergency Provider Emergency Medicine Emergency Medical Services; PCP Internal Medicine; Visit Provider Family Medicine | DX: R07.9 Chest pain, unspecified (principal); N18.6 End stage renal disease; D63.1 Anemia in chronic kidney disease; E87.5 Hyperkalemia | CPT/HCPCS: 99223; 99233; 99239; G0180 ==